=== PATIENT | male | born 1940 | race Native Hawaiian/Other Pacific Islander ===

== ENCOUNTER 2018-06-19 12:48 | Inpatient (IN) | payer MEDICARE, OTHER ==
[2018-06-19 12:49] VITALS: BMI 24.7
[2018-06-19 14:17] LABS: MEAN CORPUSCULAR HEMOGLOBIN 19.3 pg (27.0-31.0); MEAN CORPUSCULAR HGB CONC 31.6 g/dL (33.0-37.0); MEAN PLATELET VOLUME 9.5 fL (7.2-11.7); PLATELET COUNT 233 K/uL (130-400); RBC 7.03 Mil/uL (4.40-5.90); RED CELL DISTRIBUTION WIDTH 19.9 % (11.5-14.5)
[2018-06-19 14:22] LABS: HEMOGLOBIN 13.6 g/dL (12.0-18.0); MEAN CELL VOLUME 60.9 fL (80.0-94.0); WHITE BLOOD COUNT 13.7 K/uL (4.8-10.8)
--- NOTE | 2018-06-19 14:22 | C.PDOC ---
History Of Present Illness 77 year old male presents to ED with complaint of lightheadedness and generalzied weakness. Patient is a poor historian. Patient has a PMHx of hypertension, diabetes, and colorectal cancer. Patient also complains of chest pain that began yesterday. he cannot characterize his pain. states he fell weak and "fell" also rpeorts abdominal pain, again cannot characeterize his pain. very poor historian He is also complaining of experiencing nausea and vomiting. Patient denies fever. all symptoms since yesterday Time Seen by Provider: 06/19/18 13:14 Chief Complaint (Nursing): Dizziness/Lightheaded History Per: Patient History/Exam Limitations: no limitations Onset/Duration Of Symptoms: Days (1) Current Symptoms Are (Timing): Still Present Seizure Or Post-ictal Symptoms: None Severity: None Past Medical History Reviewed: Historical Data, Nursing Documentation, Vital Signs Vital Signs: Last Vital Signs Temp 97.7 F 06/19/18 13:12 Pulse 73 06/19/18 13:12 Resp 20 06/19/18 13:12 BP 180/89 H 06/19/18 13:12 Pulse Ox 94 L 06/19/18 13:12 - Medical History PMH: Diabetes, HTN Other PMH: Colorectal cancer Surgical History: No Surg Hx - [facility] Procedures ENDO EXCISION/DEST OF LESION OR TISSUE OF STOMACH (02/16/13) ENDOSC POLYPECTOMY OF LG INTEST (01/05/13) ESOPHAGOGASTRODUODENOSCOPY [EGD] W/CLOSED BIOPSY (01/05/13) INCIS W REM OF FORIEGN BODY OR DEV FROM SKIN & SUBCUT TISSUE (04/14/13) LG BOWEL STOMA CLOSURE (09/09/12) Family History: States: Unknown Family Hx - Social History Hx Tobacco Use: No Hx Alcohol Use: No Hx Substance Use: No - Immunization History Hx Tetanus Toxoid Vaccination: Yes Hx Influenza Vaccination: Yes Hx Pneumococcal Vaccination: Yes Review Of Systems Constitutional: Positive for: Weakness. Negative for: Fever, Chills Cardiovascular: Positive for: Chest Pain, Light Headedness. Negative for: Palpitations Respiratory: Negative for: Cough, Shortness of Breath Gastrointestinal: Positive for: Nausea, Vomiting. Negative for: Abdominal Pain Neurological: Negative for: Weakness, Numbness, Headache, Dizziness Physical Exam - Physical Exam Appears: Well, Non-toxic, No Acute Distress Skin: Normal Color, Warm, Dry Head: Atraumatic, Normacephalic Neck: Normal ROM, Supple Chest: Symmetrical, No Deformity Cardiovascular: Rhythm Regular, No Murmur Respiratory: No Accessory Muscle Use Gastrointestinal/Abdominal: Soft, No Tenderness Neurological/Psych: Oriented x3, Normal Speech, Normal Cognition ED Course And Treatment - Laboratory Results Result Diagrams: 06/22/18 08:28 06/22/18 08:28 ECG: Interpreted By Me, Viewed By Me ECG Rhythm: Sinus Rhythm, R BBB ECG Interpretation: Normal Interpretation Of ECG: No previous EKG for comparison. Rate From EC O2 Sat by Pulse Oximetry: 94 - Other Rad CXR X-Ray: Interpreted by Me, Viewed By Me Interpretation: Accession No. : [id number]. Patient Name / ID : KANDACE Mims / [id number]. Exam Date : 06/19/2018 13:46:09 ( Approved ). Study Comment : Sex / Age : M / 77Y. Creator : Viktor Valladares MD. Dictator : Viktor Valladares MD. Armature Connector : Stud Master/Mistress : Viktor Valladares MD. Approver2 : Report Date : 06/19/2018 15:30:52. My Comment : . Date of service: 06/19/2018. HISTORY: Chest pain. COMPARISON: Comparison made with prior chest radiograph dated 09/15/2012. FINDINGS: LUNGS: Poor inspiration with low lung volumes, crowded bronchovascular markings and minor bibasilar atelectasis. PLEURA: No significant pleural effusion identified, no pneumothorax apparent. CARDIOVASCULAR: Mild aortic atherosclerotic calcification present. Heart size borderline enlarged.. OSSEOUS STRUCTURES: No significant abnormalities. VISUALIZED UPPER ABDOMEN: Normal. OTHER FINDINGS: Previously noted right IJ central venous access catheter has been removed. IMPRESSION: Poor inspiration with low lung volumes, crowded bronchovascular markings and minor bibasilar atelectasis. NIHSS Stroke Scale 2 - Date/Time Evaluation Performed Date Performed: 06/19/18 Time Performed: 00:56 When Was NIHSS Performed: Baseline - How Severe is the Stroke Level of Consciousness: 0=Alert LOC to Questions: 0=Both comments correct LOC to commands: 0=Obeys both correctly Best Gaze: 0=Normal Visual: 0=No visual loss Facial: 0=Normal Motor Arm - Left: 0=No drift Motor Arm - Right: 0=No drift Motor Leg - Left: 0=No drift Motor Leg - Right: 0=No drift Limb Ataxia: 0=Absent Sensory: 0=Normal Best Language: 0=No aphasia Dysarthia: 0=Normal articulation Extinction & Inattention (Neglect): 0=Normal, no object Score: 0 rTPA Inclusion/Exclusion - Refusal of Treatment Patient Refused Treatment: No - Inclusion Criteria for Altepase Patient is 18 years or Older: Yes The Clinical Diagnosis of Ischemic Stroke That is Causing a Potentially Disabling Neurological Deficit: No Time of Onset is Well Established to be Less Than 270 Minute Before Treatment Would Begin: No Risk/Benefit Discussed With Patient/Family Member Present: Yes Medical Decision Making Medical Decision Making: Impression: 77 year old male with lightheadedness, weakness, and chest pain. ro acs, pe, abdominal, intracranil pathology Plan: EKG and CXR ordered for patient. Labs ordered with troponin and CBC. labs show mild leukcytosis. head ct infarct ?age, mild elevated trop heparin asa started. accepted pmd pain free in er s/p meds. ct abd no acute findings. discussed with pmd accepts. no hemorrhage on ct. heparin startted for nstemi. neuro intact in er. Disposition - Disposition Disposition: HOSPITALIZED Disposition Time: 18:00 Condition: FAIR - Clinical Impression Clinical Impression: Syncope, NSTEMI (non-ST elevated myocardial infarction), Stroke - Scribe Statement The provider has reviewed the documentation as recorded by the Scribe (Ayah Nicole) All medical record entries made by the Scribe were at my direction and personally dictated by me. I have reviewed the chart and agree that the record accurately reflects my personal performance of the history, physical exam, medical decision making, and the department course for this patient. I have also personally directed, reviewed, and agree with the discharge instructions and disposition. Decision To Admit - Pt Status Changed To: Hospital Disposition Of: Inpatient - Admit Certification Admit to Inpatient:: After my assessment, the patient will require hospitalization for at least two midnights. This is because of the severity of symptoms shown, intensity of services needed, and/or the medical risk in this patient being treated as an outpatient. - InPatient: Physician Admission Certification: I certify that this patient requires 2 or more midnights of care for the following reason:: needs cards and neuro eval - . Bed Request Type: Telemetry Admitting Physician: Brian Anthony Patient Diagnosis: Syncope, NSTEMI (non-ST elevated myocardial infarction), Stroke
[2018-06-19 14:27] LABS: PROTHROMBIN TIME 10.9 SECONDS (9.7-12.2)
[2018-06-19 15:00] LABS: LYMPHOCYTE 11 % (20-40); MONOCYTE 4 % (0-10); NEUTROPHIL 85 % (50-75); TOTAL CELLS COUNTED 100
[2018-06-19 15:01] LABS: ANISOCYTOSIS MODERATE; HYPOCHROMIC SLIGHT; MICROCYTOSIS MODERATE; PLATELET ESTIMATE NORMAL (NORMAL); POIKILOCYTOSIS SLIGHT; POLYCHROMIC SLIGHT; TARGET CELLS SLIGHT
[2018-06-19 15:02] LABS: OVALOCYTES SLIGHT; SCHISTOCYTES SLIGHT; SPHEROCYTES SLIGHT; TEARDROP CELLS SLIGHT
--- NOTE | 2018-06-19 15:34 | RAD ---
Date of service: 06/19/2018 HISTORY: Chest pain COMPARISON: Comparison made with prior chest radiograph dated 09/15/2012 FINDINGS: LUNGS: Poor inspiration with low lung volumes, crowded bronchovascular markings and minor bibasilar atelectasis. PLEURA: No significant pleural effusion identified, no pneumothorax apparent. CARDIOVASCULAR: Mild aortic atherosclerotic calcification present. Heart size borderline enlarged.. OSSEOUS STRUCTURES: No significant abnormalities. VISUALIZED UPPER ABDOMEN: Normal. OTHER FINDINGS: Previously noted right IJ central venous access catheter has been removed. IMPRESSION: Poor inspiration with low lung volumes, crowded bronchovascular markings and minor bibasilar atelectasis.
[2018-06-19 15:49] LABS: ALB/GLOB RATIO 1.4 (1.0-2.1); ALBUMIN 5.1 g/dL (3.5-5.0); ALT/SGPT 23 U/L (21-72); AST/SGOT 31 U/L (17-59); BLOOD UREA NITROGEN 14 mg/dL (9-20); CALCIUM 10.2 mg/dl (8.6-10.4); GFR NON-AFRICAN AMERICAN > 60; LIPASE 44 U/L (23-300)
[2018-06-19 16:00] LABS: URINE BILIRUBIN NEGATIVE (NEGATIVE); URINE BLOOD NEGATIVE (NEGATIVE); URINE CLARITY Clear (Clear); URINE COLOR Straw (YELLOW); URINE GLUCOSE (UA) 3+ mg/dL (Normal); URINE LEUKOCYTE ESTERASE NEG Leu/uL (Negative); URINE PROTEIN 2+ mg/dL (NEGATIVE); URINE UROBILINOGEN NORMAL mg/dL (0.2-1.0)
[2018-06-19] MEDS ORDERED: Iohexol 350mg/ml 100 ML ONE (16:42)
[2018-06-19] MEDS ORDERED: Labetalol 25mg/5ml Syringe IVP STA (18:47)
[2018-06-19] MEDS ORDERED: Heparin25000 units/250ml 1/2NS 25,000 UNITS/250 ML BAG IV ONE (18:47)
[2018-06-19] MEDS ORDERED: Labetalol 5mg/ml (4ml) ONE (19:02)
[2018-06-19] MEDS ORDERED: Aspirin 325 mg EC Tablets PO ONE (19:02)
--- NOTE | 2018-06-20 04:17 | HP ---
HISTORY OF PRESENT ILLNESS: This is a 77-year-old Israeli male who came to the emergency room with history of feeling lightheaded and dizzy. The patient complained of generalized weakness. The patient also complained of chest pain for the last 24 hours. The patient has nausea and vomiting. The patient is a poor historian. No diaphoresis. Dyspnea on exertion present. No edema of the legs. No fever. REVIEW OF SYSTEMS: CARDIOVASCULAR SYSTEM: Positive for chest pain, lightheadedness. RESPIRATORY SYSTEM: Positive for dyspnea on exertion. GASTROINTESTINAL SYSTEM: Positive for nausea and feeling vomiting. CENTRAL NERVOUS SYSTEM: Complaint of lightheadedness and generalized weakness. Dizziness. No fever. No edema on the legs. GENITOURINARY: No urinary complaint. PSYCHIATRIC: The patient is stable. All other systems are negative. FAMILY HISTORY: No known inherited disease. SOCIAL HISTORY: Nonsmoker, nonalcoholic. No IVDA. ALLERGIES: NO KNOWN ALLERGY. MEDICATIONS: The patient's medications reviewed by me. PAST MEDICAL HISTORY: History of colorectal cancer, hypertension, diabetes. PHYSICAL EXAMINATION: GENERAL: This is a 77-year-old Israeli male, alert, oriented, tachypneic, dyspneic. VITAL SIGNS: Temperature 97.7, pulse 73, respirations 20, blood pressure 180/89 mmHg, pulse ox is 94% at room air. HEENT: Normal. NECK: JVP flat. Carotid, no bruits. LUNGS: No rales. No wheezing. HEART: S1 and S2, normal. No gallop. No murmur. ABDOMEN: Soft, nontender. No organomegaly. CENTRAL NERVOUS SYSTEM: No focal neurological deficit. No edema of the legs. LABORATORY DATA: On admission, EKG, no acute ST-T changes. Leukocytosis present. Blood sugar 204. Troponin is positive. IMPRESSION: Known ST-elevation, myocardial infarction, coronary artery disease, congestive heart failure, hypertension, diabetes, colorectal cancer. PLAN: The patient will be admitted to the floor. We will do workup to rule out myocardial infarction. Other workup as needed. Brian Anthony MD
--- NOTE | 2018-06-20 06:58 | CP.PCM.CON ---
History of Present Illness - History of Present Illness History of Present Illness: 77 M consulted for chest pain and NonSTEMI Likely needs cardiac cath in am Patient already on IV Heparin and ASA ECHO ordered Plavix 75mg po x 1 given Will keep him NPO except medication for possible cath tomorrow 77 year old male presents to ED with complaint of lightheadedness and generalzied weakness. Patient is a poor historian. Patient has a PMHx of hypertension, diabetes, and colorectal cancer. Patient also complains of chest pain that began yesterday. he cannot characterize his pain. states he fell weak and "fell" also rpeorts abdominal pain, again cannot characeterize his pain. very poor historian He is also complaining of experiencing nausea and vomiting. Patient denies fever. all symptoms since yesterday Chief Complaint (Nursing): Dizziness/Lightheaded History Per: Patient History/Exam Limitations: no limitations Onset/Duration Of Symptoms: Days (1) Current Symptoms Are (Timing): Still Present Seizure Or Post-ictal Symptoms: None Severity: None Past Medical History Reviewed: Historical Data, Nursing Documentation, Vital Signs Vital Signs: Last Vital Signs Temp 97.7 F 06/19/18 13:12 Pulse 73 06/19/18 13:12 Resp 20 06/19/18 13:12 BP 180/89 H 06/19/18 13:12 Pulse Ox 94 L 06/19/18 13:12 - Medical History PMH: Diabetes, HTN Other PMH: Colorectal cancer Surgical History: No Surg Hx - [facility] Procedures ENDO EXCISION/DEST OF LESION OR TISSUE OF STOMACH (02/16/13) ENDOSC POLYPECTOMY OF LG INTEST (01/05/13) ESOPHAGOGASTRODUODENOSCOPY [EGD] W/CLOSED BIOPSY (01/05/13) INCIS W REM OF FORIEGN BODY OR DEV FROM SKIN & SUBCUT TISSUE (04/14/13) LG BOWEL STOMA CLOSURE (09/09/12) Family History: States: Unknown Family Hx - Social History Hx Tobacco Use: No Hx Alcohol Use: No Hx Substance Use: No - Immunization History Hx Tetanus Toxoid Vaccination: Yes Hx Influenza Vaccination: Yes Hx Pneumococcal Vaccination: Yes Review Of Systems Constitutional: Positive for: Weakness. Negative for: Fever, Chills Cardiovascular: Positive for: Chest Pain, Light Headedness. Negative for: Palpitations Respiratory: Negative for: Cough, Shortness of Breath Gastrointestinal: Positive for: Nausea, Vomiting. Negative for: Abdominal Pain Neurological: Negative for: Weakness, Numbness, Headache, Dizziness Physical Exam - Physical Exam Appears: Well, Non-toxic, No Acute Distress Skin: Normal Color, Warm, Dry Head: Atraumatic, Normacephalic Neck: Normal ROM, Supple Chest: Symmetrical, No Deformity Cardiovascular: Rhythm Regular, No Murmur Respiratory: No Accessory Muscle Use Gastrointestinal/Abdominal: Soft, No Tenderness Neurological/Psych: Oriented x3, Normal Speech, Normal Cognition Past Patient History - Past Medical History & Family History Past Medical History?: Yes - Past Social History Smoking Status: Never Smoked - CARDIAC Hx Hypertension: Yes - NEUROLOGICAL Hx Dizziness: Yes Hx Syncope: Yes - ENDOCRINE/METABOLIC Hx Endocrine Disorders: Yes Hx Diabetes Mellitus Type 2: Yes - HEMATOLOGICAL/ONCOLOGICAL Hx Blood Disorders: Yes Hx Cancer: Yes (Colorectal) Hx Chemotherapy: Yes (completed) - MUSCULOSKELETAL/RHEUMATOLOGICAL Hx Falls: Yes - GASTROINTESTINAL Hx Bowel Surgery: Yes (Colon CA removed) - PSYCHIATRIC Hx Substance Use: No - SURGICAL HISTORY Hx Surgeries: Yes Other/Comment: Colorectal surgery, hx of colostomy reversed. - ANESTHESIA Hx Anesthesia: Yes Hx Anesthesia Reactions: No Has any member of the family had a problem w/ anesthesia?: No Meds Allergies/Adverse Reactions: Allergies Allergy/AdvReac Type Severity Reaction Status Date / Time No Known Allergies Allergy Verified 06/19/18 13:16 - Medications Medications: Current Medications Aspirin (Aspirin Chewable) 81 mg PO DAILY [facility] Heparin Sodium/Sodium Chloride (Heparin 93851 Units/250ml 1/2 Normal Saline) 25,000 units in 250 mls @ 9.798 mls/hr IV .Q24H ONE; Protocol Stop: 06/20/18 18:46 Last Titration: 06/20/18 03:46 Dose: 9 units/kg/hr, 7.348 mls/hr Metoprolol Tartrate (Lopressor) 50 mg PO BID [facility] Last Admin: 06/19/18 22:12 Dose: 50 mg Sitagliptin Phosphate (Januvia) 100 mg PO DAILY [facility] Results - Vital Signs Recent Vital Signs: Last Vital Signs Temp 98.4 F 06/19/18 23:56 Pulse 68 06/20/18 00:59 Resp 20 06/19/18 23:56 BP 154/67 H 06/19/18 23:56 Pulse Ox 95 06/19/18 23:56 - Labs Result Diagrams: 06/21/18 06:54 06/21/18 06:54 Labs: Laboratory Results - last 24 hr 06/19/18 06/19/18 06/19/18 14:09 14:09 15:28 WBC 13.7 H D RBC 7.03 H Hgb 13.6 D Hct 42.8 MCV 60.9 L D MCH 19.3 L MCHC 31.6 L RDW 19.9 H Plt Count 233 MPV 9.5 Neutrophils % (Manual) 85 H Lymphocytes % (Manual) 11 L Monocytes % (Manual) 4 Platelet Estimate Normal Polychromasia Slight Hypochromasia (manual) Slight Poikilocytosis (manual Slight Anisocytosis (manual) Moderate Microcytosis (manual) Moderate Macrocytosis (manual) Slight Spherocytes Slight Target Cells Slight Tear Drop Cells Slight Ovalocytes Slight Schistocytes Slight PT 10.9 INR 1.0 APTT 26 D-Dimer, Quantitative Sodium 138 Potassium 4.9 Chloride 103 Carbon Dioxide 23 Anion Gap 18 BUN 14 Creatinine 0.7 L Est GFR ( Amer) > 60 Est GFR (Non-Af Amer) > 60 POC Glucose (mg/dL) Random Glucose 204 H D Calcium 10.2 Total Bilirubin 0.7 AST 31 ALT 23 Alkaline Phosphatase 116 Troponin I 0.1370 H* Total Protein 8.9 H Albumin 5.1 H Globulin 3.7 Albumin/Globulin Ratio 1.4 Lipase 44 Urine Color Urine Clarity Urine pH Ur Specific [place] Urine Protein Urine Glucose (UA) Urine Ketones Urine Blood Urine Nitrate Urine Bilirubin Urine Urobilinogen Ur Leukocyte Esterase Urine WBC (Auto) Urine RBC (Auto) 06/19/18 06/19/18 06/20/18 15:43 15:55 02:04 WBC RBC Hgb Hct MCV MCH MCHC RDW Plt Count MPV Neutrophils % (Manual) Lymphocytes % (Manual) Monocytes % (Manual) Platelet Estimate Polychromasia Hypochromasia (manual) Poikilocytosis (manual Anisocytosis (manual) Microcytosis (manual) Macrocytosis (manual) Spherocytes Target Cells Tear Drop Cells Ovalocytes Schistocytes PT INR APTT 128 H* D D-Dimer, Quantitative < 200 Sodium Potassium Chloride Carbon Dioxide Anion Gap BUN Creatinine Est GFR ( Amer) Est GFR (Non-Af Amer) POC Glucose (mg/dL) Random Glucose Calcium Total Bilirubin AST ALT Alkaline Phosphatase Troponin I Total Protein Albumin Globulin Albumin/Globulin Ratio Lipase Urine Color Straw Urine Clarity Clear Urine pH 6.0 Ur Specific [place] 1.028 Urine Protein 2+ H Urine Glucose (UA) 3+ H Urine Ketones 1+ H Urine Blood Negative Urine Nitrate Negative Urine Bilirubin Negative Urine Urobilinogen Normal Ur Leukocyte Esterase Neg Urine WBC (Auto) < 1 Urine RBC (Auto) 1 06/20/18 06:24 WBC RBC Hgb Hct MCV MCH MCHC RDW Plt Count MPV Neutrophils % (Manual) Lymphocytes % (Manual) Monocytes % (Manual) Platelet Estimate Polychromasia Hypochromasia (manual) Poikilocytosis (manual Anisocytosis (manual) Microcytosis (manual) Macrocytosis (manual) Spherocytes Target Cells Tear Drop Cells Ovalocytes Schistocytes PT INR APTT D-Dimer, Quantitative Sodium Potassium Chloride Carbon Dioxide Anion Gap BUN Creatinine Est GFR ( Amer) Est GFR (Non-Af Amer) POC Glucose (mg/dL) 185 H Random Glucose Calcium Total Bilirubin AST ALT Alkaline Phosphatase Troponin I Total Protein Albumin Globulin Albumin/Globulin Ratio Lipase Urine Color Urine Clarity Urine pH Ur Specific [place] Urine Protein Urine Glucose (UA) Urine Ketones Urine Blood Urine Nitrate Urine Bilirubin Urine Urobilinogen Ur Leukocyte Esterase Urine WBC (Auto) Urine RBC (Auto) Assessment & Plan - Assessment and Plan (Free Text) Assessment: 77 M consulted for chest pain and NonSTEMI Likely needs cardiac cath in am Patient already on IV Heparin and ASA ECHO ordered Plavix 75mg po x 1 given Will keep him NPO except medication for possible cath tomorrow
--- NOTE | 2018-06-20 08:35 | CT ---
Date of service: 06/19/2018 PROCEDURE: CT HEAD WITHOUT CONTRAST. HISTORY: generalized weakness COMPARISON: None available. TECHNIQUE: Axial computed tomography images were obtained through the head/brain without intravenous contrast. Radiation dose: Total exam DLP = 1006.91 mGy-cm. This CT exam was performed using one or more of the following dose reduction techniques: Automated exposure control, adjustment of the mA and/or kV according to patient size, and/or use of iterative reconstruction technique. FINDINGS: HEMORRHAGE: No intracranial hemorrhage. BRAIN: No mass effect or edema. Probable subacute infarct in the left cerebellum. 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 VENTRICLES: Unremarkable. No hydrocephalus. CALVARIUM: Unremarkable. PARANASAL SINUSES: Unremarkable as visualized. No significant inflammatory changes. MASTOID AIR CELLS: Unremarkable as visualized. No inflammatory changes. OTHER FINDINGS: None. IMPRESSION: Probable subacute infarct in the left cerebellum. 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
--- NOTE | 2018-06-20 08:49 | CT ---
Date of service: 06/19/2018 PROCEDURE: CT Abdomen and Pelvis with contrast HISTORY: abd pain nausea vomiting COMPARISON: None. TECHNIQUE: Contrast dose: Radiation dose: Total exam DLP = 892.92 mGy-cm. This CT exam was performed using one or more of the following dose reduction techniques: Automated exposure control, adjustment of the mA and/or kV according to patient size, and/or use of iterative reconstruction technique. FINDINGS: LOWER THORAX: Unremarkable. LIVER: Unremarkable. No gross lesion or ductal dilatation. GALLBLADDER AND BILE DUCTS: Cholelithiasis. PANCREAS: Unremarkable. No gross lesion or ductal dilatation. SPLEEN: Unremarkable. ADRENALS: Unremarkable. No mass. KIDNEYS AND URETERS: Redemonstration of multiple bilateral renal cysts with a multi the septated partly calcified rimmed cyst in the lower pole the left kidney measuring 4.7 centimeters, unchanged. VASCULATURE: Unremarkable. No aortic aneurysm. No aortic atherosclerotic calcification or mural plaque present. BOWEL: Unremarkable. No obstruction. No gross mural thickening. APPENDIX: Normal appendix. PERITONEUM: Unremarkable. No free fluid. No free air. LYMPH NODES: Unremarkable. No enlarged lymph nodes. BLADDER: Unremarkable. REPRODUCTIVE: Unremarkable. BONES: No acute fracture. OTHER FINDINGS: Evidence of prior bowel surgery. IMPRESSION: No acute pathology. Stable bilateral simple and complex renal cysts. Cholelithiasis.
[2018-06-20 09:59] LABS: CK-MB 0.89 ng/mL (0.0-3.38)
[2018-06-20 10:21] LABS: TROPONIN I 0.122 ng/mL (0.00-0.120)
--- NOTE | 2018-06-20 12:00 | CP.PCM.PN ---
Subjective - Date & Time of Evaluation Date of Evaluation: 06/20/18 Time of Evaluation: 11:57 - Subjective Subjective: FEELS SAME. MILD DIZZINESS PRESENT. NO CHEST PAIN. Objective - Vital Signs/Intake and Output Vital Signs (last 24 hours): Temp Pulse Resp BP Pulse Ox 97.7 F 66 20 154/67 H 94 L 06/20/18 08:00 06/20/18 10:07 06/20/18 08:00 06/20/18 10:07 06/20/18 08:00 Intake and Output: 06/20/18 06/20/18 06:59 18:59 Output Total 200 Balance -200 - Medications Medications: Current Medications Aspirin (Aspirin Chewable) 81 mg PO DAILY [facility] Last Admin: 06/20/18 10:05 Dose: 81 mg Heparin Sodium/Sodium Chloride (Heparin 96302 Units/250ml 1/2 Normal Saline) 25,000 units in 250 mls @ 9.798 mls/hr IV .Q24H ONE; Protocol Stop: 06/20/18 18:46 Last Titration: 06/20/18 03:46 Dose: 9 units/kg/hr, 7.348 mls/hr Metoprolol Tartrate (Lopressor) 50 mg PO BID [facility] Last Admin: 06/20/18 10:05 Dose: 50 mg Sitagliptin Phosphate (Januvia) 100 mg PO DAILY [facility] Last Admin: 06/20/18 10:05 Dose: 100 mg - Labs Labs: 06/19/18 14:09 06/19/18 15:28 PT 10.9 SECONDS (9.7-12.2) 06/19/18 14:09 INR 1.0 06/19/18 14:09 APTT 77 SECONDS (21-34) H D 06/20/18 08:23 - Constitutional Appears: No Acute Distress, Chronically Ill - Eye Exam Eye Exam: Normal appearance, PERRL - ENT Exam ENT Exam: Mucous Membranes Moist - Neck Exam Neck Exam: Normal Inspection - Respiratory Exam Respiratory Exam: Clear to Ausculation Bilateral, NORMAL BREATHING PATTERN - Cardiovascular Exam Cardiovascular Exam: Bradycardia, REGULAR RHYTHM, +S1, +S2 - GI/Abdominal Exam GI & Abdominal Exam: Soft, Normal Bowel Sounds - Extremities Exam Extremities Exam: Full ROM, Normal Capillary Refill, Normal Inspection. absent: Joint Swelling, Pedal Edema - Neurological Exam Neurological Exam: Alert, Awake, CN II-XII Intact, Normal Gait, Oriented x3 - Psychiatric Exam Psychiatric exam: Normal Affect, Normal Mood Assessment and Plan - Assessment and Plan (Free Text) Assessment: NON ST ELEV [place]. CAD. DM. HTN. CA RECTUM. SUBACUTE INFARCT BRAIN. Plan: CONSULT DR. LUND. CARDIAC EVAL ANGIOGRAM.
[2018-06-20 14:30] LABS: CK-MB 0.92 ng/mL (0.0-3.38); TROPONIN I 0.125 ng/mL (0.00-0.120)
[2018-06-20] MEDS ORDERED: Iodixanol 320 MG/ML 100 ML BOTTLE IV ONE (15:41)
[2018-06-20] MEDS ORDERED: Lidocaine 2% MPF (5 ml) Inj ONE (15:57)
[2018-06-20] MEDS ORDERED: Lidocaine Hydrochloride 5 ML INJ ONE (15:59)
[2018-06-20] MEDS ORDERED: Midazolam 2 MG/2 ML VIAL ONE (16:05)
[2018-06-20] MEDS ORDERED: Labetalol 5mg/ml (4ml) ONE ×2 (16:18→16:27)
[2018-06-20] MEDS ORDERED: Enalaprilat 2.5 MG/2 ML ONE (16:20)
--- NOTE | 2018-06-20 16:48 | CP.PCM.PN ---
Subjective - Date & Time of Evaluation Date of Evaluation: 06/20/18 Time of Evaluation: 16:47 - Subjective Subjective: patient s/p cath Non obstructive coronaries Normal EF Medical management Objective - Vital Signs/Intake and Output Vital Signs (last 24 hours): Temp Pulse Resp BP Pulse Ox 97.7 F 54 L 20 154/67 H 94 L 06/20/18 08:00 06/20/18 12:00 06/20/18 08:00 06/20/18 10:07 06/20/18 08:00 Intake and Output: 06/20/18 06/20/18 06:59 18:59 Output Total 200 Balance -200 - Medications Medications: Current Medications Amlodipine Besylate (Norvasc) 5 mg PO DAILY [facility] Aspirin (Aspirin Chewable) 81 mg PO DAILY [facility] Last Admin: 06/20/18 10:05 Dose: 81 mg Losartan Potassium (Cozaar) 100 mg PO DAILY [facility] Rosuvastatin Calcium (Crestor) 2.5 mg PO HS [facility] Sitagliptin Phosphate (Januvia) 100 mg PO DAILY [facility] Last Admin: 06/20/18 10:05 Dose: 100 mg - Labs Labs: 06/19/18 14:09 06/19/18 15:28 PT 10.9 SECONDS (9.7-12.2) 06/19/18 14:09 INR 1.0 06/19/18 14:09 APTT 77 SECONDS (21-34) H D 06/20/18 08:23
--- NOTE | 2018-06-20 18:29 | CARD ---
APPROVED REPORT Date of service: 06/20/2018 EXAM: Two-dimensional and M-mode echocardiogram with Doppler and color Doppler. Other Information Quality : GoodRhythm : INDICATION Dizziness and Vertigo Syncope Non STEMI RISK FACTORS Hypertension Diabetes 2D DIMENSIONS IVSd1.5 (0.7-1.1cm)LVDd3.1 (3.9-5.9cm) PWd1.3 (0.7-1.1cm)LA Xxyqwj39 (18-58mL) LVDs2.0 (2.5-4.0cm)FS (%) 36.1 % LVEF (%)67.2 (>50%)LVEF (Haque's)67.33 % M-Mode DIMENSIONS Left Atrium (MM)3.73 (2.5-4.0cm)IVSd0.79 (0.7-1.1cm) Aortic Root3.28 (2.2-3.7cm)LVDd4.81 (4.0-5.6cm) Aortic Cusp Exc.1.94 (1.5-2.0cm)PWd0.86 (0.7-1.1cm) FS (%) 51 %LVDs2.37 (2.0-3.8cm) Mitral Valve MV E Kgojbsar76.1cm/sMV A Jwbokfli714.0cm/sE/A ratio0.7 TDI Lateral E' Peak V3.64cm/sMedial E' Peak V3.25cm/sE/Lateral E'26.7 E/Medial E'29.9 Tricuspid Valve TR Peak Yqlpgqoz674rs/sTR Peak Gr.[id number] LEFT VENTRICLE The left ventricle is normal size. There is mild to moderate concentric left ventricular hypertrophy. The left ventricular function is normal. The left ventricular ejection fraction is within the normal range 67% No regional wall motion abnormalities noted. Transmitral Doppler flow pattern is Grade I-abnormal relaxation pattern. No left ventricle thrombus noted on this study. There is no ventricular septal defect visualized. There is no left ventricular aneurysm. There is no mass noted in the left ventricle. RIGHT VENTRICLE The right ventricle is normal size. There is normal right ventricular wall thickness. The right ventricular systolic function is normal. ATRIA The left atrium size is normal. The right atrium size is normal. The interatrial septum is intact with no evidence for an atrial septal defect. AORTIC VALVE The aortic valve iis thickened and opens normally. No aortic regurgitation is present. There is no aortic valvular stenosis. There is no aortic valvular vegetation. MITRAL VALVE The mitral valve leaflets are thickened but the valve opens well. There is no evidence of mitral valve prolapse. There is no mitral valve stenosis. There is trace mitral valve regurgitation noted. TRICUSPID VALVE The tricuspid valve is normal in structure and function. There is mild tricuspid valve regurgitation noted. Estiamted PA systolic pressure is 35 mm Hg. There is no tricuspid valve prolapse or vegetation. There is no tricuspid valve stenosis. PULMONIC VALVE The pulmonary valve is normal in structure and function. There is no pulmonic valvular regurgitation. There is no pulmonic valvular stenosis. GREAT VESSELS The aortic root is normal in size. The ascending aorta is normal in size. The pulmonary artery is normal. The IVC is normal in size and collapses >50% with inspiration. PERICARDIAL EFFUSION The pericardium appears normal. There is no pleural effusion. <Conclusion> The left ventricular function is normal. There is mild to moderate concentric left ventricular hypertrophy. Transmitral Doppler flow pattern is Grade I-abnormal relaxation pattern. Thickened aortic and mitral leaflets with normal valve opening. Normal Doppler.
[2018-06-20 20:53] LABS: CK-MB 0.79 ng/mL (0.0-3.38); TROPONIN I 0.105 ng/mL (0.00-0.120)
[2018-06-20] MEDS ORDERED: Enalaprilat 2.5 MG/2 ML IV STA (21:26)
[2018-06-20] MEDS ORDERED: Enalaprilat 2.5 MG/2 ML IV ONE (21:26)
[2018-06-20] MEDS: Rosuvastatin Calcium 2.5 mg Tab PO SCH (21:43)
--- NOTE | 2018-06-20 22:27 | CARD ---
APPROVED REPORT Date of service: 06/19/2018 EKG Measurement Heart [id number] <Conclusion> Normal sinus rhythm Right bundle branch block T wave abnormality, consider inferior ischemia Abnormal ECG
[2018-06-20] MEDS ORDERED: Enalaprilat 2.5 MG/2 ML IV PRN (23:22)
--- NOTE | 2018-06-21 05:40 | CON ---
DATE: 06/20/2018 LOCATION: 550, bed B. ATTENDING PHYSICIAN: Jr Anthony M.D. REASON FOR CONSULTATION: Abnormal CAT scan and fall. CHIEF COMPLAINT: The patient was brought into [facility] following unsteady gait and fall at home. From neurological point of view, I was called in to evaluate him for further management. HISTORY OF PRESENT ILLNESS: Mr. Sarah Anthony is a 77-year-old right handed, Stateless male with a known history of rectal cancer, been operated, treated with chemo as well as radiation therapy and prostate cancer in the past, being treated well; presenting with walking with the cane for the last 10 years. He woke up about two days ago with unsteady gait and fell on his left side. No documented loss of consciousness or witnessed seizure activities from the fall. No similar episodes in the past. He denies headache. He denies change in mental status from the fall. He denies any visual or bulbar dysfunction. However, family noticed speech is a different; however, he admits to problem in swallowing for more than 5 years. PAST MEDICAL HISTORY: Hypertension, nkq-kygceop-bykdczode diabetes mellitus, dyslipidemia, rectal cancer and prostate cancer in the past. PERSONAL HISTORY: Denies smoking or alcohol use. MEDICATIONS: Aspirin, Cozaar, Crestor, Januvia, Lovenox, Norvasc. PHYSICAL EXAMINATION: VITAL SIGNS: Blood pressure 154/67, mean artery pressure of 96, respiratory rate 18, temperature afebrile. NECK: Supple. No carotid bruits. HEART: Heart sounds regular. CHEST: Fair air entry. EXTREMITIES: No edema in legs. NEUROLOGIC EXAMINATION: Mental status examination, the patient is examined in the presence of all family members. He is awake, alert and oriented to person, place and time. Speech is fluent in his language. He moves all four extremities against gravity. Cranial nerve examination, responds to visual drift. Pupils reactive. Extraocular movement seems to be intact. No lateral gaze or down gaze nystagmus. No facial sensory deficit. No facial asymmetry. Hearing is normal. Tongue is midline and tongue is dry. Motor examination, he could able to lift both upper extremities and lower extremities against the gravity. Deep tendon reflexes are absent. Plantars are upgoing on both sides. Sensory examination grossly intact. Mildly distal sensory motor neuropathy. COORDINATION: Mild dysmetria on finger-nose testing noted on both sides. CONCLUSION: As per history gathered from him and family members and medical records from the computer as per neurological examination, the patient does have mid cerebellar dysfunction, superimposed appendicular dysfunction, consistent with cerebral artery ischemic process because of the nature of the story. This probably is a large vessel disease, either it could be cardiac or cryptogenic embolic source. The patient also showed evidence of bilaterally symmetric sensorimotor neuropathy. DIAGNOSTIC DATA: CT of the head reviewed, huge lucency at left cerebellar region with effacement of lower brainstem. EKG, normal sinus rhythm. LABORATORY DATA: WBC 13.7, hemoglobin 13.6, hematocrit 42.8, platelet 233. PT 10.9, INR 1, PTT 26. Sodium 138, potassium 4.9, chloride 103, bicarbonate 23, BUN 14, creatinine 0.7, glucose 157, troponin 0.1250, HDL 74, chloride cholesterol 212, LDL 124. RECOMMENDATIONS: 1. Continue antiplatelets with statin and angiotensin receptor blockers. 2. Keep him n.p.o. 3. Move him to the floor next to the nurses' station. 4. MRI of the brain to be done to assess the stroke. 5. Carotid Doppler to assess the vascular stenosis. 6. EEG to rule out any paroxysmal activities preceding his fall. The patient's condition has been extensively discussed with all family members. He has agreed with the plan of management. He was really nice. Salvatore Lyons MD
[2018-06-21 07:02] LABS: HEMOGLOBIN 12.9 g/dL (12.0-18.0); MEAN CELL VOLUME 61.2 fL (80.0-94.0); MEAN CORPUSCULAR HEMOGLOBIN 19.2 pg (27.0-31.0); MEAN CORPUSCULAR HGB CONC 31.3 g/dL (33.0-37.0); MEAN PLATELET VOLUME 9.1 fL (7.2-11.7); RBC 6.71 Mil/uL (4.40-5.90); RED CELL DISTRIBUTION WIDTH 19.6 % (11.5-14.5); WHITE BLOOD COUNT 11.9 K/uL (4.8-10.8)
[2018-06-21 07:22] LABS: ALB/GLOB RATIO 1.3 (1.0-2.1); ALBUMIN 4.3 g/dL (3.5-5.0); ALT/SGPT 21 U/L (21-72); AST/SGOT 29 U/L (17-59); BLOOD UREA NITROGEN 32 mg/dL (9-20); CALCIUM 9.6 mg/dl (8.6-10.4); GFR NON-AFRICAN AMERICAN > 60
--- NOTE | 2018-06-21 07:56 | CARDCATH ---
PROCEDURE DATE: 06/20/2018 PROCEDURES: 1. Left heart catheterization. 2. Coronary angiogram. CLINICAL INDICATIONS: 1. Chest pain. 2. Non ST-elevation myocardial infarction. 3. Coronary artery disease. 4. Hypertension. 5. Hyperlipidemia. 6. Diabetes. REFERRING PHYSICIAN: Brian Anthony MD. PERFORMING PHYSICIAN: Damion Heaton MD. PROCEDURE: After informed consent, the patient was prepped and draped in the usual sterile fashion. A 2% lidocaine was given in the right groin for local anesthesia. Using micropuncture technique, 6-Swedish sheath was introduced through right common femoral artery. A JL4 6-Swedish diagnostic catheter engaged into left main coronary artery. Contrast injected and left coronary angiogram was done and the catheter was exchanged to JR-4 diagnostic catheter. The catheter was inserted into left ventricle. LVEDP measured. Contrast injected and left ventricular angiogram was done. The catheter was pulled back across the aortic valve. Gradient across the aortic valve was measured. The same catheter engaged into right coronary artery. Contrast injected and right coronary angiogram was done. The patient tolerated the procedure well. Postprocedure, Mynx closure device deployed with excellent hemostasis. Radiological supervision and radiological interpretation of the coronary imaging was done. FINDINGS: 1. Left main coronary artery is patent. 2. LAD and diagonal branches are patent. 3. Left circumflex and obtuse marginal branches are patent. 4. Right coronary artery is dominant. Proximal right coronary artery has 50% to 55% concentric stenosis. Mid and distal right coronary artery is patent. 5. LV ejection fraction is approximately 65%. No wall motion abnormalities noted. EDP is 18. No gradient across the aortic valve. IMPRESSION: 1. Nonobstructive coronaries as described above. Right coronary artery has a approximately 50% to 55% concentric stenosis. 2. Normal left ventricular systolic function. PLAN: Recommend medical management. Damion Heaton MD
[2018-06-21 08:10] LABS: EOS # 0.2 K/uL (0.0-0.7); LYMPH # 1.6 K/uL (1.0-4.3); MONO # 0.8 K/uL (0.0-0.8); NEUT # 9.3 K/uL (1.8-7.0)
[2018-06-21 08:24] LABS: LYMPH # 1.5 K/uL (1.0-4.3); MONO # 0.5 K/uL (0.0-0.8); NEUT # 11.7 K/uL (1.8-7.0)
--- NOTE | 2018-06-21 08:24 | PN ---
DATE: 06/21/2018 LOCATION: 665, bed A. SUBJECTIVE: This 77-year-old male seen and examined initially for GI consultation on 06/20/2018 as requested by the admitting MD, Dr. Kaylah Anthony, reexamined again today without significant clinical changes or reported active bleeding, appeared to be somewhat more awake, alert, oriented, but complaining of generalized weakness and malaise. No reported actual chest pain, palpitation or significant shortness of breath. However, the patient has intermittent period of mild nausea and dyspepsia with recent change of bowel movement habit. Most recent lab results showed leukocytosis of 13.7 with normal hemoglobin and hematocrit but low indices with normal platelet count with latest PT of 77. Blood glucose level 157 with increased troponin level, but the latest reported to be normal. Today's lab results still pending. Most recently done abdominal and pelvic CAT scan report is seen indicative of cholelithiasis but no acute other pathology with stable bilateral simple and complex renal cyst. On record, the patient had a cardiac cath, official report still pending, yesterday. PHYSICAL EXAMINATION: GENERAL: A 77-year-old male. VITAL SIGNS: Afebrile with pulse of 72, respiratory rate 20 to 22, blood pressure of 182/74. HEENT: Showed pale dry oral mucous membrane. Nonicteric sclerae. LUNGS: Few scattered crepitation. Decreased air entry at bases. HEART: Positive S1 and S2. ABDOMEN: Soft with mild generalized tenderness. No mass or organomegaly. No rebound tenderness or guarding. NEUROLOGIC: No reported new neurological deficits, sensory or motor. No reported new focal deficits. IMPRESSION: 1. Re-exacerbation of peptic ulcer disease. 2. Evidence of bilateral symmetrical neuropathy. 3. Known history of hypertension with diabetes mellitus. 4. Re-exacerbation of peptic ulcer disease, the last endoscopy was done more than 6 years ago. 5. Leukocytosis, of unclear etiology. 6. Coagulopathy, drug-induced. SUGGESTIONS: 1. Continue current management. 2. Due to the patient's known history of colon CA before with status post partial colon resection, cancer markers to be repeated and the patient may need endoscopic evaluation of the lower GI tract only if stable clinically and after case to be discussed at length with the care consultant on the case, awaiting cardiac cath results. Sarah Fowler MD [facility] # [id number]
--- NOTE | 2018-06-21 09:45 | MRI ---
Date of service: 06/21/2018 PROCEDURE: MRI BRAIN WITHOUT CONTRAST HISTORY: STROKE COMPARISON: Comparison made with prior CT scan of the brain dated 06/19/2018. TECHNIQUE: Multiplanar, multisequence MR images of the brain were obtained without intravenous contrast enhancement. FINDINGS: HEMORRHAGE: No acute parenchymal, subarachnoid nor extra-axial hemorrhage. DWI: Redemonstrated is an apparent subacute infarct changes seen involving the anterior inferior margin of the left cerebellum. In addition, there is a tiny acute infarct seen in the left lateral superior basal ganglia/coronal radiata junction. BRAIN PARENCHYMA: In addition, there is a chronic infarct in the right frontal lobe. Mild to moderate diffuse/confluent chronic periventricular white matter ischemic changes seen extending peripherally into the deep and subcortical white matter both cerebral hemispheres. Multiple chronic appearing lacunar type infarcts also seen scattered about both basal nuclei. Moderate generalized volume loss. VENTRICLES: No obstructive hydrocephalus. CRANIUM: Unremarkable. ORBITS: Changes of bilateral cataract surgery again noted PARANASAL SINUSES/MASTOIDS: Clear VASCULAR SYSTEM: Visualized major vascular flow voids at skull base patent. OTHER FINDINGS: None. IMPRESSION: Redemonstrated is a subacute infarct left anterior inferior cerebellar hemisphere. Tiny acute/subacute infarct right lateral superior basal ganglia/coronal radiata junction. Chronic right frontal lobe infarct. Mild moderate chronic white matter and basal nuclei ischemic changes. Moderate generalized volume loss.
[2018-06-21] MEDS ORDERED: Enoxaparin 30 mg Syringe SC SCH (10:00)
[2018-06-21] MEDS ORDERED: raNITIdine HCl 150 mg/10 ml Soln Cup PO SCH (10:00)
[2018-06-21] MEDS ORDERED: Dextrose 5%/0.9% NS 1,000 ML IV SCH (10:30)
--- NOTE | 2018-06-21 10:55 | CP.PCM.CON ---
History of Present Illness - History of Present Illness History of Present Illness: Nephrology Consultation Note: Assessment: Stable Uncontrolled severe HTN with emergency NSTEMI, acute/sub-acute CVA Diabetic chronic Kidney Disease (E11.22) Hypertensive Chronic Kidney Disease (I12.9) Chronic Kidney Disease (N18.1) Stage 1 with ? mg proteinuria (R80.9) likely due to DM/HTN rectal CA, vitiligo stable b/l simple and complex renal cysts mild to moderate LVH Plan No acute need for renal replacement therapy at this time. Hypertension control with meds as ordered. Maintain hemodynamics stable. Avoid hypotension. Patient on losartan. started norvasc 5 mg/d today. added hydralazine prn. will target gradual decrease in BP considering CVA Monitor Input/Output, daily weights and renal function with basic metabolic panel Check urine analysis, spot protein/creatinine, albumin/creatinine ratio Check for 25-OH vitamin D, TSH and Secondary HTN work up with plasma renin/aldosterone, plasma metanephrine and renal artery Doppler to r/o renal artery stenosis Dose meds/antibiotics for GFR >60. Glycemic control Further work up/management as per primary team Thanks for allowing me to participate in care of your patient. Will follow patient with you. Please call if any Qs Dr Jonathan Casarez Office: [phone] Chief Complaint; dizziness Reason for consult: HTN management HPI: Pt is a 77 M with hx of diabetes Mellitus (10 years), hypertension (10 years) rectal CA, vitiligo presented with complaints of dizziness and generalized weakness. found to have severe uncontrolled HTN and acute/sub-acute CVA hence renal consulted for HTN management. pt says BP usually high. Denies OTC/herbal meds or NSAIDs No obvious episodes of low BP. ROS: Cardiovascular: No chest pain. Pulmonary: feels some shortness of breath Gastrointestinal: denies abdominal pain No nausea. No vomiting. Genitourinary: No pain while urinating. Denies blood in urine. reports need to strain while urinate All other negative except as mentioned in HPI Physical Examination: General Appearance: Comfortable, in no acute respiratory distress, co-operative . Vitals reviewed and noted as below Head; Atraumatic, normocephalic ENT: no ulcers no thrush. Tongue is midline/dry. Oropharynx: no rash or ulcers. EYES: Pupils are equal, round and reactive to light accommodation. Eye muscles and extraocular movement intact. Sclera is anicteric. Neck; supple no lymphadenopathy, no thyromegaly or bruit Lungs: Normal respiratory rate/effort. Breath sounds bilateral equal and clear Heart: Normal rate. s1s2 normal. No rub or gallop. Extremities: no edema. No varicose veins Neurological: Patient is alert, awake and oriented to person, place and time. No focal deficit. Strength bilateral appropriate and equal Skin: Warm and dry. Normal turgor. No rash. Palpitation: Normal elasticity for age. vitiligo changes+ Abdomen: Abdomen is soft. Bowel sounds +. There is no abdominal tenderness, no guarding/rigidity no organomegaly. old scars+ Psych: limited insight and normal affect/mood MSK: no joint tenderness or swelling. Digits and nails normal, no deformity : kidney or bladder not palpable Labs/imaging reviewed. Past medical history, past surgical history, family history, social history, allergy reviewed and noted as below Family hx: no hx of CKD. Rest non-contributory work up: UA 2+ protein mild to moderate LVH on echo renal imaging b/l simple and complex cyst, chronic adrenal wnl Past Patient History - Past Medical History & Family History Past Medical History?: Yes - Past Social History Smoking Status: Never Smoked - CARDIAC Hx Hypertension: Yes - NEUROLOGICAL Hx Dizziness: Yes Hx Syncope: Yes - ENDOCRINE/METABOLIC Hx Endocrine Disorders: Yes Hx Diabetes Mellitus Type 2: Yes - HEMATOLOGICAL/ONCOLOGICAL Hx Blood Disorders: Yes Hx Cancer: Yes (Colorectal) Hx Chemotherapy: Yes (completed) - MUSCULOSKELETAL/RHEUMATOLOGICAL Hx Falls: Yes - GASTROINTESTINAL Hx Bowel Surgery: Yes (Colon CA removed) - PSYCHIATRIC Hx Substance Use: No - SURGICAL HISTORY Hx Surgeries: Yes Other/Comment: Colorectal surgery, hx of colostomy reversed. - ANESTHESIA Hx Anesthesia: Yes Hx Anesthesia Reactions: No Has any member of the family had a problem w/ anesthesia?: No Meds Allergies/Adverse Reactions: Allergies Allergy/AdvReac Type Severity Reaction Status Date / Time No Known Allergies Allergy Verified 06/19/18 13:16 - Medications Medications: Current Medications Amlodipine Besylate (Norvasc) 5 mg PO DAILY [facility] Aspirin (Aspirin Chewable) 81 mg PO DAILY [facility] Last Admin: 06/20/18 10:05 Dose: 81 mg Enoxaparin Sodium (Lovenox) 30 mg SC DAILY [facility] Hydralazine HCl (Apresoline) 25 mg PO Q4 PRN PRN Reason: Other Dextrose/Sodium Chloride (Dextrose 5%/0.9% Ns 1000 Ml) 1,000 mls @ 80 mls/hr IV .[id number] [facility] Losartan Potassium (Cozaar) 100 mg PO DAILY [facility] Ranitidine HCl (Zantac Soln 5ml) 150 mg PO BID [facility] Stop: 06/27/18 18:01 Rosuvastatin Calcium (Crestor) 2.5 mg PO HS [facility] Last Admin: 06/20/18 21:43 Dose: Not Given Sitagliptin Phosphate (Januvia) 100 mg PO DAILY [facility] Last Admin: 06/20/18 10:05 Dose: 100 mg Results - Vital Signs Recent Vital Signs: Last Vital Signs Temp 97.9 F 06/21/18 07:05 Pulse 72 06/21/18 08:00 Resp 20 06/21/18 07:05 BP 178/82 H 06/21/18 07:05 Pulse Ox 97 06/21/18 07:05 - Labs Result Diagrams: 06/21/18 06:54 06/21/18 06:54 Labs: Laboratory Results - last 24 hr 06/19/18 06/20/18 06/20/18 14:09 11:22 11:27 WBC RBC Hgb Hct MCV MCH MCHC RDW Plt Count MPV Neut % (Auto) 85.0 H Lymph % (Auto) 11.0 L [place] % (Auto) 4.0 Eos % (Auto) 0.0 Baso % (Auto) 0.0 Neut # (Auto) 11.7 H Lymph # (Auto) 1.5 [place] # (Auto) 0.5 Eos # (Auto) 0.0 Baso # (Auto) 0.0 Sodium Potassium Chloride Carbon Dioxide Anion Gap BUN Creatinine Est GFR ( Amer) Est GFR (Non-Af Amer) POC Glucose (mg/dL) 157 H Random Glucose Calcium Total Bilirubin AST ALT Alkaline Phosphatase Total Creatine Kinase 40 L CK-MB (Mass) 0.92 Troponin I 0.1250 H* Total Protein Albumin Globulin Albumin/Globulin Ratio Triglycerides 130 Cholesterol 212 H LDL Cholesterol Direct 124 HDL Cholesterol 74 H 06/20/18 06/21/18 06/21/18 20:25 06:54 06:54 WBC 11.9 H RBC 6.71 H Hgb 12.9 Hct 41.1 MCV 61.2 L MCH 19.2 L MCHC 31.3 L RDW 19.6 H Plt Count 250 MPV 9.1 Neut % (Auto) 78.0 H Lymph % (Auto) 13.0 L [place] % (Auto) 7.0 Eos % (Auto) 2.0 Baso % (Auto) 0.0 Neut # (Auto) 9.3 H Lymph # (Auto) 1.6 P[place] # (Auto) 0.8 Eos # (Auto) 0.2 Baso # (Auto) 0.0 Sodium 142 Potassium 4.4 Chloride 108 H Carbon Dioxide 24 Anion Gap 15 BUN 32 H Creatinine 0.9 Est GFR ( Amer) > 60 Est GFR (Non-Af Amer) > 60 POC Glucose (mg/dL) Random Glucose 103 D Calcium 9.6 Total Bilirubin 0.6 AST 29 ALT 21 Alkaline Phosphatase 83 Total Creatine Kinase 47 L CK-MB (Mass) 0.79 Troponin I 0.1050 Total Protein 7.5 Albumin 4.3 Globulin 3.2 Albumin/Globulin Ratio 1.3 Triglycerides Cholesterol LDL Cholesterol Direct HDL Cholesterol
--- NOTE | 2018-06-21 12:08 | PN ---
DATE: 06/21/2018 TIME OF EVALUATION: 07:10 a.m. NEUROLOGICAL PROBLEM: Large vessel stroke affecting left cerebellum as per CAT scan as well as consistent with his history and my examination. PHYSICAL EXAMINATION: VITAL SIGNS: Blood pressure 187/70, mean arterial pressure of 109, respiratory rate 18, pulse rate 70, irregular, temperature 98.1. The patient was transferred to stroke floor closer to the nurses station because of close observation. The patient did have hypertension and have been a little bit controlled compared to yesterday's finding. The patient is awake, alert. Speech is fluent. Moves all four extremities. Mild dysmetria on finger nose testing. ASSESSMENT AND PLAN: The patient does have significant bulbar dysfunction. The patient should have speech and swallow evaluation as well. In the meantime, continue intravenous fluids with multivitamins. The patient can get medication with office staff through mouth. The patient is scheduled to have MRI of the brain. Cardiac catheterization, which was done yesterday and official report is still pending. Deep venous thrombosis prophylaxis. Rest of the treatment as suggested before. Salvatore Lyons MD
--- NOTE | 2018-06-21 12:35 | CP.PCM.PN ---
Subjective - Date & Time of Evaluation Date of Evaluation: 06/21/18 Time of Evaluation: 12:32 - Subjective Subjective: DYSPHASIA. NO CP. ANGIOGRAM NEG. Objective - Vital Signs/Intake and Output Vital Signs (last 24 hours): Temp Pulse Resp BP Pulse Ox 97.9 F 72 20 178/82 H 97 06/21/18 07:05 06/21/18 08:00 06/21/18 07:05 06/21/18 07:05 06/21/18 07:05 Intake and Output: 06/21/18 06/21/18 06:59 18:59 Output Total 260 Balance -260 - Medications Medications: Current Medications Amlodipine Besylate (Norvasc) 5 mg PO DAILY [facility] Aspirin (Aspirin Chewable) 81 mg PO DAILY [facility] Last Admin: 06/20/18 10:05 Dose: 81 mg Enoxaparin Sodium (Lovenox) 30 mg SC DAILY [facility] Hydralazine HCl (Apresoline) 25 mg PO Q4 PRN PRN Reason: Other Dextrose/Sodium Chloride (Dextrose 5%/0.9% Ns 1000 Ml) 1,000 mls @ 80 mls/hr IV .[id number] [facility] Losartan Potassium (Cozaar) 100 mg PO DAILY [facility] Ranitidine HCl (Zantac Soln 5ml) 150 mg PO BID [facility] Stop: 06/27/18 18:01 Rosuvastatin Calcium (Crestor) 2.5 mg PO HS [facility] Last Admin: 06/20/18 21:43 Dose: Not Given Sitagliptin Phosphate (Januvia) 100 mg PO DAILY [facility] Last Admin: 06/20/18 10:05 Dose: 100 mg - Labs Labs: 06/21/18 06:54 06/21/18 06:54 PT 10.9 SECONDS (9.7-12.2) 06/19/18 14:09 INR 1.0 06/19/18 14:09 APTT 77 SECONDS (21-34) H D 06/20/18 08:23 - Constitutional Appears: No Acute Distress, Chronically Ill - Eye Exam Eye Exam: PERRL - ENT Exam ENT Exam: Mucous Membranes Moist - Respiratory Exam Respiratory Exam: Clear to Ausculation Bilateral, NORMAL BREATHING PATTERN - Cardiovascular Exam Cardiovascular Exam: REGULAR RHYTHM, +S1, +S2 - GI/Abdominal Exam GI & Abdominal Exam: Soft, Normal Bowel Sounds - Extremities Exam Extremities Exam: Full ROM, Normal Capillary Refill, Normal Inspection. absent: Joint Swelling, Pedal Edema - Neurological Exam Neurological Exam: Alert, Awake, CN II-XII Intact, Normal Gait, Oriented x3 - Psychiatric Exam Psychiatric exam: Normal Affect, Normal Mood Assessment and Plan - Assessment and Plan (Free Text) Assessment: NST ND. CAD. DM. CA RECTUM. DYSPHASIA. Plan: FOR NEURO W/U. HUMBERTO FINK. PT.
[2018-06-21] MEDS ORDERED: Enalaprilat 2.5 MG/2 ML IV ONE (18:58)
[2018-06-21] MEDS: Rosuvastatin Calcium 2.5 mg Tab PO SCH (21:28)
--- NOTE | 2018-06-21 23:44 | CP.PCM.PN ---
Subjective - Date & Time of Evaluation Date of Evaluation: 06/21/18 Time of Evaluation: 10:20 - Subjective Subjective: Patient seen and evaluated Denies chest pain and dyspnea Review Of Systems Constitutional: Positive for: Weakness. Negative for: Fever, Chills Cardiovascular: Positive for: Chest Pain, Light Headedness. Negative for: Palpitations Respiratory: Negative for: Cough, Shortness of Breath Gastrointestinal: Positive for: Nausea, Vomiting. Negative for: Abdominal Pain Neurological: Negative for: Weakness, Numbness, Headache, Dizziness Physical Exam - Physical Exam Appears: Well, Non-toxic, No Acute Distress Skin: Normal Color, Warm, Dry Head: Atraumatic, Normacephalic Neck: Normal ROM, Supple Chest: Symmetrical, No Deformity Cardiovascular: Rhythm Regular, No Murmur Respiratory: No Accessory Muscle Use Gastrointestinal/Abdominal: Soft, No Tenderness Neurological/Psych: Oriented x3, Normal Speech, Normal Cognition Objective - Vital Signs/Intake and Output Vital Signs (last 24 hours): Temp Pulse Resp BP Pulse Ox 97.3 F L 74 20 219/90 H 96 06/21/18 15:43 06/21/18 16:30 06/21/18 15:43 06/21/18 19:26 06/21/18 15:43 - Medications Medications: Current Medications Amlodipine Besylate (Norvasc) 5 mg PO DAILY [facility] Last Admin: 06/21/18 21:00 Dose: 5 mg Aspirin (Aspirin Chewable) 81 mg PO DAILY [facility] Last Admin: 06/20/18 10:05 Dose: 81 mg Enoxaparin Sodium (Lovenox) 30 mg SC DAILY [facility] Hydralazine HCl (Apresoline) 25 mg PO Q4 PRN PRN Reason: Other Last Admin: 06/21/18 20:59 Dose: 25 mg Dextrose/Sodium Chloride (Dextrose 5%/0.9% Ns 1000 Ml) 1,000 mls @ 80 mls/hr IV .[id number] [facility] Losartan Potassium (Cozaar) 100 mg PO DAILY [facility] Last Admin: 06/21/18 21:01 Dose: 100 mg Ranitidine HCl (Zantac Soln 5ml) 150 mg PO BID [facility] Stop: 06/27/18 18:01 Last Admin: 06/21/18 20:59 Dose: 150 mg Rosuvastatin Calcium (Crestor) 2.5 mg PO HS [facility] Last Admin: 06/21/18 21:28 Dose: 2.5 mg Sitagliptin Phosphate (Januvia) 100 mg PO DAILY [facility] Last Admin: 06/20/18 10:05 Dose: 100 mg - Labs Labs: 06/21/18 06:54 06/21/18 06:54 PT 10.9 SECONDS (9.7-12.2) 06/19/18 14:09 INR 1.0 06/19/18 14:09 APTT 77 SECONDS (21-34) H D 06/20/18 08:23 Assessment and Plan - Assessment and Plan (Free Text) Assessment: patient s/p cath Non obstructive coronaries Normal EF Medical management
[2018-06-22 07:53] LABS: ARTERIAL BLOOD GAS HCO3 21.2 mmol/L (21-28); ARTERIAL BLOOD GAS HEMOGLOBIN 12.9 g/dL (11.7-17.4); ARTERIAL BLOOD GAS O2 SAT 96.1 % (95-98); ARTERIAL BLOOD GAS PCO2 33 mm/Hg (35-45); ARTERIAL BLOOD GAS PH 7.38 (7.35-7.45); ARTERIAL BLOOD GAS PO2 90 mm/Hg (80-100); ARTERIAL BLOOD GAS TCO2 20.5 mmol/L (22-28)
[2018-06-22] MEDS ORDERED: Nitroglycerin 2% Ointment Foilpak UD TOP STA ×2 (08:17→08:19)
[2018-06-22 08:36] LABS: HEMOGLOBIN 13.6 g/dL (12.0-18.0); MEAN CELL VOLUME 61.4 fL (80.0-94.0); MEAN CORPUSCULAR HEMOGLOBIN 19.2 pg (27.0-31.0); MEAN CORPUSCULAR HGB CONC 31.2 g/dL (33.0-37.0); MEAN PLATELET VOLUME 9.3 fL (7.2-11.7); RBC 7.11 Mil/uL (4.40-5.90); RED CELL DISTRIBUTION WIDTH 19.6 % (11.5-14.5)
[2018-06-22 08:51] LABS: WHITE BLOOD COUNT 21.3 K/uL (4.8-10.8)
[2018-06-22 08:59] LABS: ALB/GLOB RATIO 1.3 (1.0-2.1); ALBUMIN 4.7 g/dL (3.5-5.0); ALT/SGPT 12 U/L (21-72); AST/SGOT 31 U/L (17-59); BLOOD UREA NITROGEN 24 mg/dL (9-20); CALCIUM 9.7 mg/dl (8.6-10.4); GFR NON-AFRICAN AMERICAN > 60
[2018-06-22 09:02] LABS: CK-MB 1.23 ng/mL (0.0-3.38)
[2018-06-22] MEDS ORDERED: Nitroglycerin 2% Ointment Foilpak UD TOP ONE (09:45)
[2018-06-22] MEDS ORDERED: Metoprolol 1 mg/ml Inj IVP ONE (09:45)
--- NOTE | 2018-06-22 10:06 | CT ---
Date of service: 06/22/2018 PROCEDURE: CT HEAD WITHOUT CONTRAST. HISTORY: CVA COMPARISON: 06/20/2019 TECHNIQUE: Axial computed tomography images were obtained through the head/brain without intravenous contrast. Radiation dose: Total exam DLP = 961.01 mGy-cm. This CT exam was performed using one or more of the following dose reduction techniques: Automated exposure control, adjustment of the mA and/or kV according to patient size, and/or use of iterative reconstruction technique. FINDINGS: HEMORRHAGE: No intracranial hemorrhage. BRAIN: Probable subacute left cerebellar hemispheric infarct again identified. The infarct has increased slightly in attenuation compared to the prior examination. This most likely reflects petechial hemorrhage within the infarct. There is no gross acute hemorrhage appreciated. The infarct extends into the left cerebellar tonsil. There is mass effect upon the left lateral aspect of the 4th ventricle and the spinal canal inferior to the 4th ventricle. This results in mild hydrocephalus. There is right frontal encephalomalacia consistent with old right frontal infarct. There is no other acute infarct appreciated elsewhere. There is mild patchy periventricular and deep white matter lucency consistent with microvascular white matter ischemic change. VENTRICLES: Mild hydrocephalus with dilatation of the temporal horns of the lateral ventricles, unchanged in extent. CALVARIUM: Unremarkable. PARANASAL SINUSES: Unremarkable as visualized. No significant inflammatory changes. MASTOID AIR CELLS: Unremarkable as visualized. No inflammatory changes. OTHER FINDINGS: None. IMPRESSION: Subacute left cerebellar hemispheric infarct with mass effect upon the 4th ventricle and spinal canal. There has been increase in attenuation of the cerebellar infarct consistent with petechial hemorrhage within the infarct. No gross acute hemorrhage identified. 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
--- NOTE | 2018-06-22 10:19 | RAD ---
Chest x-ray single frontal view HISTORY: Dyspnea. COMPARISON: 06/19/2018 Findings: Mild venous congestion. Diffuse increased interstitial lung markings. Right paratracheal prominence may represent prominent vasculature. Patchy increased markings in the right infrahilar region. Small nodular density at the lateral aspect of the right midlung zone. Atherosclerotic calcification at the aortic knob. Tortuous ectatic aorta. Mild cardiomegaly. Degenerative changes in the spine and shoulders. Impression: Mild venous congestion. Diffuse increased interstitial lung markings. Right paratracheal prominence may represent prominent vasculature. Patchy increased markings in the right infrahilar region. Small nodular density at the lateral aspect of the right midlung zone. Atherosclerotic calcification at the aortic knob. Tortuous ectatic aorta. Mild cardiomegaly. Degenerative changes in the spine and shoulders.
--- NOTE | 2018-06-22 10:20 | PN ---
DATE: 06/22/2018 TIME OF EVALUATION: 06:45 a.m. 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 PHYSICAL EXAMINATION: VITAL SIGNS: Blood pressure 201/99, mean arterial pressure of 133, respiratory rate 18, temperature afebrile. GENERAL: The patient seems to be tachypneic on nasal cannula oxygen. He claims that he feels very weak, nausea and vomiting. On examination, worsening left appendicular dysfunction. Left leg is externally rotated. WORKUP: MRI of the brain showed left cerebellar stroke and right subcortical stroke. His clinical examination is suggestive of worsening of his brainstem dysfunction. RECOMMENDATION: 1. Blood pressure control to keep mean arterial pressure around 100. 2. ABG to assess his oxygen status. 3. EKG to assess any cardiographic abnormalities. 4. CT of the head without contrast to assess the progression of his stroke. Due to the clinical picture, the patient should be evaluated by [facility] [facility], probably the patient may be moved to the critical care unit for further evaluation and to stabilize his cardiopulmonary and neuro status. The patient's condition is being discussed with the registered nurse. The patient will be followed while he is in the hospital. Salvatore Lyons MD
[2018-06-22 10:50] LABS: AMYLASE 83 U/L (30-110); LIPASE 21 U/L (23-300)
--- NOTE | 2018-06-22 11:02 | CP.PCM.PN ---
Subjective - Date & Time of Evaluation Date of Evaluation: 06/22/18 Time of Evaluation: 10:59 - Subjective Subjective: c/o dizziness and headache. bp 176/80. ct head done this am shows cerebeller infarct and oedema. Objective - Vital Signs/Intake and Output Vital Signs (last 24 hours): Temp Pulse Resp BP Pulse Ox 97.7 F 75 18 178/76 H 96 06/22/18 07:00 06/22/18 10:10 06/22/18 10:10 06/22/18 10:10 06/22/18 07:00 - Medications Medications: Current Medications Acetaminophen (Tylenol 325mg Tab) 650 mg PO Q6 PRN PRN Reason: Headache Amlodipine Besylate (Norvasc) 10 mg PO DAILY [facility] Aspirin (Aspirin Chewable) 81 mg PO DAILY [facility] Last Admin: 06/22/18 09:19 Dose: 81 mg Enoxaparin Sodium (Lovenox) 30 mg SC DAILY [facility] Last Admin: 06/22/18 09:20 Dose: 30 mg Hydralazine HCl (Apresoline) 25 mg PO Q4 PRN PRN Reason: Other Last Admin: 06/22/18 08:07 Dose: 25 mg Dextrose/Sodium Chloride (Dextrose 5%/0.9% Ns 1000 Ml) 1,000 mls @ 80 mls/hr IV .[id number] [facility] Last Admin: 06/22/18 00:11 Dose: 80 mls/hr Metronidazole (Flagyl) 500 mg in 100 mls @ 100 mls/hr IVPB Q8H [facility]; Protocol Labetalol HCl (Trandate) 200 mg PO BID [facility] Losartan Potassium (Cozaar) 100 mg PO DAILY [facility] Last Admin: 06/22/18 09:19 Dose: 100 mg Ondansetron HCl (Zofran Inj) 4 mg IVP Q6H PRN PRN Reason: Nausea/Vomiting Pantoprazole Sodium (Protonix Inj) 40 mg IVP Q12 [facility] Ranitidine HCl (Zantac Soln 5ml) 150 mg PO BID [facility] Stop: 06/27/18 18:01 Last Admin: 06/21/18 20:59 Dose: 150 mg Rosuvastatin Calcium (Crestor) 2.5 mg PO HS [facility] Last Admin: 06/21/18 21:28 Dose: 2.5 mg Sitagliptin Phosphate (Januvia) 100 mg PO DAILY [facility] Last Admin: 06/22/18 09:53 Dose: Not Given - Labs Labs: 06/22/18 08:28 06/22/18 08:28 PT 10.9 SECONDS (9.7-12.2) 06/19/18 14:09 INR 1.0 06/19/18 14:09 APTT 77 SECONDS (21-34) H D 06/20/18 08:23 - Constitutional Appears: No Acute Distress, Chronically Ill - Eye Exam Eye Exam: Normal appearance, PERRL - ENT Exam ENT Exam: Mucous Membranes Moist - Respiratory Exam Respiratory Exam: Clear to Ausculation Bilateral, NORMAL BREATHING PATTERN - Cardiovascular Exam Cardiovascular Exam: REGULAR RHYTHM, +S1, +S2 - GI/Abdominal Exam GI & Abdominal Exam: Soft, Normal Bowel Sounds - Extremities Exam Extremities Exam: Full ROM, Normal Capillary Refill, Normal Inspection. absent: Joint Swelling, Pedal Edema - Neurological Exam Neurological Exam: Awake, Oriented x3 - Psychiatric Exam Psychiatric exam: Normal Affect, Normal Mood Assessment and Plan - Assessment and Plan (Free Text) Assessment: cerebeller infarct. htn. dm. Plan: for neuro treatment. icu eval.
--- NOTE | 2018-06-22 11:10 | VASCLAB ---
Date of service: 06/21/2018 PROCEDURE: Carotid Duplex Exam. HISTORY: STROKE COMPARISON: None available. TECHNIQUE: Grayscale and duplex Doppler evaluation of the cervical carotid and vertebral arteries were performed. The common carotid, carotid bifurcations and cervical Internal Carotid Artery (ICA) and proximal External Carotid Artery (ECA) were evaluated. The vertebral arteries were evaluated for gross patency and flow direction. Report prepared by CHERELLE Aleman FINDINGS: RIGHT CAROTID ARTERIES: 1. Common Carotid Artery: Mimimal homogeneous plaque formation of the right common carotid artery. Maximum Peak Systolic velocity: 132 cm/sec: End-diastolic velocity 0 cm/sec. 2. Carotid Bifurcation: Maximum Peak Systolic velocity: 56 cm/sec: End-diastolic velocity 8 cm/sec. 3. Internal Carotid Artery: 3.1. Proximal Segment: Peak systolic velocity 45 cm/sec: End-diastolic velocity 9 cm/sec - % stenosis 0-15% 3.2. Middle Segment: Peak systolic velocity 57 cm/sec: End-diastolic velocity 13 cm/sec - % stenosis 0-15% 3.3. Distal Segment: Peak systolic velocity 70 cm/sec: End-diastolic velocity 12 cm/sec - % stenosis 0-15% 4. External Carotid Artery: No significant focal plaque formation. Peak systolic velocity 69 cm/sec 5. ICA/CCA Ratio: 1.1 LEFT CAROTID ARTERIES: 1. Common Carotid Artery: No significant focal plaque formation of the left common carotid artery. Maximum Peak Systolic velocity: 92 cm/sec: End-diastolic velocity 11 cm/sec. 2. Carotid Bifurcation: Maximum Peak Systolic velocity: 42 cm/sec: End-diastolic velocity 0 cm/sec. 3. Internal Carotid Artery: 3.1. Proximal Segment: Peak systolic velocity 50 cm/sec: End-diastolic velocity 10 cm/sec - % stenosis 0-15% 3.2. Middle Segment: Peak systolic velocity 60 cm/sec: End-diastolic velocity 10 cm/sec - % stenosis 0-15% 3.3. Distal Segment: Peak systolic velocity 55 cm/sec: End-diastolic velocity 10 cm/sec - % stenosis 0-15% 4. External Carotid Artery: No significant focal plaque formation. Peak systolic velocity 71 cm/sec 5. ICA/CCA Ratio: 0.9 VERTEBRAL ARTERIES: 1. Right Vertebral Artery: The right vertebral artery flow direction is antegrade. 2. Left Vertebral Artery: The left vertebral artery flow direction is antegrade. OTHER FINDINGS: 1. Right Brachial Blood pressure: 160/90 mmHg. 2. Left Brachial Blood pressure: 140/80 mmHg. IMPRESSION: RIGHT: Duplex scan does not suggest hemodynamically significant stenosis of the right extracranial carotid arteries. LEFT: Duplex scan does not suggest hemodynamically significant stenosis of the left extracranial carotid arteries.
--- NOTE | 2018-06-22 11:33 | VASCLAB ---
Date of service: 06/21/2018 PROCEDURE: Ultrasonography renal arterial evaluation HISTORY: severe HTN please eval for JUVENCIO COMPARISON: None available. TECHNIQUE: Real-time ultrasonography evaluation of the renal arteries were performed. Comparison is made to the aorta. Report prepared by MO Kolb, RVT FINDINGS: AORTA: Patent. Peak systolic velocity 153 centimeters/second RIGHT RENAL ARTERY: Renal artery to aorta ratio: 1.3 * Proximal segment: Patent. Peak systolic velocity 194 centimeters/second * Mid segment: Patent. Peak systolic velocity 187 centimeters/second * Distal segment: Patent. Peak systolic velocity 181 centimeters/second Other findings: Right Kidney measures approximately 11.49 centimeters. LEFT RENAL ARTERY: Renal artery to aorta ratio: 1.3 * Proximal segment: Patent. Peak systolic velocity 178 centimeters/second * Mid segment: Patent. Peak systolic velocity 197 centimeters/second * Distal segment: Patent. Peak systolic velocity 148 centimeters/second Other findings: Left Kidney measures approximately 11.48 centimeters. IMPRESSION: No definite hemodynamically significant stenosis involving the renal arteries as visualized. Multiple cystic structures noted in both kidneys. Clinical correlation recommended.
[2018-06-22] MEDS: metroNIDAZOLE IV 500 mg/100 ml 500 MG/100 ML BAG IVPB SCH ×2 (12:04→18:14)
--- NOTE | 2018-06-22 12:52 | CP.PCM.CON ---
<Tamra Araujojeana Ye - Last Filed: 06/22/18 19:42> History of Present Illness - History of Present Illness History of Present Illness: Critical care consult note for Dr. Bowman. Consult for hypertensive emergency. 77 year old male with PMHx of HTN, DM, and colorectal cancer, who presented to the ED s/p fall after feeling dizzy. Patient reported to have chest pain as well X1 day. Patient denies LOC, head trauma, reported falling on left side of chest. Patient was found to have a subacute infarct of left cerebellum and subacute to chronic infarct of right frontal lobe. Patient was also found to have NSTEMI and taken for cardiac cath on 06/20; cardiac cath on 06/20 showed nonobstructive coronary arteries and normal EF. On 06/22, patient became hypertensive and complained of continued dizziness and chest pain. Management of patient's hypertension was not successful while on telemetry and patient was transferred to ICU. PMHx: HTN, DM, colorectal cancer Allergies: NKDA Social Hx: Denies alcohol, tobacco, or illicit drug use. PSHx: Anterior resection with colostomy; Colostomy reversal; EGD, Port-a-cath insertion & removal Review of Systems - Constitutional Constitutional: absent: Chills, Fever - EENT Eyes: absent: Blurred Vision - Cardiovascular Cardiovascular: absent: Chest Pain, Chest Pain at Rest, Dyspnea Additional comments: pinpoint pain around intercostal 5th space on mid clavicular side - Respiratory Respiratory: absent: Cough, Dyspnea, Wheezing - Gastrointestinal Gastrointestinal: absent: Abdominal Pain - Neurological Neurological: Dizziness. absent: Numbness - Psychiatric Psychiatric: absent: Confusion, Depression - Endocrine Endocrine: absent: Deepening of Voice, Polyuria Past Patient History - Past Medical History & Family History Past Medical History?: Yes - Past Social History Smoking Status: Never Smoked - CARDIAC Hx Hypertension: Yes - NEUROLOGICAL Hx Dizziness: Yes Hx Syncope: Yes - ENDOCRINE/METABOLIC Hx Endocrine Disorders: Yes Hx Diabetes Mellitus Type 2: Yes - HEMATOLOGICAL/ONCOLOGICAL Hx Blood Disorders: Yes Hx Cancer: Yes (Colorectal) Hx Chemotherapy: Yes (completed) - MUSCULOSKELETAL/RHEUMATOLOGICAL Hx Falls: Yes - GASTROINTESTINAL Hx Bowel Surgery: Yes (Colon CA removed) - PSYCHIATRIC Hx Substance Use: No - SURGICAL HISTORY Hx Surgeries: Yes Other/Comment: Colorectal surgery, hx of colostomy reversed. - ANESTHESIA Hx Anesthesia: Yes Hx Anesthesia Reactions: No Has any member of the family had a problem w/ anesthesia?: No Meds Allergies/Adverse Reactions: Allergies Allergy/AdvReac Type Severity Reaction Status Date / Time No Known Allergies Allergy Verified 06/19/18 13:16 - Medications Medications: Current Medications Acetaminophen (Tylenol 325mg Tab) 650 mg PO Q6 PRN PRN Reason: Headache Amlodipine Besylate (Norvasc) 10 mg PO DAILY [facility] Last Admin: 06/22/18 12:04 Dose: 10 mg Aspirin (Aspirin Chewable) 81 mg PO DAILY [facility] Last Admin: 06/22/18 09:19 Dose: 81 mg Enoxaparin Sodium (Lovenox) 30 mg SC DAILY [facility] Last Admin: 06/22/18 09:20 Dose: 30 mg Famotidine (Pepcid) 20 mg PO BID [facility] Last Admin: 06/22/18 12:04 Dose: 20 mg Hydralazine HCl (Apresoline) 25 mg PO Q4 PRN PRN Reason: Other Last Admin: 06/22/18 08:07 Dose: 25 mg Dextrose/Sodium Chloride (Dextrose 5%/0.9% Ns 1000 Ml) 1,000 mls @ 80 mls/hr IV .[id number] [facility] Last Admin: 06/22/18 00:11 Dose: 80 mls/hr Metronidazole (Flagyl) 500 mg in 100 mls @ 100 mls/hr IVPB Q8H [facility]; Protocol Last Admin: 06/22/18 12:04 Dose: 100 mls/hr Labetalol HCl (Trandate) 200 mg PO BID [facility] Last Admin: 06/22/18 12:04 Dose: 200 mg Losartan Potassium (Cozaar) 100 mg PO DAILY [facility] Last Admin: 06/22/18 09:19 Dose: 100 mg Ondansetron HCl (Zofran Inj) 4 mg IVP Q6H PRN PRN Reason: Nausea/Vomiting Rosuvastatin Calcium (Crestor) 2.5 mg PO HS [facility] Last Admin: 06/21/18 21:28 Dose: 2.5 mg Sitagliptin Phosphate (Januvia) 100 mg PO DAILY [facility] Last Admin: 06/22/18 12:03 Dose: 100 mg Physical Exam - Constitutional Appears: Well, Non-toxic, No Acute Distress - Head Exam Head Exam: NORMAL INSPECTION - Eye Exam Eye Exam: EOMI, Normal appearance Pupil Exam: NORMAL ACCOMODATION - ENT Exam ENT Exam: Mucous Membranes Moist - Respiratory Exam Respiratory Exam: Clear to Auscultation Bilateral, NORMAL BREATHING PATTERN. absent: Rales, Rhonchi, Wheezes - Cardiovascular Exam Cardiovascular Exam: +S1, +S2. absent: Systolic Murmur - GI/Abdominal Exam GI & Abdominal Exam: Normal Bowel Sounds, Soft. absent: Distended, Firm, Guarding - Extremities Exam Extremities exam: Positive for: full ROM, normal inspection. Negative for: calf tenderness, pedal edema - Back Exam Back exam: absent: CVA tenderness (L), CVA tenderness (R) - Neurological Exam Neurological exam: Alert, Oriented x3 - Psychiatric Exam Psychiatric exam: Normal Affect, Normal Mood - Skin Skin Exam: Warm Additional comments: hypopigmentation through face, consistent with vitiligo Results - Vital Signs Recent Vital Signs: Last Vital Signs Temp 97.7 F 06/22/18 07:00 Pulse 75 06/22/18 10:10 Resp 18 06/22/18 10:10 BP 178/76 H 06/22/18 10:10 Pulse Ox 96 06/22/18 07:00 - Labs Result Diagrams: 06/22/18 08:28 06/22/18 08:28 Labs: Laboratory Results - last 24 hr 06/21/18 06/21/18 06/22/18 06:41 11:06 07:14 WBC RBC Hgb Hct MCV MCH MCHC RDW Plt Count MPV Puncture Site pCO2 pO2 HCO3 ABG pH ABG Total CO2 ABG O2 Saturation ABG Base Excess ABG Hemoglobin ABG Carboxyhemoglobin POC ABG HHb (Measured) ABG Methemoglobin Akira Test A-a O2 Difference Respiratory Index Hgb O2 Saturation Liter Flow FiO2 Sodium Potassium Chloride Carbon Dioxide Anion Gap BUN Creatinine Est GFR ( Amer) Est GFR (Non-Af Amer) POC Glucose (mg/dL) 107 134 H Random Glucose Calcium Total Bilirubin AST ALT Alkaline Phosphatase Total Creatine Kinase CK-MB (Mass) Troponin I Total Protein Albumin Globulin Albumin/Globulin Ratio Amylase Lipase 25-OH Vitamin D Total 29.7 L TSH 3rd Generation 06/22/18 06/22/18 06/22/18 07:14 07:49 08:28 WBC 21.3 H D RBC 7.11 H Hgb 13.6 Hct 43.7 MCV 61.4 L MCH 19.2 L MCHC 31.2 L RDW 19.6 H Plt Count 288 MPV 9.3 Puncture Site Rba pCO2 33 L pO2 90 HCO3 21.2 ABG pH 7.38 ABG Total CO2 20.5 L ABG O2 Saturation 96.1 ABG Base Excess -4.8 L ABG Hemoglobin 12.9 ABG Carboxyhemoglobin 0.2 L POC ABG HHb (Measured) 3.9 ABG Methemoglobin 0.0 Akira Test Na A-a O2 Difference 68.0 Respiratory Index 0.8 Hgb O2 Saturation 95.9 Liter Flow 2.0 FiO2 28.0 Sodium Potassium Chloride Carbon Dioxide Anion Gap BUN Creatinine Est GFR ( Amer) Est GFR (Non-Af Amer) POC Glucose (mg/dL) Random Glucose Calcium Total Bilirubin AST ALT Alkaline Phosphatase Total Creatine Kinase CK-MB (Mass) Troponin I Total Protein Albumin Globulin Albumin/Globulin Ratio Amylase Lipase 25-OH Vitamin D Total TSH 3rd Generation 0.62 06/22/18 08:28 WBC RBC Hgb Hct MCV MCH MCHC RDW Plt Count MPV Puncture Site pCO2 pO2 HCO3 ABG pH ABG Total CO2 ABG O2 Saturation ABG Base Excess ABG Hemoglobin ABG Carboxyhemoglobin POC ABG HHb (Measured) ABG Methemoglobin Akira Test A-a O2 Difference Respiratory Index Hgb O2 Saturation Liter Flow FiO2 Sodium 142 Potassium 4.2 Chloride 108 H Carbon Dioxide 20 L Anion Gap 18 BUN 24 H Creatinine 0.8 Est GFR ( Amer) > 60 Est GFR (Non-Af Amer) > 60 POC Glucose (mg/dL) Random Glucose 175 H D Calcium 9.7 Total Bilirubin 0.9 AST 31 ALT 12 L D Alkaline Phosphatase 100 Total Creatine Kinase 39 L CK-MB (Mass) 1.23 Troponin I 0.0490 Total Protein 8.3 Albumin 4.7 Globulin 3.7 Albumin/Globulin Ratio 1.3 Amylase 83 Lipase 21 L 25-OH Vitamin D Total TSH 3rd Generation Assessment & Plan - Assessment and Plan (Free Text) Assessment: 77 year old male with PMHx of HTN, DM, and colorectal cancer, who was admitted to telemetry on 06/19 for subacute CVA and NSTEMI (s/p cath RCA 50-55%, no stent required) . Patient was transferred to ICU following HTN emergency, now petechial hemorrhage of left cerebellum 1. Hypertensive Emergency 2. Subacute infarct of left cerebellum 3. Petechial hemorrhage of left cerebellum 4. NSTEMI Plan: Neuro - AAOx3 - CT 06/19: subacute infarct in left cerebellum; subacute to chronic infarct in right frontal lobe - Repeat CT 06/22: subacute left cerebellar hemispheric infarct with mass effect upon 4th ventricle and spinal canal; increase attentuation of cerebellar infarct consistent with petechial hemorrhage within infarct; no gross acute hemorrhage identified; mild hydrocephalus - Prevent HTN above 140 systolic - hold anticoagulation - F/u neuro recs - serum osmolality 322 - manitol 100 mg X 1, repeat osmolality in AM - F/u neurosurgery recs - no surgical intervention at this time - neurochecks Q1H, seizure, aspiration precautions Cardiac - Hypertension emergency, resolved - start Norvasc 10mg tomorrow - continue Cozaar 100mg daily, Hydralazine 25mg Q4 PRN - start Labetalol 100mg BID - NSTEMI s/p cardiac cath on 06/20 - EF normal, nonobstructive coronary arteries - Troponin (06/22) neg; positive on admission (0.137, 0.122, 0.125) - continue Crestor 2.5mg PO - hold ASA 81mg, Lovenox 30mg - f/u cardiac recs-- Dr. Sudarshan Eastman - ABG 7.38/33/90/21.2 - 98% on NC - CXR 06/22: mild venous congestion, diffuse increased interstitial marking; patchy increased marking in right infrahilar region - Ribs xray: no acute fracture GI - Dysphagia diet - Hx of colorectal cancer - CEA 1.5 - CA 19-9 6.8 - Zofran PRN for nausea - f/u GI recs-- Dr. Pollack Endo - Hx of Diabetes - Accuchecks - ISS ACHS - continue Januvia 100mg PO Renal - BUN/Cr 24/0.8 - continue to monitor - f/u nephro recs-- Dr. Casarez ID - Leukocytosis - WBC 21.3 today, up from 11.9 - Afebrile - Flagyl per GI - continue to monitor PPx - Pain ppx-- Tylenol PRN - DVT ppx-- SCDs, Lovenox on hold - GI ppx-- pepcid <Elia Bowman M - Last Filed: 06/23/18 08:16> Meds - Medications Medications: Current Medications Acetaminophen (Tylenol 325mg Tab) 650 mg PO Q6 PRN PRN Reason: Headache Amlodipine Besylate (Norvasc) 10 mg PO DAILY [facility] Aspirin (Aspirin Chewable) 81 mg PO DAILY [facility] Last Admin: 06/22/18 09:19 Dose: 81 mg Enoxaparin Sodium (Lovenox) 30 mg SC DAILY [facility] Last Admin: 06/22/18 09:20 Dose: 30 mg Famotidine (Pepcid) 20 mg PO BID [facility] Last Admin: 06/22/18 17:56 Dose: 20 mg Hydralazine HCl (Apresoline) 25 mg PO Q4 PRN PRN Reason: SEE DOSE INSTRUCTIONS Last Admin: 06/23/18 05:32 Dose: 25 mg Metronidazole (Flagyl) 500 mg in 100 mls @ 100 mls/hr IVPB Q8H [facility]; Protocol Last Admin: 06/23/18 02:34 Dose: 100 mls/hr Sodium Chloride (Sodium Chloride 0.9%) 1,000 mls @ 80 mls/hr IV .[id number] [facility] Last Admin: 06/23/18 05:13 Dose: 80 mls/hr Insulin Aspart (Novolog) 0 unit SC ACHS [facility]; Protocol Last Admin: 06/23/18 08:08 Dose: 2 units Labetalol HCl (Trandate) 100 mg PO BID [facility] Last Admin: 06/22/18 18:14 Dose: 100 mg Losartan Potassium (Cozaar) 100 mg PO DAILY [facility] Ondansetron HCl (Zofran Inj) 4 mg IVP Q6H PRN PRN Reason: Nausea/Vomiting Rosuvastatin Calcium (Crestor) 2.5 mg PO HS [facility] Last Admin: 06/22/18 22:32 Dose: 2.5 mg Sitagliptin Phosphate (Januvia) 100 mg PO DAILY [facility] Last Admin: 06/22/18 12:03 Dose: 100 mg Results - Vital Signs Recent Vital Signs: Last Vital Signs Temp 97.7 F 06/23/18 04:00 Pulse 74 06/23/18 08:00 Resp 12 06/23/18 08:00 BP 174/69 H 06/23/18 07:55 Pulse Ox 98 06/23/18 08:00 - Labs Result Diagrams: 06/23/18 06:00 06/23/18 06:00 Labs: Laboratory Results - last 24 hr 06/22/18 06/22/18 06/22/18 08:28 08:28 16:11 WBC 21.3 H D RBC 7.11 H Hgb 13.6 Hct 43.7 MCV 61.4 L MCH 19.2 L MCHC 31.2 L RDW 19.6 H Plt Count 288 MPV 9.3 Sodium 142 Potassium 4.2 Chloride 108 H Carbon Dioxide 20 L Anion Gap 18 BUN 24 H Creatinine 0.8 Est GFR ( Amer) > 60 Est GFR (Non-Af Amer) > 60 POC Glucose (mg/dL) 255 H Random Glucose 175 H D Serum Osmolality Calcium 9.7 Phosphorus Magnesium Total Bilirubin 0.9 AST 31 ALT 12 L D Alkaline Phosphatase 100 Total Creatine Kinase 39 L CK-MB (Mass) 1.23 Troponin I 0.0490 Total Protein 8.3 Albumin 4.7 Globulin 3.7 Albumin/Globulin Ratio 1.3 Amylase 83 Lipase 21 L 06/22/18 06/22/18 06/23/18 16:15 21:07 06:00 WBC 13.4 H RBC 6.04 H Hgb 11.5 L D Hct 37.3 MCV 61.8 L MCH 19.1 L MCHC 30.9 L RDW 19.5 H Plt Count 235 MPV 9.6 Sodium Potassium Chloride Carbon Dioxide Anion Gap BUN Creatinine Est GFR ( Amer) Est GFR (Non-Af Amer) POC Glucose (mg/dL) 217 H Random Glucose Serum Osmolality 322 H Calcium Phosphorus Magnesium Total Bilirubin AST ALT Alkaline Phosphatase Total Creatine Kinase CK-MB (Mass) Troponin I Total Protein Albumin Globulin Albumin/Globulin Ratio Amylase Lipase 06/23/18 06/23/18 06:00 06:00 WBC RBC Hgb Hct MCV MCH MCHC RDW Plt Count MPV Sodium 140 Potassium 3.8 Chloride 109 H Carbon Dioxide 23 Anion Gap 12 BUN 28 H Creatinine 0.9 Est GFR ( Amer) > 60 Est GFR (Non-Af Amer) > 60 POC Glucose (mg/dL) Random Glucose 174 H Serum Osmolality 323 H Calcium 9.2 Phosphorus 3.0 Magnesium 2.2 Total Bilirubin 0.6 AST 26 ALT 14 L Alkaline Phosphatase 93 Total Creatine Kinase CK-MB (Mass) Troponin I Total Protein 6.6 Albumin 3.9 Globulin 2.8 Albumin/Globulin Ratio 1.4 Amylase Lipase Attending/Attestation - Attestation I have personally seen and examined this patient.: Yes I have fully participated in the care of the patient.: Yes I have reviewed all pertinent clinical information: Yes Notes (Text): Today: Wednesday, June 22, 2018 The Patient was seen and examined at the bedside, Medical records reviewed, and management issues were discussed and formulated with the house staff. I have reviewed all the relevant clinical, laboratory, hemodynamic, radiographic data and medications Events reviewed Pain issues, skin care, head of the bed elevation, glycemic control were addressed. Agree with above resident's assessment and treatment plans of care as transcribed in Dr. Araujo's note.
[2018-06-22] MEDS ORDERED: Sodium Chloride 0.9% 500 ML IV ONE (13:42)
--- NOTE | 2018-06-22 14:18 | CP.PCM.PN ---
Subjective - Date & Time of Evaluation Date of Evaluation: 06/22/18 Time of Evaluation: 14:15 - Subjective Subjective: Nephrology Consultation Note: Assessment: critical Uncontrolled severe HTN with emergency NSTEMI, acute/sub-acute CVA Diabetic chronic Kidney Disease (E11.22) Hypertensive Chronic Kidney Disease (I12.9) Chronic Kidney Disease (N18.1) Stage 1 with ? mg proteinuria (R80.9) likely due to DM/HTN rectal CA, vitiligo stable b/l simple and complex renal cysts mild to moderate LVH Plan No acute need for renal replacement therapy at this time. Hypertension control with meds as ordered. Maintain hemodynamics stable. Avoid hypotension. Patient on losartan. Increased norvasc 10 mg/d. labetalol 100 mg bid. will target gradual decrease in BP considering CVA Monitor Input/Output, daily weights and renal function with basic metabolic panel Neuro and critical care following. pt for transfer to ICU today cxr ordered Check urine analysis, spot protein/creatinine, albumin/creatinine ratio Check for 25-OH vitamin D, TSH and Secondary HTN work up with plasma renin/aldosterone, plasma metanephrine and renal artery Doppler to r/o renal artery stenosis Dose meds/antibiotics for GFR >60. Glycemic control Further work up/management as per primary team Thanks for allowing me to participate in care of your patient. Will follow pat ient with you. Please call if any Qs. had d/w team Dr Jonathan Casarez Office: [phone] Chief Complaint; dizziness Reason for consult: HTN management HPI: Pt is a 77 M with hx of diabetes Mellitus (10 years), hypertension (10 years) rectal CA, vitiligo presented with complaints of dizziness and generalized weakness. found to have severe uncontrolled HTN and acute/sub-acute CVA hence renal consulted for HTN management. pt says BP usually high. Denies OTC/herbal meds or NSAIDs No obvious episodes of low BP. ROS: Cardiovascular: No chest pain. Pulmonary: feels shortness of breath Gastrointestinal: has epigastric abdominal pain No nausea. No vomiting. Genitourinary: No pain while urinating. Denies blood in urine. reports need to strain while urinate All other negative except as mentioned in HPI Physical Examination: General Appearance: Comfortable, in no acute respiratory distress, co-operative . Vitals reviewed and noted as below Head; Atraumatic, normocephalic ENT: no ulcers no thrush. Tongue is midline/dry. Oropharynx: no rash or ulcers. EYES: Pupils are equal, round and reactive to light accommodation. Eye muscles and extraocular movement intact. Sclera is anicteric. Neck; supple no lymphadenopathy, no thyromegaly or bruit Lungs: Normal respiratory rate/effort. Breath sounds bilateral somewhat reduced at bases Heart: Normal rate. s1s2 normal. No rub or gallop. Extremities: no edema. No varicose veins Neurological: Patient is alert, awake and oriented to person, place and time. Strength bilateral appropriate and equal Skin: Warm and dry. Normal turgor. No rash. Palpitation: Normal elasticity for age. vitiligo changes+ Abdomen: Abdomen is soft. Bowel sounds +. There is no abdominal tenderness, no guarding/rigidity no organomegaly. old scars+ Psych: limited insight and normal affect/mood MSK: no joint tenderness or swelling. Digits and nails normal, no deformity : kidney or bladder not palpable Labs/imaging reviewed. Past medical history, past surgical history, family history, social history, allergy reviewed and noted as below Family hx: no hx of CKD. Rest non-contributory work up: UA 2+ protein mild to moderate LVH on echo renal imaging b/l simple and complex cyst, chronic adrenal wnl Objective - Vital Signs/Intake and Output Vital Signs (last 24 hours): Temp Pulse Resp BP Pulse Ox 97.7 F 69 14 106/33 L 97 06/22/18 07:00 06/22/18 13:31 06/22/18 13:31 06/22/18 13:31 06/22/18 13:31 - Medications Medications: Current Medications Acetaminophen (Tylenol 325mg Tab) 650 mg PO Q6 PRN PRN Reason: Headache Amlodipine Besylate (Norvasc) 10 mg PO DAILY [facility] Aspirin (Aspirin Chewable) 81 mg PO DAILY [facility] Last Admin: 06/22/18 09:19 Dose: 81 mg Enoxaparin Sodium (Lovenox) 30 mg SC DAILY [facility] Last Admin: 06/22/18 09:20 Dose: 30 mg Famotidine (Pepcid) 20 mg PO BID [facility] Last Admin: 06/22/18 12:04 Dose: 20 mg Hydralazine HCl (Apresoline) 25 mg PO Q4 PRN PRN Reason: Other Last Admin: 06/22/18 08:07 Dose: 25 mg Dextrose/Sodium Chloride (Dextrose 5%/0.9% Ns 1000 Ml) 1,000 mls @ 80 mls/hr IV .[id number] [facility] Last Admin: 06/22/18 00:11 Dose: 80 mls/hr Metronidazole (Flagyl) 500 mg in 100 mls @ 100 mls/hr IVPB Q8H [facility]; Protocol Last Admin: 06/22/18 12:04 Dose: 100 mls/hr Sodium Chloride (Sodium Chloride 0.9%) 500 mls @ 500 mls/hr IV .Q1H ONE Stop: 06/22/18 14:41 Last Admin: 06/22/18 14:07 Dose: 500 mls/hr Labetalol HCl (Trandate) 100 mg PO BID [facility] Losartan Potassium (Cozaar) 100 mg PO DAILY [facility] Last Admin: 06/22/18 09:19 Dose: 100 mg Ondansetron HCl (Zofran Inj) 4 mg IVP Q6H PRN PRN Reason: Nausea/Vomiting Rosuvastatin Calcium (Crestor) 2.5 mg PO HS [facility] Last Admin: 06/21/18 21:28 Dose: 2.5 mg Sitagliptin Phosphate (Januvia) 100 mg PO DAILY [facility] Last Admin: 06/22/18 12:03 Dose: 100 mg - Labs Labs: 06/22/18 08:28 06/22/18 08:28 PT 10.9 SECONDS (9.7-12.2) 06/19/18 14:09 INR 1.0 06/19/18 14:09 APTT 77 SECONDS (21-34) H D 06/20/18 08:23
--- NOTE | 2018-06-22 14:58 | PN ---
DATE: 06/22/2018 LOCATION: 665, bed A. SUBJECTIVE: A 77-year-old male seen and examined in rounds with reported elevated blood pressure followed by episode of nausea and vomiting of gastric contents, but no reported active bleeding seen by the digital imager during such episodes early this morning. The entire chart is reviewed including the most recent lab and radiology study results and today's white blood cells reported to be 21.3 with normal hemoglobin and hematocrit, but low indices, abnormal ABGs, CO2 content of 20, BUN 24 with normal creatinine. Blood glucose level 175 with normal liver function test, but low ALT to 12. Most recently done head CAT scan, official report is still pending today, but his MRI of the brain report is seen. PHYSICAL EXAMINATION: GENERAL: A 77-year-old male. VITAL SIGNS: Afebrile despite his leukocytosis with pulse of 82, respiratory rate 20-22,and blood pressure 180/86. HEENT: Showed pale dry oral mucous membrane. Nonicteric sclerae. LUNGS: Few scattered crepitation. Decreased air entry at bases. HEART: Positive S1 and S2. ABDOMEN: Soft with mild generalized tenderness. No mass or organomegaly. No rebound tenderness or guarding. EXTREMITIES: Without significant clubbing, cyanosis or edema. NEUROLOGICAL: No reported new neurological deficit, sensory or motor. On the record, the results of the cardiac cath is seen. IMPRESSION: 1. Re-exacerbation of peptic ulcer disease with episodes of nausea and vomiting. 2. Poorly controlled diabetes mellitus, diabetic gastroparesis. 3. Poorly controlled hypertension. 4. Leukocytosis of unclear etiology. 5. Coagulopathy, drug-induced. 6. 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 SUGGESTIONS: 1. Agree with your plan. 2. Serum lipase and amylase level. 3. Reglan IV. 4. Proton pump inhibitors IV. 5. Blood culture x2. 6. Endoscopic evaluation of the GI tract if there is no significant response. 7. Further recommendation to follow. Sarah Fowler MD
--- NOTE | 2018-06-22 15:25 | RAD ---
Date of service: 06/22/2018 PROCEDURE: Radiographs of the Chest and Left Ribs. HISTORY: s/p fall, rib pain COMPARISON: None available. TECHNIQUE: Frontal radiograph of the chest and multiple oblique radiographs of the left ribs were obtained. FINDINGS: LEFT RIBS: No fracture or focal lesion visualized. LUNGS: The lungs are well inflated and clear. PLEURA: No pneumothorax or pleural fluid. CARDIOVASCULAR: Normal cardiac size. No pulmonary vascular congestion. There are aortic atherosclerotic calcification present OTHER FINDINGS: None. IMPRESSION: No acute rib fracture. Clear lungs.
[2018-06-22] MEDS: Sodium Chloride 0.9% 1,000 ML IV SCH (15:55)
[2018-06-22] MEDS ORDERED: (Novolog) Insulin Aspart, Recombinant 100 u/ml 10 ml vial SC ONE (17:36)
--- NOTE | 2018-06-22 18:35 | CP.PCM.PN ---
Subjective - Date & Time of Evaluation Date of Evaluation: 06/22/18 Time of Evaluation: 18:31 - Subjective Subjective: called because ct from today read as patecheal hemorrhage within subacute cerebellar infart PT is at lease 3 days s/p l cerebellar infarct no change in size or mass effect over 3 days there is some pethical hemorrhage but nothing that is a discrete hematoma need to control BP but nothing neruosurgical at this point. Objective - Vital Signs/Intake and Output Vital Signs (last 24 hours): Temp Pulse Resp BP Pulse Ox 97.9 F 68 14 133/52 L 98 06/22/18 16:00 06/22/18 17:00 06/22/18 17:00 06/22/18 16:18 06/22/18 17:00 Intake and Output: 06/22/18 06/22/18 06:59 18:59 Intake Total 580 Output Total 300 Balance 280 - Medications Medications: Current Medications Acetaminophen (Tylenol 325mg Tab) 650 mg PO Q6 PRN PRN Reason: Headache Amlodipine Besylate (Norvasc) [address] [facility] Aspirin (Aspirin Chewable) [address] [facility] Last Admin: 06/22/18 09:19 Dose: 81 mg Enoxaparin Sodium (Lovenox) [address] [facility] Last Admin: 06/22/18 09:20 Dose: 30 mg Famotidine (Pepcid) [address] [facility] Last Admin: 06/22/18 17:56 Dose: 20 mg Hydralazine HCl (Apresoline) 25 mg PO Q4 PRN PRN Reason: SEE DOSE INSTRUCTIONS Metronidazole (Flagyl) 500 mg in 100 mls @ 100 mls/hr IVPB Q8H [facility]; Protocol Last Admin: 06/22/18 18:14 Dose: 100 mls/hr Sodium Chloride (Sodium Chloride 0.9%) 1,000 mls @ 80 mls/hr IV .[id number] [facility] Last Admin: 06/22/18 15:55 Dose: 80 mls/hr Mannitol (Mannitol) 500 mls @ 500 mls/hr IV .Q1H ONE Stop: 06/22/18 19:11 Insulin Aspart (Novolog) [address] [facility]; Protocol Labetalol HCl (Trandate) [address] [facility] Last Admin: 06/22/18 18:14 Dose: 100 mg Losartan Potassium (Cozaar) [address] [facility] Ondansetron HCl (Zofran Inj) 4 mg IVP Q6H PRN PRN Reason: Nausea/Vomiting Rosuvastatin Calcium (Crestor) 2.[address] [facility] Last Admin: 06/21/18 21:28 Dose: 2.5 mg Sitagliptin Phosphate (Januvia) [address] [facility] Last Admin: 06/22/18 12:03 Dose: 100 mg - Labs Labs: 06/22/18 08:28 06/22/18 08:28 PT 10.9 SECONDS (9.7-12.2) 06/19/18 14:09 INR 1.0 06/19/18 14:09 APTT 77 SECONDS (21-34) H D 06/20/18 08:23
--- NOTE | 2018-06-22 21:51 | CP.PCM.PN ---
Subjective - Date & Time of Evaluation Date of Evaluation: 06/22/18 Time of Evaluation: 18:30 - Subjective Subjective: Patient seen and evaluated in ICU Patient transferred to ICU for hypertensive emergency and peticheal hemorrhage around prior stroke Patient with good BP control Denies headache Review of Systems - Constitutional Constitutional: absent: Chills, Fever - EENT Eyes: absent: Blurred Vision - Cardiovascular Cardiovascular: absent: Chest Pain, Chest Pain at Rest, Dyspnea Additional comments: pinpoint pain around intercostal 5th space on mid clavicular side - Respiratory Respiratory: absent: Cough, Dyspnea, Wheezing - Gastrointestinal Gastrointestinal: absent: Abdominal Pain - Neurological Neurological: Dizziness. absent: Numbness - Psychiatric Psychiatric: absent: Confusion, Depression - Endocrine Endocrine: absent: Deepening of Voice, Polyuria Physical Exam - Constitutional Appears: Well, Non-toxic, No Acute Distress - Head Exam Head Exam: NORMAL INSPECTION - Eye Exam Eye Exam: EOMI, Normal appearance Pupil Exam: NORMAL ACCOMODATION - ENT Exam ENT Exam: Mucous Membranes Moist - Respiratory Exam Respiratory Exam: Clear to Auscultation Bilateral, NORMAL BREATHING PATTERN. absent: Rales, Rhonchi, Wheezes - Cardiovascular Exam Cardiovascular Exam: +S1, +S2. absent: Systolic Murmur - GI/Abdominal Exam GI & Abdominal Exam: Normal Bowel Sounds, Soft. absent: Distended, Firm, Guarding - Extremities Exam Extremities exam: Positive for: full ROM, normal inspection. Negative for: calf tenderness, pedal edema - Back Exam Back exam: absent: CVA tenderness (L), CVA tenderness (R) - Neurological Exam Neurological exam: Alert, Oriented x3 - Psychiatric Exam Psychiatric exam: Normal Affect, Normal Mood - Skin Skin Exam: Warm Additional comments: hypopigmentation through face, consistent with vitiligo Results - Vital Signs Recent Vital Signs: Last Vital Signs Temp 97.7 F 06/22/18 07:00 Pulse 75 06/22/18 10:10 Resp 18 06/22/18 10:10 BP 178/76 H 06/22/18 10:10 Pulse Ox 96 06/22/18 07:00 - Labs Result Diagrams: 06/22/18 08:28 06/22/18 08:28 Labs: Laboratory Results - last 24 hr 06/21/18 06/21/18 06/22/18 06:41 11:06 07:14 WBC RBC Hgb Hct MCV MCH MCHC RDW Plt Count MPV Puncture Site pCO2 pO2 HCO3 ABG pH ABG Total CO2 ABG O2 Saturation ABG Base Excess ABG Hemoglobin ABG Carboxyhemoglobin POC ABG HHb (Measured) ABG Methemoglobin Akira Test A-a O2 Difference Respiratory Index Hgb O2 Saturation Liter Flow FiO2 Sodium Potassium Chloride Carbon Dioxide Anion Gap BUN Creatinine Est GFR ( Amer) Est GFR (Non-Af Amer) POC Glucose (mg/dL) 107 134 H Random Glucose Calcium Total Bilirubin AST ALT Alkaline Phosphatase Total Creatine Kinase CK-MB (Mass) Troponin I Total Protein Albumin Globulin Albumin/Globulin Ratio Amylase Lipase 25-OH Vitamin D Total 29.7 L TSH 3rd Generation 06/22/18 06/22/18 06/22/18 07:14 07:49 08:28 WBC 21.3 H D RBC 7.11 H Hgb 13.6 Hct 43.7 MCV 61.4 L MCH 19.2 L MCHC 31.2 L RDW 19.6 H Plt Count 288 MPV 9.3 Puncture Site Rba pCO2 33 L pO2 90 HCO3 21.2 ABG pH 7.38 ABG Total CO2 20.5 L ABG O2 Saturation 96.1 ABG Base Excess -4.8 L ABG Hemoglobin 12.9 ABG Carboxyhemoglobin 0.2 L POC ABG HHb (Measured) 3.9 ABG Methemoglobin 0.0 Akira Test Na A-a O2 Difference 68.0 Respiratory Index 0.8 Hgb O2 Saturation 95.9 Liter Flow 2.0 FiO2 28.0 Sodium Potassium Chloride Carbon Dioxide Anion Gap BUN Creatinine Est GFR ( Amer) Est GFR (Non-Af Amer) POC Glucose (mg/dL) Random Glucose Calcium Total Bilirubin AST ALT Alkaline Phosphatase Total Creatine Kinase CK-MB (Mass) Troponin I Total Protein Albumin Globulin Albumin/Globulin Ratio Amylase Lipase 25-OH Vitamin D Total TSH 3rd Generation 0.62 06/22/18 08:28 WBC RBC Hgb Hct MCV MCH MCHC RDW Plt Count MPV Puncture Site pCO2 pO2 HCO3 ABG pH ABG Total CO2 ABG O2 Saturation ABG Base Excess ABG Hemoglobin ABG Carboxyhemoglobin POC ABG HHb (Measured) ABG Methemoglobin Akira Test A-a O2 Difference Respiratory Index Hgb O2 Saturation Liter Flow FiO2 Sodium 142 Potassium 4.2 Chloride 108 H Carbon Dioxide 20 L Anion Gap 18 BUN 24 H Creatinine 0.8 Est GFR ( Amer) > 60 Est GFR (Non-Af Amer) > 60 POC Glucose (mg/dL) Random Glucose 175 H D Calcium 9.7 Total Bilirubin 0.9 AST 31 ALT 12 L D Alkaline Phosphatase 100 Total Creatine Kinase 39 L CK-MB (Mass) 1.23 Troponin I 0.0490 Total Protein 8.3 Albumin 4.7 Globulin 3.7 Albumin/Globulin Ratio 1.3 Amylase 83 Lipase 21 L 25-OH Vitamin D Total TSH 3rd Generation Assessment & Plan - Assessment and Plan (Free Text) Assessment: 77 year old male with PMHx of HTN, DM, and colorectal cancer, who was admitted to telemetry on 06/19 for subacute CVA and NSTEMI (s/p cath RCA 50-55%, no stent required) . Patient was transferred to ICU following HTN emergency, now petechial hemorrhage of left cerebellum 1. Hypertensive Emergency 2. Subacute infarct of left cerebellum 3. Petechial hemorrhage of left cerebellum 4. NSTEMI Plan: Neuro - AAOx3 - CT 06/19: subacute infarct in left cerebellum; subacute to chronic infarct in right frontal lobe - Repeat CT 06/22: subacute left cerebellar hemispheric infarct with mass effect upon 4th ventricle and spinal canal; increase attentuation of cerebellar infarct consistent with petechial hemorrhage within infarct; no gross acute hemorrhage identified; mild hydrocephalus - Prevent HTN above 140 systolic - hold anticoagulation - F/u neuro recs - serum osmolality 322 - manitol 100 mg X 1, repeat osmolality in AM - F/u neurosurgery recs - no surgical intervention at this time - neurochecks Q1H, seizure, aspiration precautions Cardiac - Hypertension emergency, resolved - start Norvasc 10mg tomorrow - continue Cozaar 100mg daily, Hydralazine 25mg Q4 PRN - start Labetalol 100mg BID - NSTEMI s/p cardiac cath on 06/20 - EF normal, nonobstructive coronary arteries - Troponin (06/22) neg; positive on admission (0.137, 0.122, 0.125) - continue Crestor 2.5mg PO - hold ASA 81mg, Lovenox 30mg - f/u cardiac recs-- Dr. Sudarshan Eastman - ABG 7.38/33/90/21.2 - 98% on NC - CXR 06/22: mild venous congestion, diffuse increased interstitial marking; patchy increased marking in right infrahilar region - Ribs xray: no acute fracture GI - Dysphagia diet - Hx of colorectal cancer - CEA 1.5 - CA 19-9 6.8 - Zofran PRN for nausea - f/u GI recs-- Dr. Pollack Endo - Hx of Diabetes - Accuchecks - ISS ACHS - continue Januvia 100mg PO Renal - BUN/Cr 24/0.8 - continue to monitor - f/u nephro recs-- Dr. Casarez ID - Leukocytosis - WBC 21.3 today, up from 11.9 - Afebrile - Flagyl per GI - continue to monitor PPx - Pain ppx-- Tylenol PRN - DVT ppx-- SCDs, Lovenox on hold - GI ppx-- pepcid Critical Care time spent 40 minutes Objective - Vital Signs/Intake and Output Vital Signs (last 24 hours): Temp Pulse Resp BP Pulse Ox 97.9 F 72 22 139/59 L 97 06/22/18 20:00 06/22/18 20:00 06/22/18 20:00 06/22/18 19:55 06/22/18 20:00 Intake and Output: 06/22/18 06/23/18 18:59 06:59 Intake Total 1160 80 Output Total 900 Balance 260 80 - Medications Medications: Current Medications Acetaminophen (Tylenol 325mg Tab) 650 mg PO Q6 PRN PRN Reason: Headache Amlodipine Besylate (Norvasc) 10 mg PO DAILY [facility] Aspirin (Aspirin Chewable) 81 mg PO DAILY [facility] Last Admin: 06/22/18 09:19 Dose: 81 mg Enoxaparin Sodium (Lovenox) 30 mg SC DAILY [facility] Last Admin: 06/22/18 09:20 Dose: 30 mg Famotidine (Pepcid) 20 mg PO BID [facility] Last Admin: 06/22/18 17:56 Dose: 20 mg Hydralazine HCl (Apresoline) 25 mg PO Q4 PRN PRN Reason: SEE DOSE INSTRUCTIONS Metronidazole (Flagyl) 500 mg in 100 mls @ 100 mls/hr IVPB Q8H [facility]; Protocol Last Admin: 06/22/18 18:14 Dose: 100 mls/hr Sodium Chloride (Sodium Chloride 0.9%) 1,000 mls @ 80 mls/hr IV .[id number] [facility] Last Admin: 06/22/18 15:55 Dose: 80 mls/hr Insulin Aspart (Novolog) 0 unit SC ACHS [facility]; Protocol Labetalol HCl (Trandate) 100 mg PO BID [facility] Last Admin: 06/22/18 18:14 Dose: 100 mg Losartan Potassium (Cozaar) 100 mg PO DAILY [facility] Ondansetron HCl (Zofran Inj) 4 mg IVP Q6H PRN PRN Reason: Nausea/Vomiting Rosuvastatin Calcium (Crestor) 2.5 mg PO HS [facility] Last Admin: 06/21/18 21:28 Dose: 2.5 mg Sitagliptin Phosphate (Januvia) 100 mg PO DAILY [facility] Last Admin: 06/22/18 12:03 Dose: 100 mg - Labs Labs: 06/22/18 08:28 06/22/18 08:28 PT 10.9 SECONDS (9.7-12.2) 06/19/18 14:09 INR 1.0 06/19/18 14:09 APTT 77 SECONDS (21-34) H D 06/20/18 08:23
[2018-06-22] MEDS ORDERED: (Novolog) Insulin Aspart, Recombinant 100 u/ml 10 ml vial SC SCH (22:00)
[2018-06-22] MEDS: Rosuvastatin Calcium 2.5 mg Tab PO SCH (22:32)
[2018-06-22] MEDS: (Novolog) Insulin Aspart, Recombinant 100 u/ml 10 ml vial SC SCH (22:33)
[2018-06-23] MEDS: metroNIDAZOLE IV 500 mg/100 ml 500 MG/100 ML BAG IVPB SCH ×3 (02:34→18:06)
[2018-06-23] MEDS: Sodium Chloride 0.9% 1,000 ML IV SCH (05:13)
[2018-06-23 06:10] LABS: MEAN CELL VOLUME 61.8 fL (80.0-94.0); MEAN CORPUSCULAR HEMOGLOBIN 19.1 pg (27.0-31.0); MEAN CORPUSCULAR HGB CONC 30.9 g/dL (33.0-37.0); RED CELL DISTRIBUTION WIDTH 19.5 % (11.5-14.5)
[2018-06-23 06:27] LABS: MEAN PLATELET VOLUME 9.6 fL (7.2-11.7); PLATELET COUNT 235 K/uL (130-400); RBC 6.04 Mil/uL (4.40-5.90); WHITE BLOOD COUNT 13.4 K/uL (4.8-10.8)
--- NOTE | 2018-06-23 07:04 | CP.CCUPN ---
<Jonh Araujo M - Last Filed: 06/23/18 13:34> CCU Subjective - Physician Review Subjective (Free Text): Critical care progress note for Dr. Bowman Patient seen and examined at bedside. Patient states his chest pain, rib pain, SOB, dizziness has resolved since yesterday. Patient admits his last bowel movement was approximately 4 days prior. In AM patient BP elevated in 180s 06/23/18 13:40 CCU Objective - Vital Signs / Intake & Output Vital Signs (Last 4 hours): Vital Signs Temp Pulse Resp BP Pulse Ox 06/23/18 05:55 63 14 166/67 H 98 06/23/18 05:19 64 17 181/64 H 100 06/23/18 05:03 69 17 100 06/23/18 05:00 68 13 99 06/23/18 04:55 164/62 H 06/23/18 04:12 163/70 H 06/23/18 04:00 97.7 F 67 16 98 Intake and Output (Last 8hrs): Intake & Output 06/22/18 06/23/18 06/23/18 22:59 06:59 14:59 Intake Total 1680 860 Output Total 1000 1100 Balance 680 -240 Weight 135 lb 1.6 oz Intake: Intake, IV Amount 1000 640 Right Wrist 500 640 left wrist 500 Oral 680 220 Output: Urine 1000 1100 Urine, Voided 1000 1100 Other: # Voids Urine, Voided 0 1 # Bowel Movements 0 0 - Physical Exam Head: Positive for: Atraumatic, Normocephalic Pupils: Positive for: PERRL Extroacular Muscles: Positive for: EOMI Conjunctiva: Positive for: Normal Mouth: Positive for: Moist Mucous Membranes Neck: Positive for: Normal Range of Motion Respiratory/Chest: Positive for: Clear to Auscultation Cardiovascular: Positive for: Murmurs, Normal S1, S2 Abdomen: Positive for: Normal Bowel Sounds. Negative for: Tenderness, Distention Upper Extremity: Negative for: Cyanosis, Edema Lower Extremity: Positive for: Normal Inspection. Negative for: Edema, CALF TENDERNESS Neurological: Positive for: GCS=15, CN II-XII Intact Skin: Positive for: Warm, Dry, Other (hypopigmentation of face/ upper body, consistent of vitiligo ) Psychiatric: Positive for: Alert, Oriented x 3 - Medications Active Medications: Active Medications Generic Name Dose Route Start Last Admin Trade Name Freq PRN Reason Stop Dose Admin Acetaminophen 650 mg 06/22/18 10:56 Tylenol 325mg Tab PO Q6 PRN Headache Amlodipine Besylate 10 mg 06/23/18 10:30 Norvasc PO DAILY [facility] Aspirin 81 mg 06/20/18 10:00 06/22/18 09:19 Aspirin Chewable PO 81 mg DAILY KELLEN Administration Enoxaparin Sodium 30 mg 06/21/18 10:00 06/22/18 09:20 Lovenox SC 30 mg DAILY KELLEN Administration Famotidine 20 mg 06/22/18 11:45 06/22/18 17:56 Pepcid PO 20 mg BID KELLEN Administration Hydralazine HCl 25 mg 06/22/18 17:00 06/23/18 05:32 Apresoline PO 25 mg Q4 PRN Administration SEE DOSE INSTRUCTIONS Metronidazole 500 mg in 100 mls @ 100 mls/hr 06/22/18 11:00 06/23/18 02:34 Flagyl IVPB 100 mls/hr Q8H KELLEN Administration Protocol Sodium Chloride 1,000 mls @ 80 mls/hr 06/22/18 15:45 06/23/18 05:13 Sodium Chloride 0.9% IV 80 mls/hr .[id number] KELLEN Administration Insulin Aspart 0 unit 06/22/18 16:59 06/22/18 22:33 Novolog SC Not Given ACHS KELLEN Protocol Labetalol HCl 100 mg 06/22/18 18:00 06/22/18 18:14 Trandate PO 100 mg BID KELLEN Administration Losartan Potassium 100 mg 06/22/18 17:01 Cozaar PO DAILY [facility] Ondansetron HCl 4 mg 06/22/18 09:00 Zofran Inj IVP Q6H PRN Nausea/Vomiting Rosuvastatin Calcium 2.5 mg 06/20/18 22:00 06/22/18 22:32 Crestor PO 2.5 mg HS KELLEN Administration Sitagliptin Phosphate 100 mg 06/20/18 10:00 06/22/18 12:03 Januvia PO 100 mg DAILY KELLEN Administration - Patient Studies Lab Studies: Lab Studies 06/23/18 06/23/18 06/22/18 Range/Units 06:00 06:00 21:07 WBC 13.4 H (4.8-10.8) K/uL RBC 6.04 H (4.40-5.90) Mil/uL Hgb 11.5 L D (12.0-18.0) g/dL Hct 37.3 (35.0-51.0) % MCV 61.8 L (80.0-94.0) fL MCH 19.1 L (27.0-31.0) pg MCHC 30.9 L (33.0-37.0) g/dL RDW 19.5 H (11.5-14.5) % Plt Count 235 (130-400) K/uL MPV 9.6 (7.2-11.7) fL Puncture Site pCO2 (35-45) mm/Hg pO2 (80-100) mm/Hg HCO3 (21-28) mmol/L ABG pH (7.35-7.45) ABG Total CO2 (22-28) mmol/L ABG O2 Saturation (95-98) % ABG Base Excess (-2.0-3.0) mmol/L ABG Hemoglobin (11.7-17.4) g/dL ABG Carboxyhemoglobin (0.5-1.5) % POC ABG HHb (Measured) (0.0-5.0) % ABG Methemoglobin (0.0-3.0) % Akira Test A-a O2 Difference mm/Hg Respiratory Index Hgb O2 Saturation (95.0-98.0) % Liter Flow FiO2 % Sodium (132-148) mmol/L Potassium (3.6-5.2) mmol/L Chloride (98-107) mmol/L Carbon Dioxide (22-30) mmol/L Anion Gap (10-20) BUN (9-20) mg/dL Creatinine (0.8-1.5) mg/dL Est GFR ( Amer) Est GFR (Non-Af Amer) POC Glucose (mg/dL) 217 H (65-110) mg/dL Random Glucose (75-110) mg/dL Serum Osmolality 323 H (272-300) mosm/kg Calcium (8.6-10.4) mg/dl Total Bilirubin (0.2-1.3) mg/dL AST (17-59) U/L ALT (21-72) U/L Alkaline Phosphatase (38-126) U/L Total Creatine Kinase (55-170) U/L CK-MB (Mass) (0.0-3.38) ng/mL Troponin I (0.00-0.120) ng/mL Total Protein (6.3-8.3) g/dL Albumin (3.5-5.0) g/dL Globulin (2.2-3.9) gm/dL Albumin/Globulin Ratio (1.0-2.1) Amylase (30-110) U/L Lipase (23-300) U/L 25-OH Vitamin D Total (30.0-100.0) NG/ML TSH 3rd Generation (0.46-4.68) mIU/L 06/22/18 06/22/18 06/22/18 Range/Units 16:15 16:11 08:28 WBC (4.8-10.8) K/uL RBC (4.40-5.90) Mil/uL Hgb (12.0-18.0) g/dL Hct (35.0-51.0) % MCV (80.0-94.0) fL MCH (27.0-31.0) pg MCHC (33.0-37.0) g/dL RDW (11.5-14.5) % Plt Count (130-400) K/uL MPV (7.2-11.7) fL Puncture Site pCO2 (35-45) mm/Hg pO2 (80-100) mm/Hg HCO3 (21-28) mmol/L ABG pH (7.35-7.45) ABG Total CO2 (22-28) mmol/L ABG O2 Saturation (95-98) % ABG Base Excess (-2.0-3.0) mmol/L ABG Hemoglobin (11.7-17.4) g/dL ABG Carboxyhemoglobin (0.5-1.5) % POC ABG HHb (Measured) (0.0-5.0) % ABG Methemoglobin (0.0-3.0) % Akira Test A-a O2 Difference mm/Hg Respiratory Index Hgb O2 Saturation (95.0-98.0) % Liter Flow FiO2 % Sodium 142 (132-148) mmol/L Potassium 4.2 (3.6-5.2) mmol/L Chloride 108 H (98-107) mmol/L Carbon Dioxide 20 L (22-30) mmol/L Anion Gap 18 (10-20) BUN 24 H (9-20) mg/dL Creatinine 0.8 (0.8-1.5) mg/dL Est GFR ( Amer) > 60 Est GFR (Non-Af Amer) > 60 POC Glucose (mg/dL) 255 H (65-110) mg/dL Random Glucose 175 H D (75-110) mg/dL Serum Osmolality 322 H (272-300) mosm/kg Calcium 9.7 (8.6-10.4) mg/dl Total Bilirubin 0.9 (0.2-1.3) mg/dL AST 31 (17-59) U/L ALT 12 L D (21-72) U/L Alkaline Phosphatase 100 (38-126) U/L Total Creatine Kinase 39 L (55-170) U/L CK-MB (Mass) 1.23 (0.0-3.38) ng/mL Troponin I 0.0490 (0.00-0.120) ng/mL Total Protein 8.3 (6.3-8.3) g/dL Albumin 4.7 (3.5-5.0) g/dL Globulin 3.7 (2.2-3.9) gm/dL Albumin/Globulin Ratio 1.3 (1.0-2.1) Amylase 83 (30-110) U/L Lipase 21 L (23-300) U/L 25-OH Vitamin D Total (30.0-100.0) NG/ML TSH 3rd Generation (0.46-4.68) mIU/L 06/22/18 06/22/18 06/22/18 Range/Units 08:28 07:49 07:14 WBC 21.3 H D (4.8-10.8) K/uL RBC 7.11 H (4.40-5.90) Mil/uL Hgb 13.6 (12.0-18.0) g/dL Hct 43.7 (35.0-51.0) % MCV 61.4 L (80.0-94.0) fL MCH 19.2 L (27.0-31.0) pg MCHC 31.2 L (33.0-37.0) g/dL RDW 19.6 H (11.5-14.5) % Plt Count 288 (130-400) K/uL MPV 9.3 (7.2-11.7) fL Puncture Site Rba pCO2 33 L (35-45) mm/Hg pO2 90 (80-100) mm/Hg HCO3 21.2 (21-28) mmol/L ABG pH 7.38 (7.35-7.45) ABG Total CO2 20.5 L (22-28) mmol/L ABG O2 Saturation 96.1 (95-98) % ABG Base Excess -4.8 L (-2.0-3.0) mmol/L ABG Hemoglobin 12.9 (11.7-17.4) g/dL ABG Carboxyhemoglobin 0.2 L (0.5-1.5) % POC ABG HHb (Measured) 3.9 (0.0-5.0) % ABG Methemoglobin 0.0 (0.0-3.0) % Akira Test Na A-a O2 Difference 68.0 mm/Hg Respiratory Index 0.8 Hgb O2 Saturation 95.9 (95.0-98.0) % Liter Flow 2.0 FiO2 28.0 % Sodium (132-148) mmol/L Potassium (3.6-5.2) mmol/L Chloride (98-107) mmol/L Carbon Dioxide (22-30) mmol/L Anion Gap (10-20) BUN (9-20) mg/dL Creatinine (0.8-1.5) mg/dL Est GFR ( Amer) Est GFR (Non-Af Amer) POC Glucose (mg/dL) (65-110) mg/dL Random Glucose (75-110) mg/dL Serum Osmolality (272-300) mosm/kg Calcium (8.6-10.4) mg/dl Total Bilirubin (0.2-1.3) mg/dL AST (17-59) U/L ALT (21-72) U/L Alkaline Phosphatase (38-126) U/L Total Creatine Kinase (55-170) U/L CK-MB (Mass) (0.0-3.38) ng/mL Troponin I (0.00-0.120) ng/mL Total Protein (6.3-8.3) g/dL Albumin (3.5-5.0) g/dL Globulin (2.2-3.9) gm/dL Albumin/Globulin Ratio (1.0-2.1) Amylase (30-110) U/L Lipase (23-300) U/L 25-OH Vitamin D Total (30.0-100.0) NG/ML TSH 3rd Generation 0.62 (0.46-4.68) mIU/L 06/22/18 Range/Units 07:14 WBC (4.8-10.8) K/uL RBC (4.40-5.90) Mil/uL Hgb (12.0-18.0) g/dL Hct (35.0-51.0) % MCV (80.0-94.0) fL MCH (27.0-31.0) pg MCHC (33.0-37.0) g/dL RDW (11.5-14.5) % Plt Count (130-400) K/uL MPV (7.2-11.7) fL Puncture Site pCO2 (35-45) mm/Hg pO2 (80-100) mm/Hg HCO3 (21-28) mmol/L ABG pH (7.35-7.45) ABG Total CO2 (22-28) mmol/L ABG O2 Saturation (95-98) % ABG Base Excess (-2.0-3.0) mmol/L ABG Hemoglobin (11.7-17.4) g/dL ABG Carboxyhemoglobin (0.5-1.5) % POC ABG HHb (Measured) (0.0-5.0) % ABG Methemoglobin (0.0-3.0) % Akira Test A-a O2 Difference mm/Hg Respiratory Index Hgb O2 Saturation (95.0-98.0) % Liter Flow FiO2 % Sodium (132-148) mmol/L Potassium (3.6-5.2) mmol/L Chloride (98-107) mmol/L Carbon Dioxide (22-30) mmol/L Anion Gap (10-20) BUN (9-20) mg/dL Creatinine (0.8-1.5) mg/dL Est GFR ( Amer) Est GFR (Non-Af Amer) POC Glucose (mg/dL) (65-110) mg/dL Random Glucose (75-110) mg/dL Serum Osmolality (272-300) mosm/kg Calcium (8.6-10.4) mg/dl Total Bilirubin (0.2-1.3) mg/dL AST (17-59) U/L ALT (21-72) U/L Alkaline Phosphatase (38-126) U/L Total Creatine Kinase (55-170) U/L CK-MB (Mass) (0.0-3.38) ng/mL Troponin I (0.00-0.120) ng/mL Total Protein (6.3-8.3) g/dL Albumin (3.5-5.0) g/dL Globulin (2.2-3.9) gm/dL Albumin/Globulin Ratio (1.0-2.1) Amylase (30-110) U/L Lipase (23-300) U/L 25-OH Vitamin D Total 29.7 L (30.0-100.0) NG/ML TSH 3rd Generation (0.46-4.68) mIU/L Laboratory Results - last 24 hr 06/22/18 06/22/18 06/22/18 07:14 07:14 07:49 WBC RBC Hgb Hct MCV MCH MCHC RDW Plt Count MPV Puncture Site Rba pCO2 33 L pO2 90 HCO3 21.2 ABG pH 7.38 ABG Total CO2 20.5 L ABG O2 Saturation 96.1 ABG Base Excess -4.8 L ABG Hemoglobin 12.9 ABG Carboxyhemoglobin 0.2 L POC ABG HHb (Measured) 3.9 ABG Methemoglobin 0.0 Akira Test Na A-a O2 Difference 68.0 Respiratory Index 0.8 Hgb O2 Saturation 95.9 Liter Flow 2.0 FiO2 28.0 Sodium Potassium Chloride Carbon Dioxide Anion Gap BUN Creatinine Est GFR ( Amer) Est GFR (Non-Af Amer) POC Glucose (mg/dL) Random Glucose Serum Osmolality Calcium Total Bilirubin AST ALT Alkaline Phosphatase Total Creatine Kinase CK-MB (Mass) Troponin I Total Protein Albumin Globulin Albumin/Globulin Ratio Amylase Lipase 25-OH Vitamin D Total 29.7 L TSH 3rd Generation 0.62 06/22/18 06/22/18 06/22/18 08:28 08:28 16:11 WBC 21.3 H D RBC 7.11 H Hgb 13.6 Hct 43.7 MCV 61.4 L MCH 19.2 L MCHC 31.2 L RDW 19.6 H Plt Count 288 MPV 9.3 Puncture Site pCO2 pO2 HCO3 ABG pH ABG Total CO2 ABG O2 Saturation ABG Base Excess ABG Hemoglobin ABG Carboxyhemoglobin POC ABG HHb (Measured) ABG Methemoglobin Akira Test A-a O2 Difference Respiratory Index Hgb O2 Saturation Liter Flow FiO2 Sodium 142 Potassium 4.2 Chloride 108 H Carbon Dioxide 20 L Anion Gap 18 BUN 24 H Creatinine 0.8 Est GFR ( Amer) > 60 Est GFR (Non-Af Amer) > 60 POC Glucose (mg/dL) 255 H Random Glucose 175 H D Serum Osmolality Calcium 9.7 Total Bilirubin 0.9 AST 31 ALT 12 L D Alkaline Phosphatase 100 Total Creatine Kinase 39 L CK-MB (Mass) 1.23 Troponin I 0.0490 Total Protein 8.3 Albumin 4.7 Globulin 3.7 Albumin/Globulin Ratio 1.3 Amylase 83 Lipase 21 L 25-OH Vitamin D Total TSH 3rd Generation 06/22/18 06/22/18 06/23/18 16:15 21:07 06:00 WBC 13.4 H RBC 6.04 H Hgb 11.5 L D Hct 37.3 MCV 61.8 L MCH 19.1 L MCHC 30.9 L RDW 19.5 H Plt Count 235 MPV 9.6 Puncture Site pCO2 pO2 HCO3 ABG pH ABG Total CO2 ABG O2 Saturation ABG Base Excess ABG Hemoglobin ABG Carboxyhemoglobin POC ABG HHb (Measured) ABG Methemoglobin Akira Test A-a O2 Difference Respiratory Index Hgb O2 Saturation Liter Flow FiO2 Sodium Potassium Chloride Carbon Dioxide Anion Gap BUN Creatinine Est GFR ( Amer) Est GFR (Non-Af Amer) POC Glucose (mg/dL) 217 H Random Glucose Serum Osmolality 322 H Calcium Total Bilirubin AST ALT Alkaline Phosphatase Total Creatine Kinase CK-MB (Mass) Troponin I Total Protein Albumin Globulin Albumin/Globulin Ratio Amylase Lipase 25-OH Vitamin D Total TSH 3rd Generation 06/23/18 06:00 WBC RBC Hgb Hct MCV MCH MCHC RDW Plt Count MPV Puncture Site pCO2 pO2 HCO3 ABG pH ABG Total CO2 ABG O2 Saturation ABG Base Excess ABG Hemoglobin ABG Carboxyhemoglobin POC ABG HHb (Measured) ABG Methemoglobin Akira Test A-a O2 Difference Respiratory Index Hgb O2 Saturation Liter Flow FiO2 Sodium Potassium Chloride Carbon Dioxide Anion Gap BUN Creatinine Est GFR ( Amer) Est GFR (Non-Af Amer) POC Glucose (mg/dL) Random Glucose Serum Osmolality 323 H Calcium Total Bilirubin AST ALT Alkaline Phosphatase Total Creatine Kinase CK-MB (Mass) Troponin I Total Protein Albumin Globulin Albumin/Globulin Ratio Amylase Lipase 25-OH Vitamin D Total TSH 3rd Generation Radiology Impressions: Radiology Impressions Carotid Doppler Study 06/20/18 17:47 IMPRESSION: RIGHT: Duplex scan does not suggest hemodynamically significant stenosis of the right extracranial carotid arteries. LEFT: Duplex scan does not suggest hemodynamically significant stenosis of the left extracranial carotid arteries. Renal Scan Nuclear Medicine 06/21/18 09:54 IMPRESSION: No definite hemodynamically significant stenosis involving the renal arteries as visualized. Multiple cystic structures noted in both kidneys. Clinical correlation recommended. Head CT 06/22/18 06:55 IMPRESSION: Subacute left cerebellar hemispheric infarct with mass effect upon the 4th ventricle and spinal canal. There has been increase in attenuation of the cerebellar infarct consistent with petechial hemorrhage within the infarct. No gross acute hemorrhage identified. 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 Chest X-Ray 06/22/18 09:39 Impression: Mild venous congestion. Diffuse increased interstitial lung markings. Right paratracheal prominence may represent prominent vasculature. Patchy increased markings in the right infrahilar region. Small nodular density at the lateral aspect of the right midlung zone. Atherosclerotic calcification at the aortic knob. Tortuous ectatic aorta. Mild cardiomegaly. Degenerative changes in the spine and shoulders. Ribs X-Ray 06/22/18 12:07 IMPRESSION: No acute rib fracture. Clear lungs. EKG/Cardiology Studies: Cardiology / EKG Studies 06/22/18 06:52 ELECTROCARDIOGRAM Stat Comment: Mode Of Transportation: Reason For Exam: CVA 06/22/18 07:23 ELECTROCARDIOGRAM Stat Comment: Mode Of Transportation: PORTABLE Reason For Exam: ?? DE Fingerstick Blood Sugar Results: 217 Review of Systems - Constitutional Constitutional: absent: Fever, Chills, Sweats, Weakness - EENT Eyes: UNREMARKABLE. absent: Blurred Vision, Discharge Ears: UNREMARKABLE Nose/Mouth/Throat: UNREMARKABLE. absent: Nasal Congestion, Nasal Trauma - Cardiovascular Cardiovascular: UNREMARKABLE. absent: Chest Pain, Chest Pain at Rest, Dyspnea - Respiratory Respiratory: UNREMARKABLE. absent: Cough, Dyspnea - Gastrointestinal Gastrointestinal: UNREMARKABLE. absent: Abdominal Pain, Diarrhea - Genitourinary Genitourinary: UNREMARKABLE. absent: Difficulty Urinating - Musculoskeletal Musculoskeletal: UNREMARKABLE. absent: Arthralgias, Back Pain - Integumentary Integumentary: UNREMARKABLE. absent: Hirsutism - Neurological Neurological: absent: Paresthesias, Tingling, UNREMARKABLE - Psychiatric Psychiatric: UNREMARKABLE. absent: Confusion, Depression - Endocrine Endocrine: UNREMARKABLE. absent: Deepening of Voice Critical Care Progress Note - Prophylaxis GI Prophylaxis GI: Pepsid - Prophylaxis DVT Prophylaxis DVT: Not Indicated - Nutrition Nutrition: Nutrition Category Date Time Status Mechanically altered [Dysphagia/Modified Consistency Diets 06/21/18 Lunch Active Diet] [DIET] Assessment/Plan - Assessment and Plan (Free Text) Assessment: 77 year old male with PMHx of HTN, DM, and colorectal cancer, who was admitted to telemetry on 06/19 for subacute CVA and NSTEMI (s/p cath RCA 50-55%, no stent required). Patient was transferred to ICU following HTN emergency, petechial hemorrhage of left cerebellum per CT on 06/22. Repeat Ct showing resolution. Pt remains uncontrolled HTN, will re-adjust medications for goal of SBP 140s. 1. Hypertensive Emergency 2. Subacute infarct of left cerebellum 3. Petechial hemorrhage of left cerebellum 4. NSTEMI Plan: Neuro - AAOx3 - CT head 06/19: subacute infarct in left cerebellum; subacute to chronic infarct in right frontal lobe - CT head 06/22: subacute left cerebellar hemispheric infarct with mass effect upon 4th ventricle and spinal canal; increase attentuation of cerebellar infarct consistent with petechial hemorrhage within infarct; no gross acute hemorrhage identified; mild hydrocephalus - Prevent HTN above 140 systolic - hold anticoagulation - F/u neuro recs - continue to monitor - F/u EEG - F/u neurosurgery recs - no surgical intervention at this time - neurochecks Q4H, seizure, aspiration precautions Cardiac - Hypertension emergency, resolved - Norvasc 10 mg PO daily - Cozaar 100mg daily, Hydralazine 25mg Q4 PRN - increase Labetalol 100mg Q8H - NSTEMI s/p cardiac cath on 06/20 - EF normal, nonobstructive coronary arteries - Troponin (06/22) neg; positive on admission (0.137, 0.122, 0.125) - continue Crestor 2.5mg PO - hold ASA 81mg, Lovenox 30mg - f/u cardiac recs-- Dr. Sudarshan Eastman - ABG 7.38/33/90/21.2 06/22 - 98% on NC - CXR 06/22: mild venous congestion, diffuse increased interstitial marking; patchy increased marking in right infrahilar region - Ribs xray: no acute fracture GI - PT/ - Dysphagia diet - Hx of colorectal cancer - CEA 1.5 - CA 19-9 6.8 - Zofran PRN for nausea - f/u GI recs-- Dr. Pollack Endo - Hx of Diabetes - Accuchecks - ISS ACHS - continue Januvia 100mg PO Renal - BUN/Cr 24/0.9 - continue to monitor - f/u nephro recs-- Dr. Casarez ID - Leukocytosis - WBC downtrneding, 21 -> 13 - Afebrile - Flagyl per GI - continue to monitor PPx - Pain ppx-- Tylenol PRN - DVT ppx-- SCDs, Lovenox on hold - GI ppx-- pepcid - PT/OT <Latef,Elia M - Last Filed: 06/23/18 18:14> CCU Objective - Vital Signs / Intake & Output Vital Signs (Last 4 hours): Vital Signs Temp Pulse Resp BP Pulse Ox 06/23/18 18:09 71 13 169/70 H 100 06/23/18 18:00 74 16 99 06/23/18 17:00 72 14 98 06/23/18 16:57 69 13 165/71 H 97 06/23/18 16:00 97.5 F L 74 11 L 98 06/23/18 15:58 77 16 163/62 H 97 06/23/18 14:58 71 11 L 136/56 L 99 06/23/18 14:57 70 13 99 Intake and Output (Last 8hrs): Intake & Output 06/23/18 06/23/18 06/23/18 06:59 14:59 22:59 Intake Total 860 950 200 Output Total 1100 400 200 Balance -240 550 0 Weight 135 lb 1.6 oz Intake: Intake, IV Amount 640 500 100 Right Wrist 640 500 100 Oral 220 450 100 Output: Urine 1100 400 200 Urine, Voided 1100 400 200 Other: # Voids Urine, Voided 1 0 # Bowel Movements 0 0 - Medications Active Medications: Active Medications Generic Name Dose Route Start Last Admin Trade Name Freq PRN Reason Stop Dose Admin Acetaminophen 650 mg 06/22/18 10:56 Tylenol 325mg Tab PO Q6 PRN Headache Amlodipine Besylate 10 mg 06/23/18 10:30 06/23/18 11:05 Norvasc PO 10 mg DAILY KELLEN Administration Aspirin 81 mg 06/20/18 10:00 06/22/18 09:19 Aspirin Chewable PO 81 mg DAILY KELLEN Administration Docusate Sodium 100 mg 06/23/18 18:00 06/23/18 17:37 Colace PO 06/25/18 10:01 100 mg BID [facility] Administration Enoxaparin Sodium 30 mg 06/21/18 10:00 06/22/18 09:20 Lovenox SC 30 mg DAILY [facility] Administration Famotidine 20 mg 06/22/18 11:45 06/23/18 17:37 Pepcid PO 20 mg BID [facility] Administration Hydralazine HCl 25 mg 06/22/18 17:00 06/23/18 05:32 Apresoline PO 25 mg Q4 PRN Administration SEE DOSE INSTRUCTIONS Metronidazole 500 mg in 100 mls @ 100 mls/hr 06/22/18 11:00 06/23/18 18:06 Flagyl IVPB 100 mls/hr Q8H [facility] Administration Protocol Insulin Aspart 0 unit 06/22/18 16:59 06/23/18 16:39 Novolog SC 3 units ACHS [facility] Administration Protocol Labetalol HCl 100 mg 06/23/18 14:00 06/23/18 14:58 Trandate PO Not Given Q8H [facility] Losartan Potassium 100 mg 06/22/18 17:01 06/23/18 09:04 Cozaar PO 100 mg DAILY [facility] Administration Ondansetron HCl 4 mg 06/22/18 09:00 Zofran Inj IVP Q6H PRN Nausea/Vomiting Rosuvastatin Calcium 2.5 mg 06/20/18 22:00 06/22/18 22:32 Crestor PO 2.5 mg HS KELLEN Administration Sitagliptin Phosphate 100 mg 06/20/18 10:00 06/23/18 09:05 Januvia PO 100 mg DAILY [facility] Administration - Patient Studies Lab Studies: Lab Studies 06/23/18 06/23/18 06/23/18 Range/Units 06:00 06:00 06:00 WBC 13.4 H (4.8-10.8) K/uL RBC 6.04 H (4.40-5.90) Mil/uL Hgb 11.5 L D (12.0-18.0) g/dL Hct 37.3 (35.0-51.0) % MCV 61.8 L (80.0-94.0) fL MCH 19.1 L (27.0-31.0) pg MCHC 30.9 L (33.0-37.0) g/dL RDW 19.5 H (11.5-14.5) % Plt Count 235 (130-400) K/uL MPV 9.6 (7.2-11.7) fL Neut % (Auto) 88.0 H (50.0-75.0) % Lymph % (Auto) 8.0 L (20.0-40.0) % Fergus % (Auto) 2.0 (0.0-10.0) % Eos % (Auto) 2.0 (0.0-4.0) % Baso % (Auto) 0.0 (0.0-2.0) % Neut # (Auto) 12.0 H (1.8-7.0) K/uL Lymph # (Auto) 1.0 (1.0-4.3) K/uL Fergus # (Auto) 0.2 (0.0-0.8) K/uL Eos # (Auto) 0.2 (0.0-0.7) K/uL Baso # (Auto) 0.0 (0.0-0.2) K/uL Neutrophils % (Manual) 88 H (50-75) % Lymphocytes % (Manual) 8 L (20-40) % Monocytes % (Manual) 2 (0-10) % Eosinophils % (Manual) 2 (0-4) % Platelet Estimate Normal (NORMAL) Polychromasia Slight Hypochromasia (manual) Slight Anisocytosis (manual) Slight Microcytosis (manual) Slight Target Cells Slight Ovalocytes Slight Schistocytes Slight Sodium 140 (132-148) mmol/L Potassium 3.8 (3.6-5.2) mmol/L Chloride 109 H (98-107) mmol/L Carbon Dioxide 23 (22-30) mmol/L Anion Gap 12 (10-20) BUN 28 H (9-20) mg/dL Creatinine 0.9 (0.8-1.5) mg/dL Est GFR ( Amer) > 60 Est GFR (Non-Af Amer) > 60 POC Glucose (mg/dL) (65-110) mg/dL Random Glucose 174 H (75-110) mg/dL Serum Osmolality 323 H (272-300) mosm/kg Calcium 9.2 (8.6-10.4) mg/dl Phosphorus 3.0 (2.5-4.5) mg/dL Magnesium 2.2 (1.6-2.3) mg/dL Total Bilirubin 0.6 (0.2-1.3) mg/dL AST 26 (17-59) U/L ALT 14 L (21-72) U/L Alkaline Phosphatase 93 (38-126) U/L Total Protein 6.6 (6.3-8.3) g/dL Albumin 3.9 (3.5-5.0) g/dL Globulin 2.8 (2.2-3.9) gm/dL Albumin/Globulin Ratio 1.4 (1.0-2.1) 06/22/18 06/22/18 06/22/18 Range/Units 21:07 11:09 06:34 WBC (4.8-10.8) K/uL RBC (4.40-5.90) Mil/uL Hgb (12.0-18.0) g/dL Hct (35.0-51.0) % MCV (80.0-94.0) fL MCH (27.0-31.0) pg MCHC (33.0-37.0) g/dL RDW (11.5-14.5) % Plt Count (130-400) K/uL MPV (7.2-11.7) fL Neut % (Auto) (50.0-75.0) % Lymph % (Auto) (20.0-40.0) % Fergus % (Auto) (0.0-10.0) % Eos % (Auto) (0.0-4.0) % Baso % (Auto) (0.0-2.0) % Neut # (Auto) (1.8-7.0) K/uL Lymph # (Auto) (1.0-4.3) K/uL Fergus # (Auto) (0.0-0.8) K/uL Eos # (Auto) (0.0-0.7) K/uL Baso # (Auto) (0.0-0.2) K/uL Neutrophils % (Manual) (50-75) % Lymphocytes % (Manual) (20-40) % Monocytes % (Manual) (0-10) % Eosinophils % (Manual) (0-4) % Platelet Estimate (NORMAL) Polychromasia Hypochromasia (manual) Anisocytosis (manual) Microcytosis (manual) Target Cells Ovalocytes Schistocytes Sodium (132-148) mmol/L Potassium (3.6-5.2) mmol/L Chloride (98-107) mmol/L Carbon Dioxide (22-30) mmol/L Anion Gap (10-20) BUN (9-20) mg/dL Creatinine (0.8-1.5) mg/dL Est GFR ( Amer) Est GFR (Non-Af Amer) POC Glucose (mg/dL) 217 H 192 H 174 H (65-110) mg/dL Random Glucose (75-110) mg/dL Serum Osmolality (272-300) mosm/kg Calcium (8.6-10.4) mg/dl Phosphorus (2.5-4.5) mg/dL Magnesium (1.6-2.3) mg/dL Total Bilirubin (0.2-1.3) mg/dL AST (17-59) U/L ALT (21-72) U/L Alkaline Phosphatase (38-126) U/L Total Protein (6.3-8.3) g/dL Albumin (3.5-5.0) g/dL Globulin (2.2-3.9) gm/dL Albumin/Globulin Ratio (1.0-2.1) Laboratory Results - last 24 hr 06/22/18 06/22/18 06/22/18 06:34 11:09 21:07 WBC RBC Hgb Hct MCV MCH MCHC RDW Plt Count MPV Neut % (Auto) Lymph % (Auto) Fergus % (Auto) Eos % (Auto) Baso % (Auto) Neut # (Auto) Lymph # (Auto) Fergus # (Auto) Eos # (Auto) Baso # (Auto) Neutrophils % (Manual) Lymphocytes % (Manual) Monocytes % (Manual) Eosinophils % (Manual) Platelet Estimate Polychromasia Hypochromasia (manual) Anisocytosis (manual) Microcytosis (manual) Target Cells Ovalocytes Schistocytes Sodium Potassium Chloride Carbon Dioxide Anion Gap BUN Creatinine Est GFR ( Amer) Est GFR (Non-Af Amer) POC Glucose (mg/dL) 174 H 192 H 217 H Random Glucose Serum Osmolality Calcium Phosphorus Magnesium Total Bilirubin AST ALT Alkaline Phosphatase Total Protein Albumin Globulin Albumin/Globulin Ratio 06/23/18 06/23/18 06/23/18 06:00 06:00 06:00 WBC 13.4 H RBC 6.04 H Hgb 11.5 L D Hct 37.3 MCV 61.8 L MCH 19.1 L MCHC 30.9 L RDW 19.5 H Plt Count 235 MPV 9.6 Neut % (Auto) 88.0 H Lymph % (Auto) 8.0 L Fergus % (Auto) 2.0 Eos % (Auto) 2.0 Baso % (Auto) 0.0 Neut # (Auto) 12.0 H Lymph # (Auto) 1.0 Fergus # (Auto) 0.2 Eos # (Auto) 0.2 Baso # (Auto) 0.0 Neutrophils % (Manual) 88 H Lymphocytes % (Manual) 8 L Monocytes % (Manual) 2 Eosinophils % (Manual) 2 Platelet Estimate Normal Polychromasia Slight Hypochromasia (manual) Slight Anisocytosis (manual) Slight Microcytosis (manual) Slight Target Cells Slight Ovalocytes Slight Schistocytes Slight Sodium 140 Potassium 3.8 Chloride 109 H Carbon Dioxide 23 Anion Gap 12 BUN 28 H Creatinine 0.9 Est GFR ( Amer) > 60 Est GFR (Non-Af Amer) > 60 POC Glucose (mg/dL) Random Glucose 174 H Serum Osmolality 323 H Calcium 9.2 Phosphorus 3.0 Magnesium 2.2 Total Bilirubin 0.6 AST 26 ALT 14 L Alkaline Phosphatase 93 Total Protein 6.6 Albumin 3.9 Globulin 2.8 Albumin/Globulin Ratio 1.4 Radiology Impressions: Radiology Impressions Head CT 06/23/18 09:00 IMPRESSION: No acute intracranial hemorrhage. Subacute infarct left cerebellar hemisphere. Tiny acute-subacute infarct right superior basal ganglia/coronal radiata junction less well seen. Stable right frontal lobe infarct, chronic white matter and basal nuclei ischemic changes. Note that all these findings seen to better advantage on prior MRI. Moderate generalized volume loss. Critical Care Progress Note - Nutrition Nutrition: Nutrition Category Date Time Status Mechanically altered [Dysphagia/Modified Consistency Diets 06/21/18 Lunch Active Diet] [DIET] Attending/Attestation - Attestation I have personally seen and examined this patient.: Yes I have fully participated in the care of the patient.: Yes I have reviewed all pertinent clinical information: Yes Notes (Text): 06/23/18 18:14 Today: June The Patient was seen and examined at the bedside, Medical records reviewed, and management issues were discussed and formulated with the house staff. I have reviewed all the relevant clinical, laboratory, hemodynamic, radiographic data and medications Events reviewed Pain issues, skin care, head of the bed elevation, glycemic control were addressed. Agree with above resident's assessment and treatment plans of care as transcribed in Dr. Araujo's note.
[2018-06-23 07:12] LABS: BLOOD UREA NITROGEN 28 mg/dL (9-20); CALCIUM 9.2 mg/dl (8.6-10.4); GFR NON-AFRICAN AMERICAN > 60
[2018-06-23 07:13] LABS: ALB/GLOB RATIO 1.4 (1.0-2.1); ALBUMIN 3.9 g/dL (3.5-5.0); ALT/SGPT 14 U/L (21-72); AST/SGOT 26 U/L (17-59)
[2018-06-23 07:49] LABS: HEMOGLOBIN 11.5 g/dL (12.0-18.0)
[2018-06-23] MEDS: (Novolog) Insulin Aspart, Recombinant 100 u/ml 10 ml vial SC SCH ×4 (08:08→21:12)
[2018-06-23 09:11] LABS: EOS # 0.2 K/uL (0.0-0.7); MONO # 0.2 K/uL (0.0-0.8)
[2018-06-23 09:15] LABS: LYMPHOCYTE 8 % (20-40); MONOCYTE 2 % (0-10); NEUTROPHIL 88 % (50-75)
[2018-06-23 09:16] LABS: EOSINOPHIL 2 % (0-4); PLATELET ESTIMATE NORMAL (NORMAL)
[2018-06-23 09:17] LABS: ANISOCYTOSIS SLIGHT; MICROCYTOSIS SLIGHT
[2018-06-23 09:18] LABS: HYPOCHROMIC SLIGHT; OVALOCYTES SLIGHT; POLYCHROMIC SLIGHT; TARGET CELLS SLIGHT
[2018-06-23 09:19] LABS: SCHISTOCYTES SLIGHT
[2018-06-23 09:26] LABS: TOTAL CELLS COUNTED 100
--- NOTE | 2018-06-23 09:26 | CT ---
Date of service: 06/23/2018 PROCEDURE: CT HEAD WITHOUT CONTRAST. HISTORY: Hemorrhagic stroke. COMPARISON: Comparison made with prior CT scan of the brain 06/22/2018. comparison also made with prior MRI of the brain dated 06/21 18. TECHNIQUE: Axial computed tomography images were obtained through the head/brain without intravenous contrast. Radiation dose: Total exam DLP = 1052.3 mGy-cm. This CT exam was performed using one or more of the following dose reduction techniques: Automated exposure control, adjustment of the mA and/or kV according to patient size, and/or use of iterative reconstruction technique. FINDINGS: HEMORRHAGE: No acute parenchymal, subarachnoid or extra-axial hemorrhage. BRAIN: Redemonstrated is a subacute infarct left anterior inferior cerebellar hemisphere. Tiny acute infarct left lateral superior basal ganglia/coronal radiata junction not well appreciated on this CT as compared to high-resolution MRI Chronic right frontal lobe infarct and mild to moderate diffuse and confluent chronic periventricular deep and subcortical white matter ischemic changes and multiple chronic bilateral basal nuclei lacunar type infarcts also present though less well seen compared prior MRI. VENTRICLES: No obstructive hydrocephalus. CALVARIUM: Unremarkable. PARANASAL SINUSES: Minor mucosal thickening seen in the ethmoid air complex MASTOID AIR CELLS: Unremarkable as visualized. No inflammatory changes. OTHER FINDINGS: Note made of tiny calcifications within both the TMJs. IMPRESSION: No acute intracranial hemorrhage. Subacute infarct left cerebellar hemisphere. Tiny acute-subacute infarct right superior basal ganglia/coronal radiata junction less well seen. Stable right frontal lobe infarct, chronic white matter and basal nuclei ischemic changes. Note that all these findings seen to better advantage on prior MRI. Moderate generalized volume loss.
--- NOTE | 2018-06-23 10:16 | PN ---
DATE: 06/23/2018 TIME OF EVALUATION: 7:15 a.m. NEUROLOGICAL PROBLEM: Cerebellar stroke with impending midbrain dysfunction. PHYSICAL EXAMINATION: VITAL SIGNS: Blood pressure 171/68, pulse rate 79, and heart rate normal sinus rhythm. GENERAL: The patient is more awake, alert, oriented to person, place, and time. HEENT: Extraocular movement, no sign of nystagmus. No facial asymmetry. Dysmetria is all resolved. Mild left hemiparesis also improving. Left plantars are upgoing. The patient did have a CT of the head, which is consistent with basilar worsening of the stroke with brainstem and hemorrhagic conversion. The patient was held on aspirin and heparin due to the hemorrhagic conversion. The patient responded well with Mannitol. RECOMMENDATION: Maintain the blood pressure to control. Keep mean arterial pressure around 100. Continue hydration for now. Resume p.o. if medically stable. The patient clinically improved and blood pressure medication should be adjusted by skiver counter. The patient will be followed closely with you. Salvatore Lyons MD
--- NOTE | 2018-06-23 12:37 | CP.PCM.PN ---
Subjective - Date & Time of Evaluation Date of Evaluation: 06/23/18 Time of Evaluation: 12:35 - Subjective Subjective: C/O DIZZINESS. NO HEADACHE. BP CONTROLLED. Objective - Vital Signs/Intake and Output Vital Signs (last 24 hours): Temp Pulse Resp BP Pulse Ox 97.5 F L 59 L 10 L 146/57 L 100 06/23/18 08:00 06/23/18 12:00 06/23/18 12:00 06/23/18 11:58 06/23/18 12:00 Intake and Output: 06/23/18 06/23/18 06:59 18:59 Intake Total 1880 850 Output Total 1500 Balance 380 850 - Medications Medications: Current Medications Acetaminophen (Tylenol 325mg Tab) 650 mg PO Q6 PRN PRN Reason: Headache Amlodipine Besylate (Norvasc) 10 mg PO DAILY [facility] Last Admin: 06/23/18 11:05 Dose: 10 mg Aspirin (Aspirin Chewable) 81 mg PO DAILY [facility] Last Admin: 06/22/18 09:19 Dose: 81 mg Enoxaparin Sodium (Lovenox) 30 mg SC DAILY [facility] Last Admin: 06/22/18 09:20 Dose: 30 mg Famotidine (Pepcid) 20 mg PO BID [facility] Last Admin: 06/23/18 09:05 Dose: 20 mg Hydralazine HCl (Apresoline) 25 mg PO Q4 PRN PRN Reason: SEE DOSE INSTRUCTIONS Last Admin: 06/23/18 05:32 Dose: 25 mg Metronidazole (Flagyl) 500 mg in 100 mls @ 100 mls/hr IVPB Q8H [facility]; Protocol Last Admin: 06/23/18 11:34 Dose: 100 mls/hr Insulin Aspart (Novolog) 0 unit SC ACHS [facility]; Protocol Last Admin: 06/23/18 11:42 Dose: 3 units Labetalol HCl (Trandate) 100 mg PO Q8H [facility] Losartan Potassium (Cozaar) 100 mg PO DAILY [facility] Last Admin: 06/23/18 09:04 Dose: 100 mg Ondansetron HCl (Zofran Inj) 4 mg IVP Q6H PRN PRN Reason: Nausea/Vomiting Rosuvastatin Calcium (Crestor) 2.5 mg PO HS [facility] Last Admin: 06/22/18 22:32 Dose: 2.5 mg Sitagliptin Phosphate (Januvia) 100 mg PO DAILY [facility] Last Admin: 06/23/18 09:05 Dose: 100 mg - Labs Labs: 06/23/18 06:00 06/23/18 06:00 PT 10.9 SECONDS (9.7-12.2) 06/19/18 14:09 INR 1.0 06/19/18 14:09 APTT 77 SECONDS (21-34) H D 06/20/18 08:23 - Constitutional Appears: No Acute Distress, Chronically Ill - Eye Exam Eye Exam: PERRL - ENT Exam ENT Exam: Mucous Membranes Moist - Respiratory Exam Respiratory Exam: Clear to Ausculation Bilateral, NORMAL BREATHING PATTERN - Cardiovascular Exam Cardiovascular Exam: REGULAR RHYTHM, +S1, +S2 - GI/Abdominal Exam GI & Abdominal Exam: Soft, Normal Bowel Sounds - Extremities Exam Extremities Exam: Full ROM, Normal Capillary Refill, Normal Inspection. absent: Joint Swelling, Pedal Edema - Back Exam Back Exam: NORMAL INSPECTION - Neurological Exam Neurological Exam: Alert, Awake, CN II-XII Intact, Normal Gait, Oriented x3 Assessment and Plan - Assessment and Plan (Free Text) Assessment: CEREBELLER CVA. HTN. Plan: FOR ICU CARE.
--- NOTE | 2018-06-23 14:49 | PN ---
DATE: 06/23/2018 LOCATION: ICU 3. SUBJECTIVE: This 77-year-old male was seen and examined early today in rounds in the Intensive Care Unit, denying any actual chest pain or evidence of nausea and vomiting. No reported active bleeding. The entire chart is reviewed including but not limited to His most recent lab and radiology study results, current and previous medication list and today's lab results showed white blood cells of 13.4 and hemoglobin 11.5 with low indices with BUN of 28, creatinine normal, blood glucose level of 174 with normal liver function test. Serum lipase, amylase level reported to be within normal limits. Most recently done head CAT scan, today, official report is seen indicative of no acute intracranial hemorrhage but subacute infarct in the left cerebral hemisphere. PHYSICAL EXAMINATION: GENERAL: 77-year-old male, afebrile with pulse of 82, respiratory rate 14 to 16 with blood pressure of 180/72. HEENT: Showed pale dry oral mucoid membrane. Nonicteric sclerae. LUNGS: Few scattered crepitation with mild decrease of air entry bilaterally. HEART: Positive S1 and S2. ABDOMEN: Soft. Bowel sounds are present. No mass or organomegaly. No rebound tenderness or guarding. EXTREMITIES: Without significant edema, clubbing or cyanosis. NEUROLOGICAL: No reported new neurological deficits, sensory or motor. . IMPRESSION: 1. Brain infarct. 2. Re-exacerbation of peptic ulcer disease. 3. Poorly controlled hypertension. 4. Reported history of dysphagia of unclear etiology so far. 5. Known history of colorectal cancer by history. 6. 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 7. Drug-induced coagulopathy. 8. Leukocytosis of unclear etiology. 9. The patient is status post cardiac cath. SUGGESTIONS: 1. Continue current management. 2. Peripheral hyperalimentation with albumin IV. 3. No aggressive GI workup in the meantime due to the patient's clinical presentation. Further recommendation to follow. Sarah Fowler MD
--- NOTE | 2018-06-23 14:53 | CP.PCM.PN ---
Subjective - Date & Time of Evaluation Date of Evaluation: 06/23/18 Time of Evaluation: 14:52 - Subjective Subjective: Nephrology Consultation Note: Assessment: critical Uncontrolled severe HTN with emergency NSTEMI, acute/sub-acute CVA Diabetic chronic Kidney Disease (E11.22) Hypertensive Chronic Kidney Disease (I12.9) Chronic Kidney Disease (N18.1) Stage 1 with ? mg proteinuria (R80.9) likely due to DM/HTN rectal CA, vitiligo stable b/l simple and complex renal cysts mild to moderate LVH Plan No acute need for renal replacement therapy at this time. Hypertension control with meds as ordered. Maintain hemodynamics stable. Avoid hypotension. Patient on losartan. norvasc 10 mg/d. labetalol 100 mg tid. will target gradual decrease in BP considering CVA Monitor Input/Output, daily weights and renal function with basic metabolic panel Neuro and critical care following. consider to d/c IVF Check urine analysis, spot protein/creatinine, albumin/creatinine ratio Check for 25-OH vitamin D, TSH and Secondary HTN work up with plasma re florin/aldosterone, plasma metanephrine and renal artery Doppler to r/o renal artery stenosis Dose meds/antibiotics for GFR >60. Glycemic control Further work up/management as per primary team Thanks for allowing me to participate in care of your patient. Will follow patient with you. Please call if any Qs. had d/w team Dr Jonathan Casarez Office: [phone] Chief Complaint; dizziness Reason for consult: HTN management HPI: Pt is a 77 M with hx of diabetes Mellitus (10 years), hypertension (10 years) rectal CA, vitiligo presented with complaints of dizziness and generalized weakness. found to have severe uncontrolled HTN and acute/sub-acute CVA hence renal consulted for HTN management. pt says BP usually high. Denies OTC/herbal meds or NSAIDs No obvious episodes of low BP. ROS: s/p mannitol Cardiovascular: No chest pain. Pulmonary: feels shortness of breath Gastrointestinal: has epigastric abdominal pain No nausea. No vomiting. Genitourinary: No pain while urinating. Denies blood in urine. reports need to strain while urinate All other negative except as mentioned in HPI Physical Examination: General Appearance: Comfortable, in no acute respiratory distress, co-operative . Vitals reviewed and noted as below Head; Atraumatic, normocephalic ENT: no ulcers no thrush. Tongue is midline/dry. Oropharynx: no rash or ulcers. EYES: Pupils are equal, round and reactive to light accommodation. Eye muscles and extraocular movement intact. Sclera is anicteric. Neck; supple no lymphadenopathy, no thyromegaly or bruit Lungs: Normal respiratory rate/effort. Breath sounds bilateral somewhat reduced at bases Heart: Normal rate. s1s2 normal. No rub or gallop. Extremities: no edema. No varicose veins Neurological: Patient is alert, awake and oriented to person, place and time. Strength bilateral appropriate and equal Skin: Warm and dry. Normal turgor. No rash. Palpitation: Normal elasticity for age. vitiligo changes+ Abdomen: Abdomen is soft. Bowel sounds +. There is no abdominal tenderness, no guarding/rigidity no organomegaly. old scars+ Psych: limited insight and normal affect/mood MSK: no joint tenderness or swelling. Digits and nails normal, no deformity : kidney or bladder not palpable Labs/imaging reviewed. Past medical history, past surgical history, family history, social history, allergy reviewed and noted as below Family hx: no hx of CKD. Rest non-contributory work up: UA 2+ protein mild to moderate LVH on echo renal imaging b/l simple and complex cyst, chronic adrenal wnl Objective - Vital Signs/Intake and Output Vital Signs (last 24 hours): Temp Pulse Resp BP Pulse Ox 97 F L 63 14 132/54 L 99 06/23/18 12:00 06/23/18 12:58 06/23/18 12:58 06/23/18 12:58 06/23/18 12:58 Intake and Output: 06/23/18 06/23/18 06:59 18:59 Intake Total 1880 950 Output Total 1500 400 Balance 380 550 - Medications Medications: Current Medications Acetaminophen (Tylenol 325mg Tab) 650 mg PO Q6 PRN PRN Reason: Headache Amlodipine Besylate (Norvasc) 10 mg PO DAILY [facility] Last Admin: 06/23/18 11:05 Dose: 10 mg Aspirin (Aspirin Chewable) 81 mg PO DAILY [facility] Last Admin: 06/22/18 09:19 Dose: 81 mg Docusate Sodium (Colace) 100 mg PO BID [facility] Stop: 06/25/18 10:01 Enoxaparin Sodium (Lovenox) 30 mg SC DAILY [facility] Last Admin: 06/22/18 09:20 Dose: 30 mg Famotidine (Pepcid) 20 mg PO BID [facility] Last Admin: 06/23/18 09:05 Dose: 20 mg Hydralazine HCl (Apresoline) 25 mg PO Q4 PRN PRN Reason: SEE DOSE INSTRUCTIONS Last Admin: 06/23/18 05:32 Dose: 25 mg Metronidazole (Flagyl) 500 mg in 100 mls @ 100 mls/hr IVPB Q8H [facility]; Protocol Last Admin: 06/23/18 11:34 Dose: 100 mls/hr Insulin Aspart (Novolog) 0 unit SC ACHS [facility]; Protocol Last Admin: 06/23/18 11:42 Dose: 3 units Labetalol HCl (Trandate) 100 mg PO Q8H [facility] Losartan Potassium (Cozaar) 100 mg PO DAILY [facility] Last Admin: 06/23/18 09:04 Dose: 100 mg Ondansetron HCl (Zofran Inj) 4 mg IVP Q6H PRN PRN Reason: Nausea/Vomiting Rosuvastatin Calcium (Crestor) 2.5 mg PO HS [facility] Last Admin: 06/22/18 22:32 Dose: 2.5 mg Sitagliptin Phosphate (Januvia) 100 mg PO DAILY [facility] Last Admin: 06/23/18 09:05 Dose: 100 mg - Labs Labs: 06/23/18 06:00 06/23/18 06:00 PT 10.9 SECONDS (9.7-12.2) 06/19/18 14:09 INR 1.0 06/19/18 14:09 APTT 77 SECONDS (21-34) H D 06/20/18 08:23
--- NOTE | 2018-06-23 19:54 | CARD ---
APPROVED REPORT Date of service: 06/22/2018 EKG Measurement Heart [id number] <Conclusion> Normal sinus rhythm Right bundle branch block T wave abnormality, consider inferior ischemia Abnormal ECG
--- NOTE | 2018-06-23 19:55 | CARD ---
APPROVED REPORT Date of service: 06/22/2018 EKG Measurement Heart [id number] <Conclusion> Normal sinus rhythm Right bundle branch block T wave abnormality, consider inferior ischemia Abnormal ECG
[2018-06-23] MEDS: Rosuvastatin Calcium 2.5 mg Tab PO SCH (21:10)
--- NOTE | 2018-06-23 23:11 | CP.PCM.PN ---
Subjective - Date & Time of Evaluation Date of Evaluation: 06/23/18 Time of Evaluation: 14:05 - Subjective Subjective: Patient seen and evaluated in ICU Feels better Denies chest pain and dyspnea BP under control Review of Systems - Constitutional Constitutional: absent: Chills, Fever - EENT Eyes: absent: Blurred Vision - Cardiovascular Cardiovascular: absent: Chest Pain, Chest Pain at Rest, Dyspnea Additional comments: pinpoint pain around intercostal 5th space on mid clavicular side - Respiratory Respiratory: absent: Cough, Dyspnea, Wheezing - Gastrointestinal Gastrointestinal: absent: Abdominal Pain - Neurological Neurological: Dizziness. absent: Numbness - Psychiatric Psychiatric: absent: Confusion, Depression - Endocrine Endocrine: absent: Deepening of Voice, Polyuria Physical Exam - Constitutional Appears: Well, Non-toxic, No Acute Distress - Head Exam Head Exam: NORMAL INSPECTION - Eye Exam Eye Exam: EOMI, Normal appearance Pupil Exam: NORMAL ACCOMODATION - ENT Exam ENT Exam: Mucous Membranes Moist - Respiratory Exam Respiratory Exam: Clear to Auscultation Bilateral, NORMAL BREATHING PATTERN. absent: Rales, Rhonchi, Wheezes - Cardiovascular Exam Cardiovascular Exam: +S1, +S2. absent: Systolic Murmur - GI/Abdominal Exam GI & Abdominal Exam: Normal Bowel Sounds, Soft. absent: Distended, Firm, Guarding - Extremities Exam Extremities exam: Positive for: full ROM, normal inspection. Negative for: calf tenderness, pedal edema - Back Exam Back exam: absent: CVA tenderness (L), CVA tenderness (R) - Neurological Exam Neurological exam: Alert, Oriented x3 - Psychiatric Exam Psychiatric exam: Normal Affect, Normal Mood - Skin Skin Exam: Warm Additional comments: hypopigmentation through face, consistent with vitiligo Assessment & Plan - Assessment and Plan (Free Text) Assessment: 77 year old male with PMHx of HTN, DM, and colorectal cancer, who was admitted to telemetry on 06/19 for subacute CVA and NSTEMI (s/p cath RCA 50-55%, no stent r equired) . Patient was transferred to ICU following HTN emergency, now petechial hemorrhage of left cerebellum 1. Hypertensive Emergency 2. Subacute infarct of left cerebellum 3. Petechial hemorrhage of left cerebellum 4. NSTEMI Plan: Neuro - AAOx3 - CT 06/19: subacute infarct in left cerebellum; subacute to chronic infarct in right frontal lobe - Repeat CT 06/22: subacute left cerebellar hemispheric infarct with mass effect upon 4th ventricle and spinal canal; increase attentuation of cerebellar infarct consistent with petechial hemorrhage within infarct; no gross acute hemorrhage identified; mild hydrocephalus - Prevent HTN above 140 systolic - hold anticoagulation - F/u neuro recs - serum osmolality 322 - manitol 100 mg X 1, repeat osmolality in AM - F/u neurosurgery recs - no surgical intervention at this time - neurochecks Q1H, seizure, aspiration precautions Cardiac - Hypertension emergency, resolved - start Norvasc 10mg tomorrow - continue Cozaar 100mg daily, Hydralazine 25mg Q4 PRN - start Labetalol 100mg BID - NSTEMI s/p cardiac cath on 06/20 - EF normal, nonobstructive coronary arteries - Troponin (06/22) neg; positive on admission (0.137, 0.122, 0.125) - continue Crestor 2.5mg PO - hold ASA 81mg, Lovenox 30mg - f/u cardiac recs-- Dr. Sudarshan Eastman - ABG 7.38/33/90/21.2 - 98% on NC - CXR 06/22: mild venous congestion, diffuse increased interstitial marking; patchy increased marking in right infrahilar region - Ribs xray: no acute fracture GI - Dysphagia diet - Hx of colorectal cancer - CEA 1.5 - CA 19-9 6.8 - Zofran PRN for nausea - f/u GI recs-- Dr. Pollack Endo - Hx of Diabetes - Accuchecks - ISS ACHS - continue Januvia 100mg PO Renal - BUN/Cr 24/0.8 - continue to monitor - f/u nephro recs-- Dr. Casarez ID - Leukocytosis - WBC 21.3 today, up from 11.9 - Afebrile - Flagyl per GI - continue to monitor PPx - Pain ppx-- Tylenol PRN - DVT ppx-- SCDs, Lovenox on hold - GI ppx-- pepcid Objective - Vital Signs/Intake and Output Vital Signs (last 24 hours): Temp Pulse Resp BP Pulse Ox 97.7 F 69 11 L 158/54 H 100 06/23/18 20:00 06/23/18 22:00 06/23/18 22:00 06/23/18 21:51 06/23/18 22:00 Intake and Output: 06/23/18 06/24/18 18:59 06:59 Intake Total 1150 150 Output Total 600 400 Balance 550 -250 - Medications Medications: Current Medications Acetaminophen (Tylenol 325mg Tab) 650 mg PO Q6 PRN PRN Reason: Headache Amlodipine Besylate (Norvasc) 10 mg PO DAILY [facility] Last Admin: 06/23/18 11:05 Dose: 10 mg Aspirin (Aspirin Chewable) 81 mg PO DAILY [facility] Last Admin: 06/22/18 09:19 Dose: 81 mg Docusate Sodium (Colace) 100 mg PO BID [facility] Stop: 06/25/18 10:01 Last Admin: 06/23/18 17:37 Dose: 100 mg Enoxaparin Sodium (Lovenox) 30 mg SC DAILY [facility] Last Admin: 06/22/18 09:20 Dose: 30 mg Famotidine (Pepcid) 20 mg PO BID [facility] Last Admin: 06/23/18 17:37 Dose: 20 mg Hydralazine HCl (Apresoline) 25 mg PO Q4 PRN PRN Reason: SEE DOSE INSTRUCTIONS Last Admin: 06/23/18 05:32 Dose: 25 mg Metronidazole (Flagyl) 500 mg in 100 mls @ 100 mls/hr IVPB Q8H [facility]; Protocol Last Admin: 06/23/18 18:06 Dose: 100 mls/hr Insulin Aspart (Novolog) 0 unit SC ACHS [facility]; Protocol Last Admin: 06/23/18 21:12 Dose: Not Given Labetalol HCl (Trandate) 100 mg PO Q8H [facility] Last Admin: 06/23/18 21:10 Dose: Not Given Losartan Potassium (Cozaar) 100 mg PO DAILY [facility] Last Admin: 06/23/18 09:04 Dose: 100 mg Ondansetron HCl (Zofran Inj) 4 mg IVP Q6H PRN PRN Reason: Nausea/Vomiting Rosuvastatin Calcium (Crestor) 2.5 mg PO HS [facility] Last Admin: 06/23/18 21:10 Dose: 2.5 mg Sitagliptin Phosphate (Januvia) 100 mg PO DAILY [facility] Last Admin: 06/23/18 09:05 Dose: 100 mg - Labs Labs: 06/23/18 06:00 06/23/18 06:00 PT 10.9 SECONDS (9.7-12.2) 06/19/18 14:09 INR 1.0 06/19/18 14:09 APTT 77 SECONDS (21-34) H D 06/20/18 08:23
[2018-06-24] MEDS: metroNIDAZOLE IV 500 mg/100 ml 500 MG/100 ML BAG IVPB SCH ×3 (02:01→19:30)
[2018-06-24 06:10] LABS: HEMOGLOBIN 11.9 g/dL (12.0-18.0); MEAN CORPUSCULAR HEMOGLOBIN 19.1 pg (27.0-31.0); MEAN CORPUSCULAR HGB CONC 31.3 g/dL (33.0-37.0); PLATELET COUNT 246 K/uL (130-400); RBC 6.27 Mil/uL (4.40-5.90); RED CELL DISTRIBUTION WIDTH 19.1 % (11.5-14.5); WHITE BLOOD COUNT 11.6 K/uL (4.8-10.8)
[2018-06-24 06:31] LABS: ALB/GLOB RATIO 1.4 (1.0-2.1); ALBUMIN 3.8 g/dL (3.5-5.0); ALT/SGPT 16 U/L (21-72); AST/SGOT 26 U/L (17-59); BLOOD UREA NITROGEN 18 mg/dL (9-20); GFR NON-AFRICAN AMERICAN > 60
--- NOTE | 2018-06-24 07:12 | CP.CCUPN ---
<AraujoTamras M - Last Filed: 06/24/18 10:53> CCU Subjective - Physician Review Subjective (Free Text): Critical care progress note for Dr. Bowman Patient seen and examined at bedside. Overnight patient had BP elevated to 170s requiring hydralizine 25 mg PO X1. In AM patient has complaint of dizziness, similar as other days. Patient denies headaches, vision changes, chest pain, nausea, vomiting, diarrhea, fevers, chills. CCU Objective - Vital Signs / Intake & Output Vital Signs (Last 4 hours): Vital Signs Temp Pulse Resp BP Pulse Ox 06/24/18 06:00 76 12 97 06/24/18 05:51 147/60 06/24/18 05:16 84 13 167/77 H 98 06/24/18 05:00 82 19 99 06/24/18 04:10 168/72 H 06/24/18 04:00 98 F 72 12 100 Intake and Output (Last 8hrs): Intake & Output 06/23/18 06/24/18 06/24/18 22:59 06:59 14:59 Intake Total 350 150 Output Total 600 600 Balance -250 -450 Weight 130 lb Intake: Intake, IV Amount 100 100 Right Wrist 100 100 Oral 250 50 Output: Urine 600 600 Urine, Voided 600 600 - Physical Exam Head: Positive for: Atraumatic, Normocephalic Pupils: Positive for: PERRL Extroacular Muscles: Positive for: EOMI Conjunctiva: Positive for: Normal Mouth: Positive for: Moist Mucous Membranes Neck: Positive for: Normal Range of Motion Respiratory/Chest: Positive for: Clear to Auscultation Cardiovascular: Positive for: Murmurs, Normal S1, S2 Abdomen: Positive for: Normal Bowel Sounds. Negative for: Tenderness, Distention Upper Extremity: Negative for: Cyanosis, Edema Lower Extremity: Positive for: Normal Inspection. Negative for: Edema, CALF TENDERNESS Neurological: Positive for: GCS=15, CN II-XII Intact Skin: Positive for: Warm, Dry, Other (hypopigmentation of face/ upper body, consistent of vitiligo ) Psychiatric: Positive for: Alert, Oriented x 3 - Medications Active Medications: Active Medications Generic Name Dose Route Start Last Admin Trade Name Freq PRN Reason Stop Dose Admin Acetaminophen 650 mg 06/22/18 10:56 06/24/18 02:05 Tylenol 325mg Tab PO 650 mg Q6 PRN Administration Headache Amlodipine Besylate 10 mg 06/23/18 10:30 06/23/18 11:05 Norvasc PO 10 mg DAILY KELLEN Administration Aspirin 81 mg 06/20/18 10:00 06/22/18 09:19 Aspirin Chewable PO 81 mg DAILY KELLEN Administration Docusate Sodium 100 mg 06/23/18 18:00 06/23/18 17:37 Colace PO 06/25/18 10:01 100 mg BID KELLEN Administration Enoxaparin Sodium 30 mg 06/21/18 10:00 06/22/18 09:20 Lovenox SC 30 mg DAILY KELLEN Administration Famotidine 20 mg 06/22/18 11:45 06/23/18 17:37 Pepcid PO 20 mg BID KELLEN Administration Hydralazine HCl 25 mg 06/22/18 17:00 06/24/18 02:02 Apresoline PO 25 mg Q4 PRN Administration SEE DOSE INSTRUCTIONS Metronidazole 500 mg in 100 mls @ 100 mls/hr 06/22/18 11:00 06/24/18 02:01 Flagyl IVPB 100 mls/hr Q8H KELLEN Administration Protocol Insulin Aspart 0 unit 06/22/18 16:59 06/23/18 21:12 Novolog SC Not Given ACHS [facility] Protocol Labetalol HCl 100 mg 06/23/18 14:00 06/24/18 05:27 Trandate PO 100 mg Q8H KELLEN Administration Losartan Potassium 100 mg 06/22/18 17:01 06/23/18 09:04 Cozaar PO 100 mg DAILY KELLEN Administration Ondansetron HCl 4 mg 06/22/18 09:00 Zofran Inj IVP Q6H PRN Nausea/Vomiting Rosuvastatin Calcium 2.5 mg 06/20/18 22:00 06/23/18 21:10 Crestor PO 2.5 mg HS KELLEN Administration Sitagliptin Phosphate 100 mg 06/20/18 10:00 06/23/18 09:05 Januvia PO 100 mg DAILY KELLEN Administration - Patient Studies Lab Studies: Microbiology Studies 06/22/18 14:07 MRSA Culture (Admit) - Final Naris MRSA NOT DETECTED Lab Studies 06/24/18 06/24/18 06/24/18 Range/Units 06:02 06:00 06:00 WBC 11.6 H (4.8-10.8) K/uL RBC 6.27 H (4.40-5.90) Mil/uL Hgb 11.9 L (12.0-18.0) g/dL Hct 38.2 (35.0-51.0) % MCV 61.0 L (80.0-94.0) fL MCH 19.1 L (27.0-31.0) pg MCHC 31.3 L (33.0-37.0) g/dL RDW 19.1 H (11.5-14.5) % Plt Count 246 (130-400) K/uL MPV 9.0 (7.2-11.7) fL Neut % (Auto) (50.0-75.0) % Lymph % (Auto) (20.0-40.0) % [place] % (Auto) (0.0-10.0) % Eos % (Auto) (0.0-4.0) % Baso % (Auto) (0.0-2.0) % Neut # (Auto) (1.8-7.0) K/uL Lymph # (Auto) (1.0-4.3) K/uL [place] # (Auto) (0.0-0.8) K/uL Eos # (Auto) (0.0-0.7) K/uL Baso # (Auto) (0.0-0.2) K/uL Neutrophils % (Manual) (50-75) % Lymphocytes % (Manual) (20-40) % Monocytes % (Manual) (0-10) % Eosinophils % (Manual) (0-4) % Platelet Estimate (NORMAL) Polychromasia Hypochromasia (manual) Anisocytosis (manual) Microcytosis (manual) Target Cells Ovalocytes Schistocytes Sodium 139 (132-148) mmol/L Potassium 4.0 (3.6-5.2) mmol/L Chloride 107 (98-107) mmol/L Carbon Dioxide 21 L (22-30) mmol/L Anion Gap 15 (10-20) BUN 18 (9-20) mg/dL Creatinine 0.6 L (0.8-1.5) mg/dL Est GFR ( Amer) > 60 Est GFR (Non-Af Amer) > 60 POC Glucose (mg/dL) (65-110) mg/dL Random Glucose 160 H (75-110) mg/dL Serum Osmolality 302 H (272-300) mosm/kg Calcium 9.0 (8.6-10.4) mg/dl Phosphorus 2.9 (2.5-4.5) mg/dL Magnesium 1.9 (1.6-2.3) mg/dL Total Bilirubin 0.9 (0.2-1.3) mg/dL AST 26 (17-59) U/L ALT 16 L (21-72) U/L Alkaline Phosphatase 88 (38-126) U/L Total Protein 6.5 (6.3-8.3) g/dL Albumin 3.8 (3.5-5.0) g/dL Globulin 2.7 (2.2-3.9) gm/dL Albumin/Globulin Ratio 1.4 (1.0-2.1) 06/23/18 06/23/18 06/22/18 Range/Units 06:00 06:00 11:09 WBC (4.8-10.8) K/uL RBC (4.40-5.90) Mil/uL Hgb 11.5 L D (12.0-18.0) g/dL Hct (35.0-51.0) % MCV (80.0-94.0) fL MCH (27.0-31.0) pg MCHC (33.0-37.0) g/dL RDW (11.5-14.5) % Plt Count (130-400) K/uL MPV (7.2-11.7) fL Neut % (Auto) 88.0 H (50.0-75.0) % Lymph % (Auto) 8.0 L (20.0-40.0) % [place] % (Auto) 2.0 (0.0-10.0) % Eos % (Auto) 2.0 (0.0-4.0) % Baso % (Auto) 0.0 (0.0-2.0) % Neut # (Auto) 12.0 H (1.8-7.0) K/uL Lymph # (Auto) 1.0 (1.0-4.3) K/uL [place] # (Auto) 0.2 (0.0-0.8) K/uL Eos # (Auto) 0.2 (0.0-0.7) K/uL Baso # (Auto) 0.0 (0.0-0.2) K/uL Neutrophils % (Manual) 88 H (50-75) % Lymphocytes % (Manual) 8 L (20-40) % Monocytes % (Manual) 2 (0-10) % Eosinophils % (Manual) 2 (0-4) % Platelet Estimate Normal (NORMAL) Polychromasia Slight Hypochromasia (manual) Slight Anisocytosis (manual) Slight Microcytosis (manual) Slight Target Cells Slight Ovalocytes Slight Schistocytes Slight Sodium 140 (132-148) mmol/L Potassium 3.8 (3.6-5.2) mmol/L Chloride 109 H (98-107) mmol/L Carbon Dioxide 23 (22-30) mmol/L Anion Gap 12 (10-20) BUN 28 H (9-20) mg/dL Creatinine 0.9 (0.8-1.5) mg/dL Est GFR ( Amer) > 60 Est GFR (Non-Af Amer) > 60 POC Glucose (mg/dL) 192 H (65-110) mg/dL Random Glucose 174 H (75-110) mg/dL Serum Osmolality (272-300) mosm/kg Calcium 9.2 (8.6-10.4) mg/dl Phosphorus 3.0 (2.5-4.5) mg/dL Magnesium 2.2 (1.6-2.3) mg/dL Total Bilirubin 0.6 (0.2-1.3) mg/dL AST 26 (17-59) U/L ALT 14 L (21-72) U/L Alkaline Phosphatase 93 (38-126) U/L Total Protein 6.6 (6.3-8.3) g/dL Albumin 3.9 (3.5-5.0) g/dL Globulin 2.8 (2.2-3.9) gm/dL Albumin/Globulin Ratio 1.4 (1.0-2.1) /10/05 Range/Units 06:34 WBC (4.8-10.8) K/uL RBC (4.40-5.90) Mil/uL Hgb (12.0-18.0) g/dL Hct (35.0-51.0) % MCV (80.0-94.0) fL MCH (27.0-31.0) pg MCHC (33.0-37.0) g/dL RDW (11.5-14.5) % Plt Count (130-400) K/uL MPV (7.2-11.7) fL Neut % (Auto) (50.0-75.0) % Lymph % (Auto) (20.0-40.0) % [place] % (Auto) (0.0-10.0) % Eos % (Auto) (0.0-4.0) % Baso % (Auto) (0.0-2.0) % Neut # (Auto) (1.8-7.0) K/uL Lymph # (Auto) (1.0-4.3) K/uL [place] # (Auto) (0.0-0.8) K/uL Eos # (Auto) (0.0-0.7) K/uL Baso # (Auto) (0.0-0.2) K/uL Neutrophils % (Manual) (50-75) % Lymphocytes % (Manual) (20-40) % Monocytes % (Manual) (0-10) % Eosinophils % (Manual) (0-4) % Platelet Estimate (NORMAL) Polychromasia Hypochromasia (manual) Anisocytosis (manual) Microcytosis (manual) Target Cells Ovalocytes Schistocytes Sodium (132-148) mmol/L Potassium (3.6-5.2) mmol/L Chloride (98-107) mmol/L Carbon Dioxide (22-30) mmol/L Anion Gap (10-20) BUN (9-20) mg/dL Creatinine (0.8-1.5) mg/dL Est GFR ( Amer) Est GFR (Non-Af Amer) POC Glucose (mg/dL) 174 H (65-110) mg/dL Random Glucose (75-110) mg/dL Serum Osmolality (272-300) mosm/kg Calcium (8.6-10.4) mg/dl Phosphorus (2.5-4.5) mg/dL Magnesium (1.6-2.3) mg/dL Total Bilirubin (0.2-1.3) mg/dL AST (17-59) U/L ALT (21-72) U/L Alkaline Phosphatase (38-126) U/L Total Protein (6.3-8.3) g/dL Albumin (3.5-5.0) g/dL Globulin (2.2-3.9) gm/dL Albumin/Globulin Ratio (1.0-2.1) Laboratory Results - last 24 hr 06/22/18 06/22/18 06/23/18 06:34 11:09 06:00 WBC RBC Hgb 11.5 L D Hct MCV MCH MCHC RDW Plt Count MPV Neut % (Auto) 88.0 H Lymph % (Auto) 8.0 L [place] % (Auto) 2.0 Eos % (Auto) 2.0 Baso % (Auto) 0.0 Neut # (Auto) 12.0 H Lymph # (Auto) 1.0 [place] # (Auto) 0.2 Eos # (Auto) 0.2 Baso # (Auto) 0.0 Neutrophils % (Manual) 88 H Lymphocytes % (Manual) 8 L Monocytes % (Manual) 2 Eosinophils % (Manual) 2 Platelet Estimate Normal Polychromasia Slight Hypochromasia (manual) Slight Anisocytosis (manual) Slight Microcytosis (manual) Slight Target Cells Slight Ovalocytes Slight Schistocytes Slight Sodium Potassium Chloride Carbon Dioxide Anion Gap BUN Creatinine Est GFR ( Amer) Est GFR (Non-Af Amer) POC Glucose (mg/dL) 174 H 192 H Random Glucose Serum Osmolality Calcium Phosphorus Magnesium Total Bilirubin AST ALT Alkaline Phosphatase Total Protein Albumin Globulin Albumin/Globulin Ratio 06/23/18 06/24/18 06/24/18 06:00 06:00 06:00 WBC RBC Hgb Hct MCV MCH MCHC RDW Plt Count MPV Neut % (Auto) Lymph % (Auto) [place] % (Auto) Eos % (Auto) Baso % (Auto) Neut # (Auto) Lymph # (Auto) [place] # (Auto) Eos # (Auto) Baso # (Auto) Neutrophils % (Manual) Lymphocytes % (Manual) Monocytes % (Manual) Eosinophils % (Manual) Platelet Estimate Polychromasia Hypochromasia (manual) Anisocytosis (manual) Microcytosis (manual) Target Cells Ovalocytes Schistocytes Sodium 140 139 Potassium 3.8 4.0 Chloride 109 H 107 Carbon Dioxide 23 21 L Anion Gap 12 15 BUN 28 H 18 Creatinine 0.9 0.6 L Est GFR ( Amer) > 60 > 60 Est GFR (Non-Af Amer) > 60 > 60 POC Glucose (mg/dL) Random Glucose 174 H 160 H Serum Osmolality 302 H Calcium 9.2 9.0 Phosphorus 3.0 2.9 Magnesium 2.2 1.9 Total Bilirubin 0.6 0.9 AST 26 26 ALT 14 L 16 L Alkaline Phosphatase 93 88 Total Protein 6.6 6.5 Albumin 3.9 3.8 Globulin 2.8 2.7 Albumin/Globulin Ratio 1.4 1.4 06/24/18 06:02 WBC 11.6 H RBC 6.27 H Hgb 11.9 L Hct 38.2 MCV 61.0 L MCH 19.1 L MCHC 31.3 L RDW 19.1 H Plt Count 246 MPV 9.0 Neut % (Auto) Lymph % (Auto) [place] % (Auto) Eos % (Auto) Baso % (Auto) Neut # (Auto) Lymph # (Auto) [place] # (Auto) Eos # (Auto) Baso # (Auto) Neutrophils % (Manual) Lymphocytes % (Manual) Monocytes % (Manual) Eosinophils % (Manual) Platelet Estimate Polychromasia Hypochromasia (manual) Anisocytosis (manual) Microcytosis (manual) Target Cells Ovalocytes Schistocytes Sodium Potassium Chloride Carbon Dioxide Anion Gap BUN Creatinine Est GFR ( Amer) Est GFR (Non-Af Amer) POC Glucose (mg/dL) Random Glucose Serum Osmolality Calcium Phosphorus Magnesium Total Bilirubin AST ALT Alkaline Phosphatase Total Protein Albumin Globulin Albumin/Globulin Ratio Radiology Impressions: Radiology Impressions Head CT 06/23/18 09:00 IMPRESSION: No acute intracranial hemorrhage. Subacute infarct left cerebellar hemisphere. Tiny acute-subacute infarct right superior basal ganglia/coronal radiata junction less well seen. Stable right frontal lobe infarct, chronic white matter and basal nuclei ischemic changes. Note that all these findings seen to better advantage on prior MRI. Moderate generalized volume loss. Fingerstick Blood Sugar Results: 150 Review of Systems - Constitutional Constitutional: absent: Fever, Chills, Sweats, Weakness - EENT Eyes: UNREMARKABLE. absent: Blurred Vision, Discharge Ears: UNREMARKABLE Nose/Mouth/Throat: UNREMARKABLE. absent: Dry Mouth - Cardiovascular Cardiovascular: UNREMARKABLE. absent: Chest Pain, Dyspnea - Respiratory Respiratory: UNREMARKABLE. absent: Cough, Dyspnea - Gastrointestinal Gastrointestinal: UNREMARKABLE. absent: Bloating, Cramping, Diarrhea - Musculoskeletal Musculoskeletal: UNREMARKABLE. absent: Abnormal Gait, Joint Swelling - Integumentary Integumentary: UNREMARKABLE. absent: Erythema, Non-Healing Lesions - Neurological Neurological: Dizziness. absent: Numbness, Headaches, Paresthesias - Psychiatric Psychiatric: UNREMARKABLE. absent: Behavioral Changes, Depression - Endocrine Endocrine: UNREMARKABLE. absent: Deepening of Voice, Heat Intolorance Critical Care Progress Note - Prophylaxis GI Prophylaxis GI: Pepsid - Prophylaxis DVT Prophylaxis DVT: Not Indicated - Nutrition Nutrition: Nutrition Category Date Time Status Mechanically altered [Dysphagia/Modified Consistency Diets 06/21/18 Lunch Active Diet] [DIET] Assessment/Plan - Assessment and Plan (Free Text) Assessment: 77 year old male with PMHx of HTN, DM, and colorectal cancer, who was admitted to telemetry on 06/19 for subacute CVA and NSTEMI (s/p cath RCA 50-55%, no stent required). Patient was transferred to ICU following HTN emergency, petechial hemorrhage of left cerebellum per CT on 06/22. Repeat Ct showing resolution. With persistent dizziness, repeat CT head as recommended by neurology. Will continue BP trend. Possible transfer to tele 06/25 pending vitals. 1. Hypertensive Emergency 2. Subacute infarct of left cerebellum 3. Petechial hemorrhage of left cerebellum 4. Dizziness Plan: Neuro - AAOx3 - CT head 06/19: subacute infarct in left cerebellum; subacute to chronic infarct in right frontal lobe - CT head 06/22: subacute left cerebellar hemispheric infarct with mass effect upon 4th ventricle and spinal canal; increase attentuation of cerebellar infarct consistent with petechial hemorrhage within infarct; no gross acute hemorrhage identified; mild hydrocephalus - F/u CT head 06/24 - Prevent HTN above 140 systolic - hold anticoagulation - F/u neuro recs - continue to monitor - F/u EEG - F/u neurosurgery recs - no surgical intervention at this time - neurochecks Q4H, seizure, aspiration precautions Cardiac - Hypertension emergency, resolved - Norvasc 10 mg PO daily - Cozaar 100mg daily, Hydralazine 25mg Q4 PRN - Labetalol 100mg Q8H - NSTEMI s/p cardiac cath on 06/20 - EF normal, nonobstructive coronary arteries - Troponin (06/22) neg; positive on admission (0.137, 0.122, 0.125) - continue Crestor 2.5mg PO - hold ASA 81mg, Lovenox 30mg - f/u cardiac recs-- Dr. Sudarshan Eastman - ABG 7.38/33/90/21.2 06/22 - 98% on NC - CXR 06/22: mild venous congestion, diffuse increased interstitial marking; patchy increased marking in right infrahilar region - Ribs xray: no acute fracture GI - PT/ - Dysphagia diet - Hx of colorectal cancer - CEA 1.5 - CA 19-9 6.8 - Zofran PRN for nausea - f/u GI recs-- Dr. Pollack Endo - Hx of Diabetes - Accuchecks - ISS ACHS - continue Januvia 100mg PO Renal - BUN/Cr 21/0.9 - continue to monitor - f/u nephro recs-- Dr. Casarez ID - Leukocytosis - WBC downtrneding, 21 -> 131 - Afebrile - Flagyl per GI - continue to monitor PPx - Pain ppx-- Tylenol PRN - DVT ppx-- SCDs, Lovenox on hold - GI ppx-- pepcid - PT/OT <Latef,Elia M - Last Filed: 06/26/18 11:56> CCU Objective - Vital Signs / Intake & Output Vital Signs (Last 4 hours): Vital Signs Temp Pulse Resp BP Pulse Ox 06/26/18 11:00 97.7 F 74 17 143/62 98 06/26/18 10:23 75 13 139/54 L 100 06/26/18 10:00 66 11 L 100 06/26/18 09:22 73 16 143/59 L 100 06/26/18 09:00 68 20 99 06/26/18 08:23 65 25 H 132/59 L 99 06/26/18 08:00 67 19 98 Intake and Output (Last 8hrs): Intake & Output 06/25/18 06/26/18 06/26/18 21:59 06:59 14:59 Intake Total 820 Output Total 300 Balance 520 Weight Intake: Intake, IV Amount 100 Right Wrist 100 left wrist 0 Oral 720 Output: Urine 300 Urine, Voided 300 Stool Other: # Voids Urine, Voided 1 # Bowel Movements 1 - Medications Active Medications: Active Medications Generic Name Dose Route Start Last Admin Trade Name Freq PRN Reason Stop Dose Admin Acetaminophen 650 mg 03/06/19 10:56 06/24/18 02:05 Tylenol 325mg Tab PO 650 mg Q6 PRN Administration Headache Amlodipine Besylate 10 mg 06/23/18 10:30 06/26/18 09:22 Norvasc PO 10 mg DAILY KELLEN Administration Aspirin 81 mg 06/20/18 10:00 06/22/18 09:19 Aspirin Chewable PO 81 mg DAILY KELLEN Administration Enoxaparin Sodium 30 mg 06/21/18 10:00 06/22/18 09:20 Lovenox SC 30 mg DAILY KELLEN Administration Famotidine 20 mg 06/22/18 11:45 06/26/18 09:23 Pepcid PO 20 mg BID KELLEN Administration Hydralazine HCl 25 mg 06/22/18 17:00 06/25/18 09:36 Apresoline PO 25 mg Q4 PRN Administration SEE DOSE INSTRUCTIONS Metronidazole 500 mg in 100 mls @ 100 mls/hr 06/22/18 11:00 06/26/18 10:50 Flagyl IVPB 100 mls/hr Q8H KELLEN Administration Protocol Insulin Aspart 0 unit 06/22/18 16:59 06/26/18 07:44 Novolog SC 3 units ACHS KELLEN Administration Protocol Labetalol HCl 100 mg 06/23/18 14:00 06/26/18 05:56 Trandate PO 100 mg Q8H KELLEN Administration Losartan Potassium 100 mg 06/22/18 17:01 06/26/18 09:23 Cozaar PO 100 mg DAILY KELLEN Administration Ondansetron HCl 4 mg 06/22/18 09:00 Zofran Inj IVP Q6H PRN Nausea/Vomiting Rosuvastatin Calcium 2.5 mg 06/20/18 22:00 06/25/18 22:22 Crestor PO 2.5 mg HS KELLEN Administration Sitagliptin Phosphate 100 mg 06/20/18 10:00 06/26/18 09:23 Januvia PO 100 mg DAILY KELLEN Administration - Patient Studies Lab Studies: Lab Studies 06/26/18 06/26/18 06/26/18 Range/Units 06:24 06:24 06:23 WBC 10.7 (4.8-10.8) K/uL RBC 6.08 H (4.40-5.90) Mil/uL Hgb 11.7 L (12.0-18.0) g/dL Hct 37.5 (35.0-51.0) % MCV 61.6 L (80.0-94.0) fL MCH 19.2 L (27.0-31.0) pg MCHC 31.2 L (33.0-37.0) g/dL RDW 19.3 H (11.5-14.5) % Plt Count 204 (130-400) K/uL MPV 9.1 (7.2-11.7) fL Neut % (Auto) 60.0 (50.0-75.0) % Lymph % (Auto) 22.0 (20.0-40.0) % [place] % (Auto) 16.0 H (0.0-10.0) % Eos % (Auto) 2.0 (0.0-4.0) % Baso % (Auto) 0.0 (0.0-2.0) % Neut # (Auto) 6.4 (1.8-7.0) K/uL Lymph # (Auto) 2.4 (1.0-4.3) K/uL [place] # (Auto) 1.7 H (0.0-0.8) K/uL Eos # (Auto) 0.2 (0.0-0.7) K/uL Baso # (Auto) 0.0 (0.0-0.2) K/uL Sodium 136 (132-148) mmol/L Potassium 3.5 L (3.6-5.2) mmol/L Chloride 105 (98-107) mmol/L Carbon Dioxide 24 (22-30) mmol/L Anion Gap 10 (10-20) BUN 16 (9-20) mg/dL Creatinine 0.6 L (0.8-1.5) mg/dL Est GFR ( Amer) > 60 Est GFR (Non-Af Amer) > 60 POC Glucose (mg/dL) (65-110) mg/dL Random Glucose 128 H (75-110) mg/dL Serum Osmolality 298 (272-300) mosm/kg Calcium 8.9 (8.6-10.4) mg/dl Phosphorus 2.7 (2.5-4.5) mg/dL Magnesium 1.9 (1.6-2.3) mg/dL Total Bilirubin 0.5 (0.2-1.3) mg/dL AST 19 (17-59) U/L ALT 14 L D (21-72) U/L Alkaline Phosphatase 76 (38-126) U/L Total Protein 6.0 L (6.3-8.3) g/dL Albumin 3.4 L (3.5-5.0) g/dL Globulin 2.7 (2.2-3.9) gm/dL Albumin/Globulin Ratio 1.3 (1.0-2.1) Plasma Metanephrine (<=57) pg/mL Plasma Normetanephrine (<=148) pg/mL Plas Total Metaneph (<=205) pg/mL 06/25/18 06/22/18 Range/Units 11:25 07:14 WBC (4.8-10.8) K/uL RBC (4.40-5.90) Mil/uL Hgb (12.0-18.0) g/dL Hct (35.0-51.0) % MCV (80.0-94.0) fL MCH (27.0-31.0) pg MCHC (33.0-37.0) g/dL RDW (11.5-14.5) % Plt Count (130-400) K/uL MPV (7.2-11.7) fL Neut % (Auto) (50.0-75.0) % Lymph % (Auto) (20.0-40.0) % [place] % (Auto) (0.0-10.0) % Eos % (Auto) (0.0-4.0) % Baso % (Auto) (0.0-2.0) % Neut # (Auto) (1.8-7.0) K/uL Lymph # (Auto) (1.0-4.3) K/uL [place] # (Auto) (0.0-0.8) K/uL Eos # (Auto) (0.0-0.7) K/uL Baso # (Auto) (0.0-0.2) K/uL Sodium (132-148) mmol/L Potassium (3.6-5.2) mmol/L Chloride (98-107) mmol/L Carbon Dioxide (22-30) mmol/L Anion Gap (10-20) BUN (9-20) mg/dL Creatinine (0.8-1.5) mg/dL Est GFR ( Amer) Est GFR (Non-Af Amer) POC Glucose (mg/dL) 258 H (65-110) mg/dL Random Glucose (75-110) mg/dL Serum Osmolality (272-300) mosm/kg Calcium (8.6-10.4) mg/dl Phosphorus (2.5-4.5) mg/dL Magnesium (1.6-2.3) mg/dL Total Bilirubin (0.2-1.3) mg/dL AST (17-59) U/L ALT (21-72) U/L Alkaline Phosphatase (38-126) U/L Total Protein (6.3-8.3) g/dL Albumin (3.5-5.0) g/dL Globulin (2.2-3.9) gm/dL Albumin/Globulin Ratio (1.0-2.1) Plasma Metanephrine <25 (<=57) pg/mL Plasma Normetanephrine <25 (<=148) pg/mL Plas Total Metaneph <50 (<=205) pg/mL Laboratory Results - last 24 hr 06/22/18 06/25/18 06/26/18 07:14 11:25 06:23 WBC 10.7 RBC 6.08 H Hgb 11.7 L Hct 37.5 MCV 61.6 L MCH 19.2 L MCHC 31.2 L RDW 19.3 H Plt Count 204 MPV 9.1 Neut % (Auto) 60.0 Lymph % (Auto) 22.0 [place] % (Auto) 16.0 H Eos % (Auto) 2.0 Baso % (Auto) 0.0 Neut # (Auto) 6.4 Lymph # (Auto) 2.4 [place] # (Auto) 1.7 H Eos # (Auto) 0.2 Baso # (Auto) 0.0 Sodium Potassium Chloride Carbon Dioxide Anion Gap BUN Creatinine Est GFR ( Amer) Est GFR (Non-Af Amer) POC Glucose (mg/dL) 258 H Random Glucose Serum Osmolality Calcium Phosphorus Magnesium Total Bilirubin AST ALT Alkaline Phosphatase Total Protein Albumin Globulin Albumin/Globulin Ratio Plasma Metanephrine <25 Plasma Normetanephrine <25 Plas Total Metaneph <50 06/26/18 06/26/18 06:24 06:24 WBC RBC Hgb Hct MCV MCH MCHC RDW Plt Count MPV Neut % (Auto) Lymph % (Auto) [place] % (Auto) Eos % (Auto) Baso % (Auto) Neut # (Auto) Lymph # (Auto) [place] # (Auto) Eos # (Auto) Baso # (Auto) Sodium 136 Potassium 3.5 L Chloride 105 Carbon Dioxide 24 Anion Gap 10 BUN 16 Creatinine 0.6 L Est GFR ( Amer) > 60 Est GFR (Non-Af Amer) > 60 POC Glucose (mg/dL) Random Glucose 128 H Serum Osmolality 298 Calcium 8.9 Phosphorus 2.7 Magnesium 1.9 Total Bilirubin 0.5 AST 19 ALT 14 L D Alkaline Phosphatase 76 Total Protein 6.0 L Albumin 3.4 L Globulin 2.7 Albumin/Globulin Ratio 1.3 Plasma Metanephrine Plasma Normetanephrine Plas Total Metaneph Critical Care Progress Note - Nutrition Nutrition: Nutrition Category Date Time Status Mechanically altered [Dysphagia/Modified Consistency Diets 06/21/18 Lunch Active Diet] [DIET] Attending/Attestation - Attestation I have personally seen and examined this patient.: Yes I have fully participated in the care of the patient.: Yes I have reviewed all pertinent clinical information: Yes Notes (Text): The Patient was seen and examined at the bedside, Medical records reviewed, and management issues were discussed and formulated with the house staff. I have reviewed all the relevant clinical, laboratory, hemodynamic, radiographic data and medications Events reviewed Pain issues, skin care, head of the bed elevation, glycemic control were addressed. Agree with above resident's assessment and treatment plans of care as transcribed in Dr. Araujo's note.
[2018-06-24] MEDS: (Novolog) Insulin Aspart, Recombinant 100 u/ml 10 ml vial SC SCH ×4 (08:00→22:34)
[2018-06-24 08:23] LABS: LYMPH # 0.2 K/uL (1.0-4.3); NEUT # 0.8 K/uL (1.8-7.0); NRBC % 11.6 % (0.0-2.0)
[2018-06-24 08:24] LABS: BANDS 3 % (0-2); LYMPHOCYTE 6 % (20-40); MONOCYTE 2 % (0-10); NEUTROPHIL 89 % (50-75); TOTAL CELLS COUNTED 100
[2018-06-24 08:25] LABS: ANISOCYTOSIS MODERATE; MICROCYTOSIS MODERATE; PLATELET ESTIMATE NORMAL (NORMAL)
[2018-06-24 08:26] LABS: OVALOCYTES SLIGHT; POIKILOCYTOSIS SLIGHT; TARGET CELLS SLIGHT
--- NOTE | 2018-06-24 10:03 | PN ---
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 PHYSICAL EXAMINATION: VITAL SIGNS: Blood pressure 147/60, mean arterial pressure of 89, respiratory rate 12-14, pulse rate 76 regular. GENERAL: The patient is arousable. He has become little bit lethargic, may be he woke up from sleep. He claims dizziness is recurrent. Examination shows left appendicular dysmetria. Gait deferred at this time. RECOMMENDATION: The patient did have followup CT of the head yesterday, which does not show any further progression of the stroke, which was seen they before yesterday. The patient's Mannitol was given. The patient did have a Mannitol dose to decrease ICP 24 hours ago. We will continue to observe him for now. If any symptoms gets worse, probably the patient may need another CT of the head to see any progression of his bleed and stroke. In the meantime, control the blood pressure as recommended. Salvatore Lyons MD
--- NOTE | 2018-06-24 11:49 | CP.PCM.PN ---
Subjective - Date & Time of Evaluation Date of Evaluation: 06/24/18 Time of Evaluation: 11:47 - Subjective Subjective: condition remains same. dizziness present. general debility. neuro eval noted. control bp. repeat ct head if needed. Objective - Vital Signs/Intake and Output Vital Signs (last 24 hours): Temp Pulse Resp BP Pulse Ox 98 F 61 13 151/61 H 98 06/24/18 08:00 06/24/18 09:21 06/24/18 09:21 06/24/18 09:21 06/24/18 09:21 Intake and Output: 06/24/18 06/24/18 06:59 18:59 Intake Total 300 480 Output Total 1000 200 Balance -700 280 - Medications Medications: Current Medications Acetaminophen (Tylenol 325mg Tab) 650 mg PO Q6 PRN PRN Reason: Headache Last Admin: 06/24/18 02:05 Dose: 650 mg Amlodipine Besylate (Norvasc) 10 mg PO DAILY [facility] Last Admin: 06/24/18 10:05 Dose: 10 mg Aspirin (Aspirin Chewable) 81 mg PO DAILY [facility] Last Admin: 06/22/18 09:19 Dose: 81 mg Docusate Sodium (Colace) 100 mg PO BID [facility] Stop: 06/25/18 10:01 Last Admin: 06/24/18 10:04 Dose: 100 mg Enoxaparin Sodium (Lovenox) 30 mg SC DAILY [facility] Last Admin: 06/22/18 09:20 Dose: 30 mg Famotidine (Pepcid) 20 mg PO BID [facility] Last Admin: 06/24/18 10:20 Dose: 20 mg Hydralazine HCl (Apresoline) 25 mg PO Q4 PRN PRN Reason: SEE DOSE INSTRUCTIONS Last Admin: 06/24/18 02:02 Dose: 25 mg Metronidazole (Flagyl) 500 mg in 100 mls @ 100 mls/hr IVPB Q8H [facility]; Protocol Last Admin: 06/24/18 10:06 Dose: 100 mls/hr Insulin Aspart (Novolog) 0 unit SC ACHS [facility]; Protocol Last Admin: 06/24/18 08:00 Dose: 3 units Labetalol HCl (Trandate) 100 mg PO Q8H [facility] Last Admin: 06/24/18 05:27 Dose: 100 mg Losartan Potassium (Cozaar) 100 mg PO DAILY [facility] Last Admin: 06/24/18 10:04 Dose: 100 mg Ondansetron HCl (Zofran Inj) 4 mg IVP Q6H PRN PRN Reason: Nausea/Vomiting Rosuvastatin Calcium (Crestor) 2.5 mg PO HS [facility] Last Admin: 06/23/18 21:10 Dose: 2.5 mg Sitagliptin Phosphate (Januvia) 100 mg PO DAILY [facility] Last Admin: 06/24/18 10:00 Dose: 100 mg - Labs Labs: 06/24/18 06:02 06/24/18 06:00 PT 10.9 SECONDS (9.7-12.2) 06/19/18 14:09 INR 1.0 06/19/18 14:09 APTT 77 SECONDS (21-34) H D 06/20/18 08:23 - Constitutional Appears: No Acute Distress, Chronically Ill - Eye Exam Eye Exam: PERRL - ENT Exam ENT Exam: Mucous Membranes Moist - Respiratory Exam Respiratory Exam: Clear to Ausculation Bilateral, NORMAL BREATHING PATTERN - Cardiovascular Exam Cardiovascular Exam: REGULAR RHYTHM, +S1, +S2 - GI/Abdominal Exam GI & Abdominal Exam: Soft, Normal Bowel Sounds - Neurological Exam Neurological Exam: Alert, Awake, CN II-XII Intact, Normal Gait, Oriented x3 - Psychiatric Exam Psychiatric exam: Normal Affect, Normal Mood Assessment and Plan - Assessment and Plan (Free Text) Assessment: cva cerebeller. htn. Plan: ct present treatment.
--- NOTE | 2018-06-24 13:34 | CT ---
Date of service: 06/24/2018 PROCEDURE: CT HEAD WITHOUT CONTRAST. HISTORY: s/p stroke, persistent dizziness COMPARISON: 06/23/2018 TECHNIQUE: Axial computed tomography images were obtained through the head/brain without intravenous contrast. Radiation dose: Total exam DLP = 970.73 mGy-cm. This CT exam was performed using one or more of the following dose reduction techniques: Automated exposure control, adjustment of the mA and/or kV according to patient size, and/or use of iterative reconstruction technique. FINDINGS: BRAIN: There is interval evolution of large left posterior inferior cerebellar are PICA territory subacute infarction with hemorrhagic conversion. There is redemonstration of mass effect on the 4th ventricle, medulla oblongata, left middle cerebellar peduncle and left adam brayan without midline shift or herniation. There are moderate chronic microangiopathic changes. Again seen is cystic encephalomalacia in the right frontal lobe VENTRICLES: Persistent moderate obstructive hydrocephalus. There is mild age-related global parenchymal volume loss and proportionate enlargement of the ventricles and cortical sulci. CALVARIUM: There is no calvarial fracture or extracranial soft tissue swelling. PARANASAL SINUSES: Predominantly clear. MASTOID AIR CELLS: Predominantly clear. OTHER FINDINGS: None. IMPRESSION: Interval evolution of subacute left PICA territory infarction involving the posterior inferior cerebellar hemisphere with hemorrhagic conversion, mild local regional mass effect and moderate obstructive hydrocephalus without midline shift or herniation.
--- NOTE | 2018-06-24 14:17 | CP.PCM.PN ---
Subjective - Date & Time of Evaluation Date of Evaluation: 06/24/18 Time of Evaluation: 14:16 - Subjective Subjective: Nephrology Consultation Note: Assessment: critical Uncontrolled severe HTN with emergency NSTEMI, acute/sub-acute CVA Diabetic chronic Kidney Disease (E11.22) Hypertensive Chronic Kidney Disease (I12.9) Chronic Kidney Disease (N18.1) Stage 1 with ? mg proteinuria (R80.9) likely due to DM/HTN rectal CA, vitiligo stable b/l simple and complex renal cysts mild to moderate LVH Plan No acute need for renal replacement therapy at this time. Hypertension control with meds as ordered. Maintain hemodynamics stable. Avoid hypotension. Patient on losartan 100 mg/d. norvasc 10 mg/d. labetalol 100 mg tid. BP control acceptable on current regimen with some fluctuations noted will target gradual decrease in BP considering CVA Monitor Input/Output, daily weights and renal function with basic metabolic panel Neuro and critical care following. Check urine analysis, spot protein/creatinine, albumin/creatinine ratio Check for 25-OH vitamin D, TSH and Secondary HTN work up with plasma renin/aldosterone, plasma metanephrine and renal artery Doppler to r/o renal artery stenosis Dose meds/antibiotics for GFR >60. Glycemic control Further work up/management as per primary team Thanks for allowing me to participate in care of your patient. Will follow patient with you. Please call if any Qs. had d/w team Dr Jonathan Casarez Office: [phone] Chief Complaint; dizziness Reason for consult: HTN management HPI: Pt is a 77 M with hx of diabetes Mellitus (10 years), hypertension (10 years) rectal CA, vitiligo presented with complaints of dizziness and generalized weakness. found to have severe uncontrolled HTN and acute/sub-acute CVA hence renal consulted for HTN management. pt says BP usually high. Denies OTC/herbal meds or NSAIDs No obvious episodes of low BP. ROS: s/p mannitol Cardiovascular: No chest pain. Pulmonary: feels shortness of breath Gastrointestinal: has epigastric abdominal pain No nausea. No vomiting. Genitourinary: No pain while urinating. Denies blood in urine. reports need to strain while urinate All other negative except as mentioned in HPI Physical Examination: General Appearance: Comfortable, in no acute respiratory distress, co-operative . Vitals reviewed and noted as below Head; Atraumatic, normocephalic ENT: no ulcers no thrush. Tongue is midline/dry. Oropharynx: no rash or ulcers. EYES: Pupils are equal, round and reactive to light accommodation. Eye muscles and extraocular movement intact. Sclera is anicteric. Neck; supple no lymphadenopathy, no thyromegaly or bruit Lungs: Normal respiratory rate/effort. Breath sounds bilateral somewhat reduced at bases Heart: Normal rate. s1s2 normal. No rub or gallop. Extremities: no edema. No varicose veins Neurological: Patient is alert, awake and oriented to person, place and time. Strength bilateral appropriate and equal Skin: Warm and dry. Normal turgor. No rash. Palpitation: Normal elasticity for age. vitiligo changes+ Abdomen: Abdomen is soft. Bowel sounds +. There is no abdominal tenderness, no guarding/rigidity no organomegaly. old scars+ Psych: limited insight and normal affect/mood MSK: no joint tenderness or swelling. Digits and nails normal, no deformity : kidney or bladder not palpable Labs/imaging reviewed. Past medical history, past surgical history, family history, social history, allergy reviewed and noted as below Family hx: no hx of CKD. Rest non-contributory work up: UA 2+ protein mild to moderate LVH on echo renal imaging b/l simple and complex cyst, chronic adrenal wnl Objective - Vital Signs/Intake and Output Vital Signs (last 24 hours): Temp Pulse Resp BP Pulse Ox 98 F 65 10 L 164/64 H 100 06/24/18 08:00 06/24/18 13:00 06/24/18 13:00 06/24/18 12:45 06/24/18 11:00 Intake and Output: 06/24/18 06/24/18 06:59 18:59 Intake Total 300 1140 Output Total 1000 400 Balance -700 740 - Medications Medications: Current Medications Acetaminophen (Tylenol 325mg Tab) 650 mg PO Q6 PRN PRN Reason: Headache Last Admin: 06/24/18 02:05 Dose: 650 mg Amlodipine Besylate (Norvasc) 10 mg PO DAILY [facility] Last Admin: 06/24/18 10:05 Dose: 10 mg Aspirin (Aspirin Chewable) 81 mg PO DAILY [facility] Last Admin: 06/22/18 09:19 Dose: 81 mg Docusate Sodium (Colace) 100 mg PO BID [facility] Stop: 06/25/18 10:01 Last Admin: 06/24/18 10:04 Dose: 100 mg Enoxaparin Sodium (Lovenox) 30 mg SC DAILY [facility] Last Admin: 06/22/18 09:20 Dose: 30 mg Famotidine (Pepcid) 20 mg PO BID [facility] Last Admin: 06/24/18 10:20 Dose: 20 mg Hydralazine HCl (Apresoline) 25 mg PO Q4 PRN PRN Reason: SEE DOSE INSTRUCTIONS Last Admin: 06/24/18 02:02 Dose: 25 mg Metronidazole (Flagyl) 500 mg in 100 mls @ 100 mls/hr IVPB Q8H [facility]; Protocol Last Admin: 06/24/18 10:06 Dose: 100 mls/hr Insulin Aspart (Novolog) 0 unit SC ACHS [facility]; Protocol Last Admin: 06/24/18 12:25 Dose: 2 units Labetalol HCl (Trandate) 100 mg PO Q8H [facility] Last Admin: 06/24/18 05:27 Dose: 100 mg Losartan Potassium (Cozaar) 100 mg PO DAILY [facility] Last Admin: 06/24/18 10:04 Dose: 100 mg Ondansetron HCl (Zofran Inj) 4 mg IVP Q6H PRN PRN Reason: Nausea/Vomiting Rosuvastatin Calcium (Crestor) 2.5 mg PO HS [facility] Last Admin: 06/23/18 21:10 Dose: 2.5 mg Sitagliptin Phosphate (Januvia) 100 mg PO DAILY [facility] Last Admin: 06/24/18 10:00 Dose: 100 mg - Labs Labs: 06/24/18 06:02 06/24/18 06:00 PT 10.9 SECONDS (9.7-12.2) 06/19/18 14:09 INR 1.0 06/19/18 14:09 APTT 77 SECONDS (21-34) H D 06/20/18 08:23
[2018-06-24] MEDS ORDERED: niCARdipine IV 25 MG in Sodium Chloride 0.9% 240 ML IV SCH (14:30)
--- NOTE | 2018-06-24 16:10 | EEG ---
DATE: 06/23/2018 INTERPRETATIONS: This is a 16-channel electroencephalogram of awake and lethargic adult. During the study, photic stimulation was performed. Hyperventilation was not performed. The resting electroencephalogram consists of high amplitude 8-9 Hz alpha activities seen at parietal and occipital leads. Anterior fast activity superimposed with 2-3 Hz delta activity seen. This activity is followed with high amplitude theta activities seen, which is consistent with early drowsiness. The photic stimulation did not evoke driving response noted at 2-20 Hz. IMPRESSION: This is a normal electroencephalogram of awake and drowsy adult. During the study, neither electroencephalographic paroxysmal activities nor focal slowing noted. Salvatore Lyons MD
[2018-06-24] MEDS: Rosuvastatin Calcium 2.5 mg Tab PO SCH (22:31)
--- NOTE | 2018-06-24 23:23 | PN ---
DATE: 06/24/2018 SUBJECTIVE: This 77-year-old male seen and examined in rounds early today with a complaint of mild generalized weakness and dizziness with less oral intake recently. The entire chart is reviewed including but not limited to the most recent lab and radiology study results, current and the previous medication list. Today's white blood cells is 11.6, hemoglobin 11.9 with normal hematocrit but low indices with the latest blood glucose level of 211 with low CO2 content of 21 indicative of metabolic acidosis. Most recently done head CT scan again today showed interval evaluation of the subacute left PICA infarct involving the posterior inferior cerebellar hemisphere with hemorrhagic conversion. Rest of the finding as per the record. PHYSICAL EXAMINATION: GENERAL: A 77-year-old male, afebrile. VITAL SIGNS: Pulse of 68, respiratory rate 20-22, blood pressure of 140/64. HEENT: Showed pale dry oral mucoid membrane. Nonicteric sclerae. LUNGS: Few scattered crepitation. Decreased air entry at bases. HEART: Positive S1 and S2. ABDOMEN: Soft with mild generalized tenderness. No mass or organomegaly. No rebound tenderness or guarding. NEUROLOGIC: No reported new neurological deficits, sensory or motor or focal deficits. IMPRESSION: 1. Hypochromic microcytic anemia. 2. Brain infarction. 3. Re-exacerbation of peptic ulcer disease. 4. Poorly controlled hypertension. 5. Poorly controlled diabetes mellitus. 6. Reported recent history of dysphagia as most likely secondary to above. 7. History of colorectal cancer, by history. 8. Drug-induced coagulopathy. 9. Leukocytosis, persistent. SUGGESTIONS: 1. Agree with your plan. 2. Central versus peripheral hyperalimentation. 3. No aggressive GI workup in the meantime until the patient is more stable clinically. However, swallow evaluation to be considered at this point. Sarah Fowler MD
[2018-06-25] MEDS: metroNIDAZOLE IV 500 mg/100 ml 500 MG/100 ML BAG IVPB SCH ×3 (03:08→18:45)
[2018-06-25 06:33] LABS: HEMOGLOBIN 11.4 g/dL (12.0-18.0); MEAN CORPUSCULAR HEMOGLOBIN 19.1 pg (27.0-31.0); MEAN CORPUSCULAR HGB CONC 31.4 g/dL (33.0-37.0); RBC 5.98 Mil/uL (4.40-5.90); RED CELL DISTRIBUTION WIDTH 19.2 % (11.5-14.5); WHITE BLOOD COUNT 10.5 K/uL (4.8-10.8)
[2018-06-25 06:47] LABS: ALB/GLOB RATIO 1.2 (1.0-2.1); ALBUMIN 3.4 g/dL (3.5-5.0); ALT/SGPT 23 U/L (21-72); AST/SGOT 20 U/L (17-59); BLOOD UREA NITROGEN 20 mg/dL (9-20); CALCIUM 8.9 mg/dl (8.6-10.4); GFR NON-AFRICAN AMERICAN > 60
--- NOTE | 2018-06-25 08:15 | CP.PCM.PN ---
Subjective - Date & Time of Evaluation Date of Evaluation: 06/24/18 Time of Evaluation: 18:30 - Subjective Subjective: Patient seen and evaluated Denies chest pain and dyspnea Overnight events noted BP with better control now Review of Systems - Constitutional Constitutional: absent: Chills, Fever - EENT Eyes: absent: Blurred Vision - Cardiovascular Cardiovascular: absent: Chest Pain, Chest Pain at Rest, Dyspnea Additional comments: pinpoint pain around intercostal 5th space on mid clavicular side - Respiratory Respiratory: absent: Cough, Dyspnea, Wheezing - Gastrointestinal Gastrointestinal: absent: Abdominal Pain - Neurological Neurological: Dizziness. absent: Numbness - Psychiatric Psychiatric: absent: Confusion, Depression - Endocrine Endocrine: absent: Deepening of Voice, Polyuria Physical Exam - Constitutional Appears: Well, Non-toxic, No Acute Distress - Head Exam Head Exam: NORMAL INSPECTION - Eye Exam Eye Exam: EOMI, Normal appearance Pupil Exam: NORMAL ACCOMODATION - ENT Exam ENT Exam: Mucous Membranes Moist - Respiratory Exam Respiratory Exam: Clear to Auscultation Bilateral, NORMAL BREATHING PATTERN. absent: Rales, Rhonchi, Wheezes - Cardiovascular Exam Cardiovascular Exam: +S1, +S2. absent: Systolic Murmur - GI/Abdominal Exam GI & Abdominal Exam: Normal Bowel Sounds, Soft. absent: Distended, Firm, Guarding - Extremities Exam Extremities exam: Positive for: full ROM, normal inspection. Negative for: calf tenderness, pedal edema - Back Exam Back exam: absent: CVA tenderness (L), CVA tenderness (R) - Neurological Exam Neurological exam: Alert, Oriented x3 - Psychiatric Exam Psychiatric exam: Normal Affect, Normal Mood - Skin Skin Exam: Warm Additional comments: hypopigmentation through face, consistent with vitiligo Assessment & Plan - Assessment and Plan (Free Text) Assessment: 77 year old male with PMHx of HTN, DM, and colorectal cancer, who was admitted to telemetry on 06/19 for subacute CVA and NSTEMI (s/p cath RCA 50-55%, no stent required) . Patient was transferred to ICU following HTN emergency, now petechial hemorrhage of left cerebellum 1. Hypertensive Emergency-Now BP with better control 2. Subacute infarct of left cerebellum 3. Petechial hemorrhage of left cerebellum 4. NSTEMI-cath Non obstructive CAD Plan: Neuro - AAOx3 - CT 06/19: subacute infarct in left cerebellum; subacute to chronic infarct in right frontal lobe - Repeat CT 06/22: subacute left cerebellar hemispheric infarct with mass effect upon 4th ventricle and spinal canal; increase attentuation of cerebellar infarct consistent with petechial hemorrhage within infarct; no gross acute hemorrhage identified; mild hydrocephalus - Prevent HTN above 140 systolic - hold anticoagulation - F/u neuro recs - serum osmolality 322 - manitol 100 mg X 1, repeat osmolality in AM - F/u neurosurgery recs - no surgical intervention at this time - neurochecks Q1H, seizure, aspiration precautions Cardiac - Hypertension emergency, resolved - start Norvasc 10mg tomorrow - continue Cozaar 100mg daily, Hydralazine 25mg Q4 PRN - start Labetalol 100mg BID - NSTEMI s/p cardiac cath on 06/20 - EF normal, nonobstructive coronary arteries - Troponin (06/22) neg; positive on admission (0.137, 0.122, 0.125) - continue Crestor 2.5mg PO - hold ASA 81mg, Lovenox 30mg - f/u cardiac recs-- Dr. Sudarshan Eastman - ABG 7.38/33/90/21.2 - 98% on NC - CXR 06/22: mild venous congestion, diffuse increased interstitial marking; patchy increased marking in right infrahilar region - Ribs xray: no acute fracture GI - Dysphagia diet - Hx of colorectal cancer - CEA 1.5 - CA 19-9 6.8 - Zofran PRN for nausea - f/u GI recs-- Dr. Pollack Endo - Hx of Diabetes - Accuchecks - ISS ACHS - continue Januvia 100mg PO Renal - BUN/Cr 24/0.8 - continue to monitor - f/u nephro recs-- Dr. Casarez ID - Leukocytosis - WBC 21.3 today, up from 11.9 - Afebrile - Flagyl per GI - continue to monitor PPx - Pain ppx-- Tylenol PRN - DVT ppx-- SCDs, Lovenox on hold - GI ppx-- pepcid Objective - Vital Signs/Intake and Output Vital Signs (last 24 hours): Temp Pulse Resp BP Pulse Ox 98 F 73 14 152/68 H 98 06/25/18 04:00 06/25/18 07:00 06/25/18 07:00 06/25/18 06:22 06/25/18 07:00 Intake and Output: 06/25/18 06/25/18 06:59 18:59 Intake Total 750 0 Output Total 600 Balance 150 0 - Medications Medications: Current Medications Acetaminophen (Tylenol 325mg Tab) 650 mg PO Q6 PRN PRN Reason: Headache Last Admin: 06/24/18 02:05 Dose: 650 mg Amlodipine Besylate (Norvasc) 10 mg PO DAILY [facility] Last Admin: 06/24/18 10:05 Dose: 10 mg Aspirin (Aspirin Chewable) 81 mg PO DAILY [facility] Last Admin: 06/22/18 09:19 Dose: 81 mg Docusate Sodium (Colace) 100 mg PO BID [facility] Stop: 06/25/18 10:01 Last Admin: 06/24/18 18:50 Dose: 100 mg Enoxaparin Sodium (Lovenox) 30 mg SC DAILY [facility] Last Admin: 06/22/18 09:20 Dose: 30 mg Famotidine (Pepcid) 20 mg PO BID [facility] Last Admin: 06/24/18 18:51 Dose: 20 mg Hydralazine HCl (Apresoline) 25 mg PO Q4 PRN PRN Reason: SEE DOSE INSTRUCTIONS Last Admin: 06/24/18 02:02 Dose: 25 mg Metronidazole (Flagyl) 500 mg in 100 mls @ 100 mls/hr IVPB Q8H [facility]; Protocol Last Admin: 06/25/18 03:08 Dose: 100 mls/hr Insulin Aspart (Novolog) 0 unit SC ACHS [facility]; Protocol Last Admin: 06/24/18 22:34 Dose: Not Given Labetalol HCl (Trandate) 100 mg PO Q8H [facility] Last Admin: 06/25/18 06:26 Dose: 100 mg Losartan Potassium (Cozaar) 100 mg PO DAILY [facility] Last Admin: 06/24/18 10:04 Dose: 100 mg Ondansetron HCl (Zofran Inj) 4 mg IVP Q6H PRN PRN Reason: Nausea/Vomiting Rosuvastatin Calcium (Crestor) 2.5 mg PO HS [facility] Last Admin: 06/24/18 22:31 Dose: 2.5 mg Sitagliptin Phosphate (Januvia) 100 mg PO DAILY [facility] Last Admin: 06/24/18 10:00 Dose: 100 mg - Labs Labs: 06/25/18 06:19 06/25/18 06:17 PT 10.9 SECONDS (9.7-12.2) 06/19/18 14:09 INR 1.0 06/19/18 14:09 APTT 77 SECONDS (21-34) H D 06/20/18 08:23
[2018-06-25] MEDS: (Novolog) Insulin Aspart, Recombinant 100 u/ml 10 ml vial SC SCH ×4 (08:37→22:24)
[2018-06-25] MEDS ORDERED: Potassium Chloride 20 mEq/15 ml LIQ UD PO ONE (08:54)
[2018-06-25 09:18] LABS: MEAN CELL VOLUME 60.8 fL (80.0-94.0)
[2018-06-25 09:23] LABS: EOS # 0.3 K/uL (0.0-0.7); LYMPH # 1.6 K/uL (1.0-4.3); MONO # 0.9 K/uL (0.0-0.8); NEUT # 7.7 K/uL (1.8-7.0)
--- NOTE | 2018-06-25 11:08 | CP.PCM.PN ---
Subjective - Date & Time of Evaluation Date of Evaluation: 06/25/18 Time of Evaluation: 11:05 - Subjective Subjective: PT C/O DIZZINESS. VS WNL. CT HEAD SAME. NO CP. Objective - Vital Signs/Intake and Output Vital Signs (last 24 hours): Temp Pulse Resp BP Pulse Ox 98 F 73 18 150/50 L 100 06/25/18 04:00 06/25/18 11:00 06/25/18 11:00 06/25/18 10:22 06/25/18 11:00 Intake and Output: 06/25/18 06/25/18 06:59 18:59 Intake Total 750 400 Output Total 600 Balance 150 400 - Medications Medications: Current Medications Acetaminophen (Tylenol 325mg Tab) 650 mg PO Q6 PRN PRN Reason: Headache Last Admin: 06/24/18 02:05 Dose: 650 mg Amlodipine Besylate (Norvasc) 10 mg PO DAILY [facility] Last Admin: 06/25/18 09:36 Dose: 10 mg Aspirin (Aspirin Chewable) 81 mg PO DAILY [facility] Last Admin: 06/22/18 09:19 Dose: 81 mg Enoxaparin Sodium (Lovenox) 30 mg SC DAILY [facility] Last Admin: 06/22/18 09:20 Dose: 30 mg Famotidine (Pepcid) 20 mg PO BID [facility] Last Admin: 06/25/18 09:36 Dose: 20 mg Hydralazine HCl (Apresoline) 25 mg PO Q4 PRN PRN Reason: SEE DOSE INSTRUCTIONS Last Admin: 06/25/18 09:36 Dose: 25 mg Metronidazole (Flagyl) 500 mg in 100 mls @ 100 mls/hr IVPB Q8H [facility]; Protocol Last Admin: 06/25/18 03:08 Dose: 100 mls/hr Insulin Aspart (Novolog) 0 unit SC ACHS [facility]; Protocol Last Admin: 06/25/18 08:37 Dose: 2 units Labetalol HCl (Trandate) 100 mg PO Q8H [facility] Last Admin: 06/25/18 06:26 Dose: 100 mg Losartan Potassium (Cozaar) 100 mg PO DAILY [facility] Last Admin: 06/25/18 09:36 Dose: 100 mg Ondansetron HCl (Zofran Inj) 4 mg IVP Q6H PRN PRN Reason: Nausea/Vomiting Rosuvastatin Calcium (Crestor) 2.5 mg PO HS [facility] Last Admin: 06/24/18 22:31 Dose: 2.5 mg Sitagliptin Phosphate (Januvia) 100 mg PO DAILY [facility] Last Admin: 06/25/18 09:36 Dose: 100 mg - Labs Labs: 06/25/18 06:19 06/25/18 06:17 PT 10.9 SECONDS (9.7-12.2) 06/19/18 14:09 INR 1.0 06/19/18 14:09 APTT 77 SECONDS (21-34) H D 06/20/18 08:23 - Constitutional Appears: No Acute Distress, Chronically Ill - Eye Exam Eye Exam: PERRL - ENT Exam ENT Exam: Mucous Membranes Moist, Normal Exam - Respiratory Exam Respiratory Exam: Clear to Ausculation Bilateral, NORMAL BREATHING PATTERN - Cardiovascular Exam Cardiovascular Exam: REGULAR RHYTHM, +S1, +S2 - GI/Abdominal Exam GI & Abdominal Exam: Soft, Normal Bowel Sounds - Extremities Exam Extremities Exam: Full ROM, Normal Capillary Refill, Normal Inspection. absent: Joint Swelling, Pedal Edema - Back Exam Back Exam: NORMAL INSPECTION - Neurological Exam Neurological Exam: Alert, Awake, CN II-XII Intact, Normal Gait, Oriented x3 - Psychiatric Exam Psychiatric exam: Normal Affect, Normal Mood Assessment and Plan - Assessment and Plan (Free Text) Assessment: CEREBELLER CVA. HTN. Plan: FOR ICU CARE.
--- NOTE | 2018-06-25 12:38 | PN ---
DATE: 06/25/2018 LOCATION: ICU 3. SUBJECTIVE: This 77 years old male seen and examined early in rounds without reported significant clinical changes or active GI bleeding, still with episodes of dizziness and generalized weakness and malaise, but no reported active GI bleeding. No reported chest pain, palpitation, but poor oral intake. The entire chart is reviewed including but not limited to, the most recent lab results and today's lab results showed drop of hemoglobin to 11.4 with low indices, but normal white blood cells and normal platelet count. Potassium 3.5, glucose 128, albumin dropped to 3.4 and total protein 6.2 PHYSICAL EXAMINATION: GENERAL: A 77-year-old male, afebrile with pulse of 68, respiratory rate 14-16, blood pressure of 148/66. HEENT: Showed pale dry oral mucous membrane. Nonicteric sclerae. LUNGS: Few scattered crepitation. Decreased air entry at bases. HEART: Positive. S1, S2. ABDOMEN: Soft with slight generalized tenderness. No mass or organomegaly. No rebound tenderness or guarding. EXTREMITIES: Without significant cyanosis or clubbing, but mild lower extremity edematous changes. NEUROLOGICAL: No reported new neurological deficits, sensory or motor. IMPRESSION: 1. Renal infarction. 2. Re-exacerbation of peptic ulcer disease. 3. Hypochromic microcytic anemia secondary to above most likely. 4. Poorly controlled diabetes mellitus with possible diabetic gastroparesis with poor oral intake. 5. Malnutrition with hypoalbuminemia, hypoproteinemia. 6. Poorly controlled hypertension. 7. Dysphagia, most likely secondary to above. 8. Drug-induced coagulopathy. 9. Reported history of colon carcinoma. SUGGESTIONS: 1. Agree with your plan. 2. Follow up CEA level. 3. Endoscopic evaluation of the GI tract only if the patient more stable clinically and a very significant drop of hemoglobin and hematocrit, otherwise close observation with central hyperalimentation to continue. Sarah Fowler MD
--- NOTE | 2018-06-25 15:18 | CP.CCUPN ---
CCU Subjective - Physician Review Events Since Last Encounter (Free Text): 06/25/18 15:17 77-year-old male with a history of diabetes hypertension colorectal cancer admitted following the dizziness and feeling, and also fall. Also had a chest pain. Patient was transferred to ICU because of the acute CVA, and associated with acute non-ST elevation CO. Patient is still feeling dizzy. Nausea also noted. But no vomiting. Able to stand up, because of the dizzy episodes. Vital signs otherwise stable. Blood pressure is 129/50 respiration is 15 saturation 100% chest good air entry regular hs nontender abdomen no pedal edema Patient is a CAT scan labs reviewed Potassium supplemented. CT of the head showing evidence of cerebellar infarct. Stable otherwise. There is a mild hemorrhagic conversion noted. Patient is currently being monitored. 77-year-old male with a history of CAD hypertension hypercholesterolemia c olorectal cancer Now admitted with acute CVA, non-ST elevation CO. We will continue to monitor. Out of bed to chair. Fall precaution. Admitted with acute CVA stable otherwise. Symptoms are related to cerebellar CCU Objective - Vital Signs / Intake & Output Vital Signs (Last 4 hours): Vital Signs Pulse Resp BP Pulse Ox 06/25/18 14:22 73 15 129/50 L 98 06/25/18 14:00 73 17 100 06/25/18 13:22 79 22 147/59 L 99 06/25/18 13:00 79 16 99 06/25/18 12:43 75 14 144/61 98 06/25/18 12:34 78 12 121/54 L 06/25/18 12:09 82 17 128/57 L 100 06/25/18 12:00 75 15 98 06/25/18 11:22 70 17 131/50 L 98 Intake and Output (Last 8hrs): Intake & Output 06/25/18 06/25/18 06/25/18 06:59 14:59 22:59 Intake Total 400 550 Output Total 400 Balance 0 550 Weight 126 lb 4.8 oz Intake: Intake, IV Amount 100 100 Right Wrist 100 left wrist 100 Oral 300 450 Output: Urine 400 Urine, Voided 400 Other: # Voids Urine, Voided 1 1 # Bowel Movements 0 1 - Physical Exam Head: Positive for: Atraumatic, Normocephalic Pupils: Positive for: PERRL Extroacular Muscles: Positive for: EOMI Conjunctiva: Positive for: Normal Mouth: Positive for: Moist Mucous Membranes Neck: Positive for: Normal Range of Motion Respiratory/Chest: Positive for: Clear to Auscultation Cardiovascular: Positive for: Murmurs, Normal S1, S2 Abdomen: Positive for: Normal Bowel Sounds. Negative for: Tenderness, Distention Upper Extremity: Negative for: Cyanosis, Edema Lower Extremity: Positive for: Normal Inspection. Negative for: Edema, CALF TENDERNESS Neurological: Positive for: GCS=15, CN II-XII Intact Skin: Positive for: Warm, Dry, Other (hypopigmentation of face/ upper body, consistent of vitiligo ) Psychiatric: Positive for: Alert, Oriented x 3 - Medications Active Medications: Active Medications Generic Name Dose Route Start Last Admin Trade Name Freq PRN Reason Stop Dose Admin Acetaminophen 650 mg 06/22/18 10:56 06/24/18 02:05 Tylenol 325mg Tab PO 650 mg Q6 PRN Administration Headache Amlodipine Besylate 10 mg 06/23/18 10:30 06/25/18 09:36 Norvasc PO 10 mg DAILY KELLEN Administration Aspirin 81 mg 06/20/18 10:00 06/22/18 09:19 Aspirin Chewable PO 81 mg DAILY KELLEN Administration Enoxaparin Sodium 30 mg 06/21/18 10:00 06/22/18 09:20 Lovenox SC 30 mg DAILY KELLEN Administration Famotidine 20 mg 06/22/18 11:45 06/25/18 09:36 Pepcid PO 20 mg BID KELLEN Administration Hydralazine HCl 25 mg 06/22/18 17:00 06/25/18 09:36 Apresoline PO 25 mg Q4 PRN Administration SEE DOSE INSTRUCTIONS Metronidazole 500 mg in 100 mls @ 100 mls/hr 06/22/18 11:00 06/25/18 11:17 Flagyl IVPB 100 mls/hr Q8H KELLEN Administration Protocol Insulin Aspart 0 unit 06/22/18 16:59 06/25/18 12:17 Novolog SC 4 units ACHS KELLEN Administration Protocol Labetalol HCl 100 mg 06/23/18 14:00 06/25/18 14:12 Trandate PO 100 mg Q8H KELLEN Administration Losartan Potassium 100 mg 06/22/18 17:01 06/25/18 09:36 Cozaar PO 100 mg DAILY KELLEN Administration Ondansetron HCl 4 mg 06/22/18 09:00 Zofran Inj IVP Q6H PRN Nausea/Vomiting Rosuvastatin Calcium 2.5 mg 06/20/18 22:00 06/24/18 22:31 Crestor PO 2.5 mg HS KELLEN Administration Sitagliptin Phosphate 100 mg 06/20/18 10:00 06/25/18 09:36 Januvia PO 100 mg DAILY KELLEN Administration - Patient Studies Lab Studies: Lab Studies 06/25/18 06/25/18 06/25/18 Range/Units 11:25 07:25 06:20 WBC (4.8-10.8) K/uL RBC (4.40-5.90) Mil/uL Hgb (12.0-18.0) g/dL Hct (35.0-51.0) % MCV (80.0-94.0) fL MCH (27.0-31.0) pg MCHC (33.0-37.0) g/dL RDW (11.5-14.5) % Plt Count (130-400) K/uL MPV (7.2-11.7) fL Neut % (Auto) (50.0-75.0) % Lymph % (Auto) (20.0-40.0) % [place] % (Auto) (0.0-10.0) % Eos % (Auto) (0.0-4.0) % Baso % (Auto) (0.0-2.0) % Neut # (Auto) (1.8-7.0) K/uL Lymph # (Auto) (1.0-4.3) K/uL [place] # (Auto) (0.0-0.8) K/uL Eos # (Auto) (0.0-0.7) K/uL Baso # (Auto) (0.0-0.2) K/uL Sodium (132-148) mmol/L Potassium (3.6-5.2) mmol/L Chloride (98-107) mmol/L Carbon Dioxide (22-30) mmol/L Anion Gap (10-20) BUN (9-20) mg/dL Creatinine (0.8-1.5) mg/dL Est GFR ( Amer) Est GFR (Non-Af Amer) POC Glucose (mg/dL) 258 H 158 H (65-110) mg/dL Random Glucose (75-110) mg/dL Serum Osmolality 301 H (272-300) mosm/kg Calcium (8.6-10.4) mg/dl Phosphorus (2.5-4.5) mg/dL Magnesium (1.6-2.3) mg/dL Total Bilirubin (0.2-1.3) mg/dL AST (17-59) U/L ALT (21-72) U/L Alkaline Phosphatase (38-126) U/L Total Protein (6.3-8.3) g/dL Albumin (3.5-5.0) g/dL Globulin (2.2-3.9) gm/dL Albumin/Globulin Ratio (1.0-2.1) Plasma Metanephrine (<=57) pg/mL Plasma Normetanephrine (<=148) pg/mL Plas Total Metaneph (<=205) pg/mL 06/25/18 06/25/18 06/24/18 Range/Units 06:19 06:17 21:21 WBC 10.5 (4.8-10.8) K/uL RBC 5.98 H (4.40-5.90) Mil/uL Hgb 11.4 L (12.0-18.0) g/dL Hct 36.4 (35.0-51.0) % MCV 60.8 L (80.0-94.0) fL MCH 19.1 L (27.0-31.0) pg MCHC 31.4 L (33.0-37.0) g/dL RDW 19.2 H (11.5-14.5) % Plt Count 263 (130-400) K/uL MPV 9.0 (7.2-11.7) fL Neut % (Auto) 73.0 (50.0-75.0) % Lymph % (Auto) 15.0 L (20.0-40.0) % [place] % (Auto) 9.0 (0.0-10.0) % Eos % (Auto) 3.0 (0.0-4.0) % Baso % (Auto) 0.0 (0.0-2.0) % Neut # (Auto) 7.7 H (1.8-7.0) K/uL Lymph # (Auto) 1.6 (1.0-4.3) K/uL [place] # (Auto) 0.9 H (0.0-0.8) K/uL Eos # (Auto) 0.3 (0.0-0.7) K/uL Baso # (Auto) 0.0 (0.0-0.2) K/uL Sodium 137 (132-148) mmol/L Potassium 3.5 L (3.6-5.2) mmol/L Chloride 107 (98-107) mmol/L Carbon Dioxide 23 (22-30) mmol/L Anion Gap 11 (10-20) BUN 20 (9-20) mg/dL Creatinine 0.8 (0.8-1.5) mg/dL Est GFR ( Amer) > 60 Est GFR (Non-Af Amer) > 60 POC Glucose (mg/dL) 151 H (65-110) mg/dL Random Glucose 128 H (75-110) mg/dL Serum Osmolality (272-300) mosm/kg Calcium 8.9 (8.6-10.4) mg/dl Phosphorus 2.9 (2.5-4.5) mg/dL Magnesium 2.0 (1.6-2.3) mg/dL Total Bilirubin 0.8 (0.2-1.3) mg/dL AST 20 (17-59) U/L ALT 23 (21-72) U/L Alkaline Phosphatase 76 (38-126) U/L Total Protein 6.2 L (6.3-8.3) g/dL Albumin 3.4 L (3.5-5.0) g/dL Globulin 2.8 (2.2-3.9) gm/dL Albumin/Globulin Ratio 1.2 (1.0-2.1) Plasma Metanephrine (<=57) pg/mL Plasma Normetanephrine (<=148) pg/mL Plas Total Metaneph (<=205) pg/mL 06/24/18 06/22/18 Range/Units 16:17 07:14 WBC (4.8-10.8) K/uL RBC (4.40-5.90) Mil/uL Hgb (12.0-18.0) g/dL Hct (35.0-51.0) % MCV (80.0-94.0) fL MCH (27.0-31.0) pg MCHC (33.0-37.0) g/dL RDW (11.5-14.5) % Plt Count (130-400) K/uL MPV (7.2-11.7) fL Neut % (Auto) (50.0-75.0) % Lymph % (Auto) (20.0-40.0) % [place] % (Auto) (0.0-10.0) % Eos % (Auto) (0.0-4.0) % Baso % (Auto) (0.0-2.0) % Neut # (Auto) (1.8-7.0) K/uL Lymph # (Auto) (1.0-4.3) K/uL [place] # (Auto) (0.0-0.8) K/uL Eos # (Auto) (0.0-0.7) K/uL Baso # (Auto) (0.0-0.2) K/uL Sodium (132-148) mmol/L Potassium (3.6-5.2) mmol/L Chloride (98-107) mmol/L Carbon Dioxide (22-30) mmol/L Anion Gap (10-20) BUN (9-20) mg/dL Creatinine (0.8-1.5) mg/dL Est GFR ( Amer) Est GFR (Non-Af Amer) POC Glucose (mg/dL) 211 H (65-110) mg/dL Random Glucose (75-110) mg/dL Serum Osmolality (272-300) mosm/kg Calcium (8.6-10.4) mg/dl Phosphorus (2.5-4.5) mg/dL Magnesium (1.6-2.3) mg/dL Total Bilirubin (0.2-1.3) mg/dL AST (17-59) U/L ALT (21-72) U/L Alkaline Phosphatase (38-126) U/L Total Protein (6.3-8.3) g/dL Albumin (3.5-5.0) g/dL Globulin (2.2-3.9) gm/dL Albumin/Globulin Ratio (1.0-2.1) Plasma Metanephrine <25 (<=57) pg/mL Plasma Normetanephrine <25 (<=148) pg/mL Plas Total Metaneph <50 (<=205) pg/mL Laboratory Results - last 24 hr 06/22/18 06/24/18 06/24/18 07:14 16:17 21:21 WBC RBC Hgb Hct MCV MCH MCHC RDW Plt Count MPV Neut % (Auto) Lymph % (Auto) [place] % (Auto) Eos % (Auto) Baso % (Auto) Neut # (Auto) Lymph # (Auto) [place] # (Auto) Eos # (Auto) Baso # (Auto) Sodium Potassium Chloride Carbon Dioxide Anion Gap BUN Creatinine Est GFR ( Amer) Est GFR (Non-Af Amer) POC Glucose (mg/dL) 211 H 151 H Random Glucose Serum Osmolality Calcium Phosphorus Magnesium Total Bilirubin AST ALT Alkaline Phosphatase Total Protein Albumin Globulin Albumin/Globulin Ratio Plasma Metanephrine <25 Plasma Normetanephrine <25 Plas Total Metaneph <50 06/25/18 06/25/18 06/25/18 06:17 06:19 06:20 WBC 10.5 RBC 5.98 H Hgb 11.4 L Hct 36.4 MCV 60.8 L MCH 19.1 L MCHC 31.4 L RDW 19.2 H Plt Count 263 MPV 9.0 Neut % (Auto) 73.0 Lymph % (Auto) 15.0 L [place] % (Auto) 9.0 Eos % (Auto) 3.0 Baso % (Auto) 0.0 Neut # (Auto) 7.7 H Lymph # (Auto) 1.6 [place] # (Auto) 0.9 H Eos # (Auto) 0.3 Baso # (Auto) 0.0 Sodium 137 Potassium 3.5 L Chloride 107 Carbon Dioxide 23 Anion Gap 11 BUN 20 Creatinine 0.8 Est GFR ( Amer) > 60 Est GFR (Non-Af Amer) > 60 POC Glucose (mg/dL) Random Glucose 128 H Serum Osmolality 301 H Calcium 8.9 Phosphorus 2.9 Magnesium 2.0 Total Bilirubin 0.8 AST 20 ALT 23 Alkaline Phosphatase 76 Total Protein 6.2 L Albumin 3.4 L Globulin 2.8 Albumin/Globulin Ratio 1.2 Plasma Metanephrine Plasma Normetanephrine Plas Total Metaneph 06/25/18 06/25/18 07:25 11:25 WBC RBC Hgb Hct MCV MCH MCHC RDW Plt Count MPV Neut % (Auto) Lymph % (Auto) [place] % (Auto) Eos % (Auto) Baso % (Auto) Neut # (Auto) Lymph # (Auto) [place] # (Auto) Eos # (Auto) Baso # (Auto) Sodium Potassium Chloride Carbon Dioxide Anion Gap BUN Creatinine Est GFR ( Amer) Est GFR (Non-Af Amer) POC Glucose (mg/dL) 158 H 258 H Random Glucose Serum Osmolality Calcium Phosphorus Magnesium Total Bilirubin AST ALT Alkaline Phosphatase Total Protein Albumin Globulin Albumin/Globulin Ratio Plasma Metanephrine Plasma Normetanephrine Plas Total Metaneph Fingerstick Blood Sugar Results: 158 Critical Care Progress Note - Nutrition Nutrition: Nutrition Category Date Time Status Mechanically altered [Dysphagia/Modified Consistency Diets 06/21/18 Lunch Active Diet] [DIET]
[2018-06-25] MEDS: Rosuvastatin Calcium 2.5 mg Tab PO SCH (22:22)
[2018-06-26] MEDS: metroNIDAZOLE IV 500 mg/100 ml 500 MG/100 ML BAG IVPB SCH ×3 (03:37→19:05)
[2018-06-26 06:32] LABS: HEMOGLOBIN 11.7 g/dL (12.0-18.0); MEAN CELL VOLUME 61.6 fL (80.0-94.0); MEAN CORPUSCULAR HEMOGLOBIN 19.2 pg (27.0-31.0); MEAN CORPUSCULAR HGB CONC 31.2 g/dL (33.0-37.0); MEAN PLATELET VOLUME 9.1 fL (7.2-11.7); RBC 6.08 Mil/uL (4.40-5.90); RED CELL DISTRIBUTION WIDTH 19.3 % (11.5-14.5); WHITE BLOOD COUNT 10.7 K/uL (4.8-10.8)
[2018-06-26 06:49] LABS: ALB/GLOB RATIO 1.3 (1.0-2.1); ALBUMIN 3.4 g/dL (3.5-5.0); ALT/SGPT 14 U/L (21-72); AST/SGOT 19 U/L (17-59); BLOOD UREA NITROGEN 16 mg/dL (9-20); CALCIUM 8.9 mg/dl (8.6-10.4); GFR NON-AFRICAN AMERICAN > 60
[2018-06-26] MEDS: (Novolog) Insulin Aspart, Recombinant 100 u/ml 10 ml vial SC SCH ×4 (07:44→21:45)
--- NOTE | 2018-06-26 09:45 | PN ---
DATE: 06/26/2018 LOCATION: ICU 3. SUBJECTIVE: This 77-year-old male was seen early and examined in rounds without any significant clinical changes without reported active GI bleeding or significant complaint of chest pain or palpitation. The patient appeared to be somewhat more alert. The entire chart is reviewed including but not limited to the most recent lab and radiology study results, current and previous medication list, current and previous medical events. Case discussed with the staff at length. The most recent lab results today showed low hemoglobin of 11.7 with hypochromic microcytic anemia, but normal white blood cells and normal platelet count with potassium 3.5. Blood glucose level 128 with low albumin 3.4, total protein of 6. PHYSICAL EXAMINATION: GENERAL: A 77-year-old male. VITAL SIGNS: Afebrile with pulse of 62, respiratory rate 20-22, with blood pressure of 136/62. HEENT: Showed pale dry oral mucous membrane. Nonicteric sclerae. LUNGS: Few scattered crepitation. Decreased air entry at bases. HEART: Positive S1 and S2. ABDOMEN: Soft with mild generalized tenderness. No mass or organomegaly. No rebound tenderness or guarding. EXTREMITIES: Lower extremities, mild edematous changes. No clubbing or cyanosis. No reported new neurological deficits, sensory or motor. RECTAL: Deferred due to the patient's clinical status. IMPRESSION: 1. Intracranial infarct. 2. Hypochromic microcytic anemia. No evidence of active gastrointestinal bleeding so far. 3. Re-exacerbation of peptic ulcer disease. 4. Poorly controlled diabetes mellitus with possible diabetic gastroparesis associated with malnutrition, poor oral intake and hypoalbuminemia. 5. Poorly controlled hypertension, gradually improving. 6. The patient still have some episodes of dysphagia, most likely secondary to above. 7. Drug-induced coagulopathy. 8. Reported history of colon cancer. SUGGESTIONS: 1. Continue current management. 2. Calorie counting. 3. Swallow evaluation. 4. If the patient has persistent dysphagia, then endoscopic evaluation of the upper GI with potential PEG insertion to be kept in mind only if stable clinically. 5. Further recommendation to follow. Sarah Fowler MD [facility] # [id number]
--- NOTE | 2018-06-26 10:14 | CP.CCUPN ---
CCU Subjective - Physician Review Events Since Last Encounter (Free Text): 06/26/18 10:14 Patient is still having some symptoms of dizziness. He was able to stand up. Sitting up comfortably. Able to eat, no nausea no vomiting no. On examination: Vital signs are stable. Blood pressures controlled well. Chest a good air entry Heart sounds are regular Nontender abdomen. No pedal edema [employer] alert awake oriented. Mildly dizziness on standing noted Assessment and recommendation: 77-year-old male with a history of CAD, hypertension, hyperlipidemia, colorectal cancer. Patient admitted with acute CVA, non-ST elevation, involving the cerebellum, associated with symptoms of vertigo. Improving now. Clinically stable. He will be transferred to telemetry CCU Objective - Vital Signs / Intake & Output Vital Signs (Last 4 hours): Vital Signs Temp Pulse Resp BP Pulse Ox 06/26/18 10:00 66 11 L 100 06/26/18 09:22 73 16 143/59 L 100 06/26/18 09:00 68 20 99 06/26/18 08:23 65 25 H 132/59 L 99 06/26/18 08:00 67 19 98 06/26/18 07:22 65 21 138/58 L 06/26/18 07:00 97.8 F 65 16 138/58 L 99 06/26/18 06:22 167/68 H Intake and Output (Last 8hrs): Intake & Output 06/25/18 06/26/18 06/26/18 21:59 06:59 14:59 Intake Total 480 Output Total Balance 480 Weight Intake: Intake, IV Amount 0 Right Wrist 0 left wrist 0 Oral 480 Output: Urine Urine, Voided Stool Other: # Voids Urine, Voided 0 # Bowel Movements 0 - Physical Exam Head: Positive for: Atraumatic, Normocephalic Pupils: Positive for: PERRL Extroacular Muscles: Positive for: EOMI Conjunctiva: Positive for: Normal Mouth: Positive for: Moist Mucous Membranes Neck: Positive for: Normal Range of Motion Respiratory/Chest: Positive for: Clear to Auscultation Cardiovascular: Positive for: Murmurs, Normal S1, S2 Abdomen: Positive for: Normal Bowel Sounds. Negative for: Tenderness, Distention Upper Extremity: Negative for: Cyanosis, Edema Lower Extremity: Positive for: Normal Inspection. Negative for: Edema, CALF TENDERNESS Neurological: Positive for: GCS=15, CN II-XII Intact Skin: Positive for: Warm, Dry, Other (hypopigmentation of face/ upper body, consistent of vitiligo ) Psychiatric: Positive for: Alert, Oriented x 3 - Medications Active Medications: Active Medications Generic Name Dose Route Start Last Admin Trade Name Freq PRN Reason Stop Dose Admin Acetaminophen 650 mg 06/22/18 10:56 06/24/18 02:05 Tylenol 325mg Tab PO 650 mg Q6 PRN Administration Headache Amlodipine Besylate 10 mg 06/23/18 10:30 06/26/18 09:22 Norvasc PO 10 mg DAILY KELLEN Administration Aspirin 81 mg 06/20/18 10:00 06/22/18 09:19 Aspirin Chewable PO 81 mg DAILY KELLEN Administration Enoxaparin Sodium 30 mg 06/21/18 10:00 06/22/18 09:20 Lovenox SC 30 mg DAILY KELLEN Administration Famotidine 20 mg 06/22/18 11:45 06/26/18 09:23 Pepcid PO 20 mg BID KELLEN Administration Hydralazine HCl 25 mg 06/22/18 17:00 06/25/18 09:36 Apresoline PO 25 mg Q4 PRN Administration SEE DOSE INSTRUCTIONS Metronidazole 500 mg in 100 mls @ 100 mls/hr 06/22/18 11:00 06/26/18 03:37 Flagyl IVPB 100 mls/hr Q8H KELLEN Administration Protocol Insulin Aspart 0 unit 06/22/18 16:59 06/26/18 07:44 Novolog SC 3 units ACHS KELLEN Administration Protocol Labetalol HCl 100 mg 06/23/18 14:00 06/26/18 05:56 Trandate PO 100 mg Q8H KELLEN Administration Losartan Potassium 100 mg 06/22/18 17:01 06/26/18 09:23 Cozaar PO 100 mg DAILY KELLEN Administration Ondansetron HCl 4 mg 06/22/18 09:00 Zofran Inj IVP Q6H PRN Nausea/Vomiting Rosuvastatin Calcium 2.5 mg 06/20/18 22:00 06/25/18 22:22 Crestor PO 2.5 mg HS KELLEN Administration Sitagliptin Phosphate 100 mg 06/20/18 10:00 06/26/18 09:23 Januvia PO 100 mg DAILY KELLEN Administration - Patient Studies Lab Studies: Lab Studies 06/26/18 06/26/18 06/26/18 Range/Units 06:24 06:24 06:23 WBC 10.7 (4.8-10.8) K/uL RBC 6.08 H (4.40-5.90) Mil/uL Hgb 11.7 L (12.0-18.0) g/dL Hct 37.5 (35.0-51.0) % MCV 61.6 L (80.0-94.0) fL MCH 19.2 L (27.0-31.0) pg MCHC 31.2 L (33.0-37.0) g/dL RDW 19.3 H (11.5-14.5) % Plt Count 204 (130-400) K/uL MPV 9.1 (7.2-11.7) fL Neut % (Auto) (50.0-75.0) % Lymph % (Auto) (20.0-40.0) % [place] % (Auto) (0.0-10.0) % Eos % (Auto) (0.0-4.0) % Baso % (Auto) (0.0-2.0) % Neut # (Auto) (1.8-7.0) K/uL Lymph # (Auto) (1.0-4.3) K/uL [place] # (Auto) (0.0-0.8) K/uL Eos # (Auto) (0.0-0.7) K/uL Baso # (Auto) (0.0-0.2) K/uL Sodium 136 (132-148) mmol/L Potassium 3.5 L (3.6-5.2) mmol/L Chloride 105 (98-107) mmol/L Carbon Dioxide 24 (22-30) mmol/L Anion Gap 10 (10-20) BUN 16 (9-20) mg/dL Creatinine 0.6 L (0.8-1.5) mg/dL Est GFR ( Amer) > 60 Est GFR (Non-Af Amer) > 60 POC Glucose (mg/dL) (65-110) mg/dL Random Glucose 128 H (75-110) mg/dL Serum Osmolality 298 (272-300) mosm/kg Calcium 8.9 (8.6-10.4) mg/dl Phosphorus 2.7 (2.5-4.5) mg/dL Magnesium 1.9 (1.6-2.3) mg/dL Total Bilirubin 0.5 (0.2-1.3) mg/dL AST 19 (17-59) U/L ALT 14 L D (21-72) U/L Alkaline Phosphatase 76 (38-126) U/L Total Protein 6.0 L (6.3-8.3) g/dL Albumin 3.4 L (3.5-5.0) g/dL Globulin 2.7 (2.2-3.9) gm/dL Albumin/Globulin Ratio 1.3 (1.0-2.1) Plasma Metanephrine (<=57) pg/mL Plasma Normetanephrine (<=148) pg/mL Plas Total Metaneph (<=205) pg/mL 06/25/18 06/25/18 06/22/18 Range/Units 11:25 06:19 07:14 WBC (4.8-10.8) K/uL RBC (4.40-5.90) Mil/uL Hgb (12.0-18.0) g/dL Hct (35.0-51.0) % MCV 60.8 L (80.0-94.0) fL MCH (27.0-31.0) pg MCHC (33.0-37.0) g/dL RDW (11.5-14.5) % Plt Count (130-400) K/uL MPV (7.2-11.7) fL Neut % (Auto) 73.0 (50.0-75.0) % Lymph % (Auto) 15.0 L (20.0-40.0) % [place] % (Auto) 9.0 (0.0-10.0) % Eos % (Auto) 3.0 (0.0-4.0) % Baso % (Auto) 0.0 (0.0-2.0) % Neut # (Auto) 7.7 H (1.8-7.0) K/uL Lymph # (Auto) 1.6 (1.0-4.3) K/uL [place] # (Auto) 0.9 H (0.0-0.8) K/uL Eos # (Auto) 0.3 (0.0-0.7) K/uL Baso # (Auto) 0.0 (0.0-0.2) K/uL Sodium (132-148) mmol/L Potassium (3.6-5.2) mmol/L Chloride (98-107) mmol/L Carbon Dioxide (22-30) mmol/L Anion Gap (10-20) BUN (9-20) mg/dL Creatinine (0.8-1.5) mg/dL Est GFR ( Amer) Est GFR (Non-Af Amer) POC Glucose (mg/dL) 258 H (65-110) mg/dL Random Glucose (75-110) mg/dL Serum Osmolality (272-300) mosm/kg Calcium (8.6-10.4) mg/dl Phosphorus (2.5-4.5) mg/dL Magnesium (1.6-2.3) mg/dL Total Bilirubin (0.2-1.3) mg/dL AST (17-59) U/L ALT (21-72) U/L Alkaline Phosphatase (38-126) U/L Total Protein (6.3-8.3) g/dL Albumin (3.5-5.0) g/dL Globulin (2.2-3.9) gm/dL Albumin/Globulin Ratio (1.0-2.1) Plasma Metanephrine <25 (<=57) pg/mL Plasma Normetanephrine <25 (<=148) pg/mL Plas Total Metaneph <50 (<=205) pg/mL Laboratory Results - last 24 hr 06/22/18 06/25/18 06/25/18 07:14 06:19 11:25 WBC RBC Hgb Hct MCV 60.8 L MCH MCHC RDW Plt Count MPV Neut % (Auto) 73.0 Lymph % (Auto) 15.0 L [place] % (Auto) 9.0 Eos % (Auto) 3.0 Baso % (Auto) 0.0 Neut # (Auto) 7.7 H Lymph # (Auto) 1.6 [place] # (Auto) 0.9 H Eos # (Auto) 0.3 Baso # (Auto) 0.0 Sodium Potassium Chloride Carbon Dioxide Anion Gap BUN Creatinine Est GFR ( Amer) Est GFR (Non-Af Amer) POC Glucose (mg/dL) 258 H Random Glucose Serum Osmolality Calcium Phosphorus Magnesium Total Bilirubin AST ALT Alkaline Phosphatase Total Protein Albumin Globulin Albumin/Globulin Ratio Plasma Metanephrine <25 Plasma Normetanephrine <25 Plas Total Metaneph <50 06/26/18 06/26/18 06/26/18 06:23 06:24 06:24 WBC 10.7 RBC 6.08 H Hgb 11.7 L Hct 37.5 MCV 61.6 L MCH 19.2 L MCHC 31.2 L RDW 19.3 H Plt Count 204 MPV 9.1 Neut % (Auto) Lymph % (Auto) [place] % (Auto) Eos % (Auto) Baso % (Auto) Neut # (Auto) Lymph # (Auto) [place] # (Auto) Eos # (Auto) Baso # (Auto) Sodium 136 Potassium 3.5 L Chloride 105 Carbon Dioxide 24 Anion Gap 10 BUN 16 Creatinine 0.6 L Est GFR ( Amer) > 60 Est GFR (Non-Af Amer) > 60 POC Glucose (mg/dL) Random Glucose 128 H Serum Osmolality 298 Calcium 8.9 Phosphorus 2.7 Magnesium 1.9 Total Bilirubin 0.5 AST 19 ALT 14 L D Alkaline Phosphatase 76 Total Protein 6.0 L Albumin 3.4 L Globulin 2.7 Albumin/Globulin Ratio 1.3 Plasma Metanephrine Plasma Normetanephrine Plas Total Metaneph Fingerstick Blood Sugar Results: 203 Critical Care Progress Note - Nutrition Nutrition: Nutrition Category Date Time Status Mechanically altered [Dysphagia/Modified Consistency Diets 06/21/18 Lunch Active Diet] [DIET]
[2018-06-26] MEDS ORDERED: Potassium Chloride 20 mEq/15 ml LIQ UD PO ONE (10:15)
--- NOTE | 2018-06-26 11:09 | CP.PCM.PN ---
Subjective - Date & Time of Evaluation Date of Evaluation: 06/25/18 Time of Evaluation: 20:30 - Subjective Subjective: 77-year-old male with a history of diabetes hypertension colorectal cancer admitted following the dizziness and feeling, and also fall. Also had a chest pain. Patient was transferred to ICU because of the acute CVA, and associated with acute non-ST elevation GA. Patient is still feeling dizzy. Nausea also noted. But no vomiting. Able to stand up, because of the dizzy episodes. Vital signs otherwise stable. Blood pressure is 129/50 respiration is 15 saturation 100% chest good air entry regular hs nontender abdomen no pedal edema Patient is a CAT scan labs reviewed Potassium supplemented. CT of the head showing evidence of cerebellar infarct. Stable otherwise. There is a mild hemorrhagic conversion noted. Patient is currently being monitored. 77-year-old male with a history of CAD hypertension hypercholesterolemia colorectal cancer Now admitted with acute CVA, non-ST elevation GA. We will continue to monitor. Out of bed to chair. Fall precaution. Admitted with acute CVA stable otherwise. Symptoms are related to cerebellar Objective - Vital Signs/Intake and Output Vital Signs (last 24 hours): Temp Pulse Resp BP Pulse Ox 97.8 F 75 13 139/54 L 100 06/26/18 07:00 06/26/18 10:23 06/26/18 10:23 06/26/18 10:23 06/26/18 10:23 Intake and Output: 06/26/18 06/26/18 06:59 18:59 Intake Total 480 Output Total Balance 480 - Medications Medications: Current Medications Acetaminophen (Tylenol 325mg Tab) 650 mg PO Q6 PRN PRN Reason: Headache Last Admin: 06/24/18 02:05 Dose: 650 mg Amlodipine Besylate (Norvasc) 10 mg PO DAILY [facility] Last Admin: 06/26/18 09:22 Dose: 10 mg Aspirin (Aspirin Chewable) 81 mg PO DAILY [facility] Last Admin: 06/22/18 09:19 Dose: 81 mg Enoxaparin Sodium (Lovenox) 30 mg SC DAILY [facility] Last Admin: 06/22/18 09:20 Dose: 30 mg Famotidine (Pepcid) 20 mg PO BID [facility] Last Admin: 06/26/18 09:23 Dose: 20 mg Hydralazine HCl (Apresoline) 25 mg PO Q4 PRN PRN Reason: SEE DOSE INSTRUCTIONS Last Admin: 06/25/18 09:36 Dose: 25 mg Metronidazole (Flagyl) 500 mg in 100 mls @ 100 mls/hr IVPB Q8H [facility]; Protocol Last Admin: 06/26/18 10:50 Dose: 100 mls/hr Insulin Aspart (Novolog) 0 unit SC ACHS [facility]; Protocol Last Admin: 06/26/18 07:44 Dose: 3 units Labetalol HCl (Trandate) 100 mg PO Q8H [facility] Last Admin: 06/26/18 05:56 Dose: 100 mg Losartan Potassium (Cozaar) 100 mg PO DAILY [facility] Last Admin: 06/26/18 09:23 Dose: 100 mg Ondansetron HCl (Zofran Inj) 4 mg IVP Q6H PRN PRN Reason: Nausea/Vomiting Rosuvastatin Calcium (Crestor) 2.5 mg PO HS [facility] Last Admin: 06/25/18 22:22 Dose: 2.5 mg Sitagliptin Phosphate (Januvia) 100 mg PO DAILY [facility] Last Admin: 06/26/18 09:23 Dose: 100 mg - Labs Labs: 06/26/18 06:23 06/26/18 06:24 PT 10.9 SECONDS (9.7-12.2) 06/19/18 14:09 INR 1.0 06/19/18 14:09 APTT 77 SECONDS (21-34) H D 06/20/18 08:23
[2018-06-26 11:23] LABS: EOS # 0.2 K/uL (0.0-0.7); LYMPH # 2.4 K/uL (1.0-4.3); MONO # 1.7 K/uL (0.0-0.8); NEUT # 6.4 K/uL (1.8-7.0)
--- NOTE | 2018-06-26 17:34 | CATH ---
Date of service: 06/20/2018 PROCEDURE: Fluoroscopic guidance was provided HISTORY: CAD COMPARISON: No prior similar study available for comparison. TECHNIQUE: Fluoroscopic guidance was provided during cardiac catheterization FINDINGS: Fluoroscopic guidance was provided during cardiac catheterization. Multiple spot images were submitted. Please refer to the procedure report for more details. IMPRESSION: Fluoroscopic guided is broke provided during cardiac catheterization.
--- NOTE | 2018-06-26 20:09 | CP.PCM.PN ---
Subjective - Date & Time of Evaluation Date of Evaluation: 06/26/18 Time of Evaluation: 13:15 - Subjective Subjective: Patient seen and evaluated Some dizziness Physical Examination - Constitutional Appears: No Acute Distress, Chronically Ill - Eye Exam Eye Exam: PERRL - ENT Exam ENT Exam: Mucous Membranes Moist - Respiratory Exam Respiratory Exam: Clear to Ausculation Bilateral, NORMAL BREATHING PATTERN - Cardiovascular Exam Cardiovascular Exam: REGULAR RHYTHM, +S1, +S2 - GI/Abdominal Exam GI & Abdominal Exam: Soft, Normal Bowel Sounds - Neurological Exam Neurological Exam: Alert, Awake, CN II-XII Intact, Normal Gait, Oriented x3 - Psychiatric Exam Psychiatric exam: Normal Affect, Normal Mood Assessment and Plan - Assessment and Plan (Free Text) Assessment: cva cerebeller. htn. Plan: 77-year-old male with a history of CAD, hypertension, hyperlipidemia, colorectal cancer. Patient admitted with acute CVA, non-ST elevation, involving the cerebellum, associated with symptoms of vertigo. Improving now. Clinically stable. He will be transferred to telemetry Objective - Vital Signs/Intake and Output Vital Signs (last 24 hours): Temp Pulse Resp BP Pulse Ox 97.9 F 75 17 137/60 100 06/26/18 19:00 06/26/18 19:00 06/26/18 19:00 06/26/18 19:00 06/26/18 19:00 Intake and Output: 06/26/18 06/27/18 18:59 06:59 Intake Total 1810 120 Output Total 650 0 Balance 1160 120 - Medications Medications: Current Medications Acetaminophen (Tylenol 325mg Tab) 650 mg PO Q6 PRN PRN Reason: Headache Last Admin: 06/24/18 02:05 Dose: 650 mg Amlodipine Besylate (Norvasc) 10 mg PO DAILY [facility] Last Admin: 06/26/18 09:22 Dose: 10 mg Aspirin (Aspirin Chewable) 81 mg PO DAILY [facility] Last Admin: 06/22/18 09:19 Dose: 81 mg Enoxaparin Sodium (Lovenox) 30 mg SC DAILY [facility] Last Admin: 06/22/18 09:20 Dose: 30 mg Famotidine (Pepcid) 20 mg PO BID [facility] Last Admin: 06/26/18 17:52 Dose: 20 mg Hydralazine HCl (Apresoline) 25 mg PO Q4 PRN PRN Reason: SEE DOSE INSTRUCTIONS Last Admin: 06/25/18 09:36 Dose: 25 mg Metronidazole (Flagyl) 500 mg in 100 mls @ 100 mls/hr IVPB Q8H [facility]; Protocol Last Admin: 06/26/18 19:05 Dose: 100 mls/hr Insulin Aspart (Novolog) 0 unit SC [facility]; Protocol Last Admin: 06/26/18 17:05 Dose: 2 units Labetalol HCl (Trandate) 100 mg PO Q8H [facility] Last Admin: 06/26/18 14:00 Dose: Not Given Losartan Potassium (Cozaar) 100 mg PO DAILY [facility] Last Admin: 06/26/18 09:23 Dose: 100 mg Ondansetron HCl (Zofran Inj) 4 mg IVP Q6H PRN PRN Reason: Nausea/Vomiting Rosuvastatin Calcium (Crestor) 2.5 mg PO HS [facility] Last Admin: 06/25/18 22:22 Dose: 2.5 mg Sitagliptin Phosphate (Januvia) 100 mg PO DAILY [facility] Last Admin: 06/26/18 09:23 Dose: 100 mg - Labs Labs: 06/26/18 06:23 06/26/18 06:24 PT 10.9 SECONDS (9.7-12.2) 06/19/18 14:09 INR 1.0 06/19/18 14:09 APTT 77 SECONDS (21-34) H D 06/20/18 08:23
[2018-06-26] MEDS: Rosuvastatin Calcium 2.5 mg Tab PO SCH (21:44)
[2018-06-27] MEDS: metroNIDAZOLE IV 500 mg/100 ml 500 MG/100 ML BAG IVPB SCH ×2 (02:45→11:43)
[2018-06-27 06:13] LABS: HEMOGLOBIN 12.3 g/dL (12.0-18.0)
[2018-06-27 06:23] LABS: MEAN CELL VOLUME 60.6 fL (80.0-94.0); MEAN CORPUSCULAR HGB CONC 31.4 g/dL (33.0-37.0); MEAN PLATELET VOLUME 9.1 fL (7.2-11.7); PLATELET COUNT 264 K/uL (130-400); RBC 6.48 Mil/uL (4.40-5.90); RED CELL DISTRIBUTION WIDTH 18.9 % (11.5-14.5); WHITE BLOOD COUNT 11.7 K/uL (4.8-10.8)
[2018-06-27 06:47] LABS: ALB/GLOB RATIO 1.4 (1.0-2.1); ALBUMIN 3.7 g/dL (3.5-5.0); ALT/SGPT 17 U/L (21-72); AST/SGOT 22 U/L (17-59); BLOOD UREA NITROGEN 13 mg/dL (9-20); CALCIUM 8.2 mg/dl (8.6-10.4); GFR NON-AFRICAN AMERICAN > 60
[2018-06-27] MEDS: (Novolog) Insulin Aspart, Recombinant 100 u/ml 10 ml vial SC SCH ×4 (07:43→21:24)
[2018-06-27 09:30] LABS: BASO # 0.1 K/uL (0.0-0.2); EOS # 0.5 K/uL (0.0-0.7); LYMPH # 0.8 K/uL (1.0-4.3); MONO # 1.2 K/uL (0.0-0.8); NEUT # 9.1 K/uL (1.8-7.0)
[2018-06-27 09:34] LABS: ANISOCYTOSIS SLIGHT; EOSINOPHIL 2 % (0-4); HYPOCHROMIC SLIGHT; LARGE PLATELETS PRESENT; LYMPHOCYTE 7 % (20-40); MONOCYTE 7 % (0-10); MYELOCYTE 1 % (0-0); NEUTROPHIL 83 % (50-75); OVALOCYTES SLIGHT; PLATELET ESTIMATE NORMAL (NORMAL); POIKILOCYTOSIS SLIGHT; TOTAL CELLS COUNTED 100
[2018-06-27 09:35] LABS: BURR CELLS SLIGHT; TARGET CELLS SLIGHT
[2018-06-27 11:04] LABS: ALDO/PRA RATIO 25.7 Ratio (0.9-28.9)
--- NOTE | 2018-06-27 12:23 | CP.PCM.PN ---
Subjective - Date & Time of Evaluation Date of Evaluation: 06/26/18 Time of Evaluation: 11:00 - Subjective Subjective: CONDITION REMAINS SAME. BP FLUCTUATING. DIZZINESS PRESENT. Objective - Vital Signs/Intake and Output Vital Signs (last 24 hours): Temp Pulse Resp BP Pulse Ox 98.1 F 66 15 102/69 99 06/27/18 08:00 06/27/18 11:00 06/27/18 11:00 06/27/18 09:04 06/27/18 11:00 Intake and Output: 06/27/18 06/27/18 06:59 18:59 Intake Total 320 550 Output Total 1050 150 Balance -730 400 - Medications Medications: Current Medications Acetaminophen (Tylenol 325mg Tab) 650 mg PO Q6 PRN PRN Reason: Headache Last Admin: 06/24/18 02:05 Dose: 650 mg Amlodipine Besylate (Norvasc) 10 mg PO DAILY [facility] Last Admin: 06/27/18 09:06 Dose: Not Given Aspirin (Aspirin Chewable) 81 mg PO DAILY [facility] Last Admin: 06/22/18 09:19 Dose: 81 mg Enoxaparin Sodium (Lovenox) 30 mg SC DAILY [facility] Last Admin: 06/22/18 09:20 Dose: 30 mg Famotidine (Pepcid) 20 mg PO BID [facility] Last Admin: 06/27/18 09:06 Dose: 20 mg Hydralazine HCl (Apresoline) 25 mg PO Q4 PRN PRN Reason: SEE DOSE INSTRUCTIONS Last Admin: 06/25/18 09:36 Dose: 25 mg Insulin Aspart (Novolog) 0 unit SC [facility]; Protocol Last Admin: 06/27/18 11:44 Dose: 8 units Labetalol HCl (Trandate) 100 mg PO Q8H [facility] Last Admin: 06/27/18 06:20 Dose: 100 mg Losartan Potassium (Cozaar) 100 mg PO DAILY [facility] Last Admin: 06/27/18 09:06 Dose: Not Given Ondansetron HCl (Zofran Inj) 4 mg IVP Q6H PRN PRN Reason: Nausea/Vomiting Rosuvastatin Calcium (Crestor) 2.5 mg PO HS [facility] Last Admin: 06/26/18 21:44 Dose: 2.5 mg Sitagliptin Phosphate (Januvia) 100 mg PO DAILY [facility] Last Admin: 06/27/18 09:05 Dose: 100 mg - Labs Labs: 06/27/18 06:07 06/27/18 06:07 PT 10.9 SECONDS (9.7-12.2) 06/19/18 14:09 INR 1.0 06/19/18 14:09 APTT 77 SECONDS (21-34) H D 06/20/18 08:23 - Constitutional Appears: Chronically Ill - Eye Exam Eye Exam: Normal appearance, PERRL - ENT Exam ENT Exam: Mucous Membranes Moist - Respiratory Exam Respiratory Exam: Clear to Ausculation Bilateral, NORMAL BREATHING PATTERN - Cardiovascular Exam Cardiovascular Exam: REGULAR RHYTHM, +S1, +S2 - GI/Abdominal Exam GI & Abdominal Exam: Soft, Normal Bowel Sounds - Extremities Exam Extremities Exam: Full ROM, Normal Capillary Refill, Normal Inspection. absent: Joint Swelling, Pedal Edema - Back Exam Back Exam: NORMAL INSPECTION - Neurological Exam Neurological Exam: Alert, Awake, CN II-XII Intact, Normal Gait, Oriented x3 Assessment and Plan - Assessment and Plan (Free Text) Assessment: CVA HTN. Plan: CT PRESENT MANAGEMENT.
--- NOTE | 2018-06-27 12:26 | CP.PCM.PN ---
Subjective - Date & Time of Evaluation Date of Evaluation: 06/27/18 Time of Evaluation: 12:24 - Subjective Subjective: CHASE. DEBILITY. NO CP. BP CONTROLLED. Objective - Vital Signs/Intake and Output Vital Signs (last 24 hours): Temp Pulse Resp BP Pulse Ox 98.1 F 66 15 102/69 99 06/27/18 08:00 06/27/18 11:00 06/27/18 11:00 06/27/18 09:04 06/27/18 11:00 Intake and Output: 06/27/18 06/27/18 06:59 18:59 Intake Total 320 550 Output Total 1050 150 Balance -730 400 - Medications Medications: Current Medications Acetaminophen (Tylenol 325mg Tab) 650 mg PO Q6 PRN PRN Reason: Headache Last Admin: 06/24/18 02:05 Dose: 650 mg Amlodipine Besylate (Norvasc) 10 mg PO DAILY [facility] Last Admin: 06/27/18 09:06 Dose: Not Given Aspirin (Aspirin Chewable) 81 mg PO DAILY [facility] Last Admin: 06/22/18 09:19 Dose: 81 mg Enoxaparin Sodium (Lovenox) 30 mg SC DAILY [facility] Last Admin: 06/22/18 09:20 Dose: 30 mg Famotidine (Pepcid) 20 mg PO BID [facility] Last Admin: 06/27/18 09:06 Dose: 20 mg Hydralazine HCl (Apresoline) 25 mg PO Q4 PRN PRN Reason: SEE DOSE INSTRUCTIONS Last Admin: 06/25/18 09:36 Dose: 25 mg Insulin Aspart (Novolog) 0 unit SC [facility]; Protocol Last Admin: 06/27/18 11:44 Dose: 8 units Labetalol HCl (Trandate) 100 mg PO Q8H [facility] Last Admin: 06/27/18 06:20 Dose: 100 mg Losartan Potassium (Cozaar) 100 mg PO DAILY [facility] Last Admin: 06/27/18 09:06 Dose: Not Given Ondansetron HCl (Zofran Inj) 4 mg IVP Q6H PRN PRN Reason: Nausea/Vomiting Rosuvastatin Calcium (Crestor) 2.5 mg PO HS [facility] Last Admin: 06/26/18 21:44 Dose: 2.5 mg Sitagliptin Phosphate (Januvia) 100 mg PO DAILY [facility] Last Admin: 06/27/18 09:05 Dose: 100 mg - Labs Labs: 06/27/18 06:07 06/27/18 06:07 PT 10.9 SECONDS (9.7-12.2) 06/19/18 14:09 INR 1.0 06/19/18 14:09 APTT 77 SECONDS (21-34) H D 06/20/18 08:23 - Constitutional Appears: Chronically Ill - Eye Exam Eye Exam: PERRL - ENT Exam ENT Exam: Mucous Membranes Moist - Respiratory Exam Respiratory Exam: Clear to Ausculation Bilateral, NORMAL BREATHING PATTERN - Cardiovascular Exam Cardiovascular Exam: REGULAR RHYTHM, +S1, +S2 - GI/Abdominal Exam GI & Abdominal Exam: Soft, Normal Bowel Sounds - Extremities Exam Extremities Exam: Full ROM, Normal Capillary Refill, Normal Inspection. absent: Joint Swelling, Pedal Edema - Neurological Exam Neurological Exam: Alert, Awake, CN II-XII Intact, Normal Gait, Oriented x3 - Psychiatric Exam Psychiatric exam: Normal Affect, Normal Mood Assessment and Plan - Assessment and Plan (Free Text) Assessment: CVA. Plan: FOR TELEMETRY. PT/OT.
--- NOTE | 2018-06-27 14:07 | CP.PCM.PN ---
Subjective - Date & Time of Evaluation Date of Evaluation: 06/27/18 Time of Evaluation: 14:05 - Subjective Subjective: Nephrology Consultation Note: Assessment: stable Uncontrolled severe HTN with emergency: Improved NSTEMI, acute/sub-acute CVA Diabetic chronic Kidney Disease (E11.22) Hypertensive Chronic Kidney Disease (I12.9) Chronic Kidney Disease (N18.1) Stage 1 with ? mg proteinuria (R80.9) likely due to DM/HTN rectal CA, vitiligo stable b/l simple and complex renal cysts mild to moderate LVH Plan No acute need for renal replacement therapy at this time. Hypertension control with meds as ordered. Maintain hemodynamics stable. Avoid hypotension. Patient on losartan 100 mg/d. norvasc 10 mg/d. labetalol 100 mg tid. BP control acceptable on current regimen with some fluctuations noted will target gradual decrease in BP considering CVA Monitor Input/Output, daily weights and renal function with basic metabolic panel Check urine analysis, spot protein/creatinine, albumin/creatinine ratio Secondary HTN work up with plasma renin/aldosterone, plasma metanephrine and renal artery Doppler: NEGATIVE Dose meds/antibiotics for GFR >60. Glycemic control Further work up/management as per primary team pt stable from renal perspective when planned for d/c Thanks for allowing me to participate in care of your patient. Will follow pat ient with you. Please call if any Qs. had d/w team and family Dr Jonathan Casarez Office: [phone] Chief Complaint; dizziness Reason for consult: HTN management HPI: Pt is a 77 M with hx of diabetes Mellitus (10 years), hypertension (10 years) rectal CA, vitiligo presented with complaints of dizziness and generalized weakness. found to have severe uncontrolled HTN and acute/sub-acute CVA hence renal consulted for HTN management. pt says BP usually high. Denies OTC/herbal meds or NSAIDs No obvious episodes of low BP. ROS: besides dizziness, feels well. no other complaints Cardiovascular: No chest pain. Pulmonary: feels shortness of breath Gastrointestinal: no abdominal pain No nausea. No vomiting. Genitourinary: No pain while urinating. Denies blood in urine. All other negative except as mentioned in HPI Physical Examination: General Appearance: Comfortable, in no acute respiratory distress, co-operative . Vitals reviewed and noted as below Head; Atraumatic, normocephalic ENT: no ulcers no thrush. Tongue is midline/dry. Oropharynx: no rash or ulcers. EYES: Pupils are equal, round and reactive to light accommodation. Eye muscles and extraocular movement intact. Sclera is anicteric. Neck; supple no lymphadenopathy, no thyromegaly or bruit Lungs: Normal respiratory rate/effort. Breath sounds bilateral somewhat reduced at bases Heart: Normal rate. s1s2 normal. No rub or gallop. Extremities: no edema. No varicose veins Neurological: Patient is alert, awake and oriented to person, place and time. Strength bilateral appropriate and equal Skin: Warm and dry. Normal turgor. No rash. Palpitation: Normal elasticity for age. vitiligo changes+ Abdomen: Abdomen is soft. Bowel sounds +. There is no abdominal tenderness, no guarding/rigidity no organomegaly. old scars+ Psych: limited insight and normal affect/mood MSK: no joint tenderness or swelling. Digits and nails normal, no deformity : kidney or bladder not palpable Labs/imaging reviewed. Past medical history, past surgical history, family history, social history, allergy reviewed and noted as below Family hx: no hx of CKD. Rest non-contributory work up: UA 2+ protein mild to moderate LVH on echo renal imaging b/l simple and complex cyst, chronic adrenal wnl Objective - Vital Signs/Intake and Output Vital Signs (last 24 hours): Temp Pulse Resp BP Pulse Ox 98.3 F 70 19 166/71 H 100 06/27/18 12:00 06/27/18 12:04 06/27/18 12:04 06/27/18 12:04 06/27/18 12:04 Intake and Output: 06/27/18 06/27/18 06:59 18:59 Intake Total 320 550 Output Total 1050 150 Balance -730 400 - Medications Medications: Current Medications Acetaminophen (Tylenol 325mg Tab) 650 mg PO Q6 PRN PRN Reason: Headache Last Admin: 06/24/18 02:05 Dose: 650 mg Amlodipine Besylate (Norvasc) 10 mg PO DAILY [facility] Last Admin: 06/27/18 09:06 Dose: Not Given Aspirin (Aspirin Chewable) 81 mg PO DAILY [facility] Last Admin: 06/22/18 09:19 Dose: 81 mg Enoxaparin Sodium (Lovenox) 30 mg SC DAILY [facility] Last Admin: 06/22/18 09:20 Dose: 30 mg Famotidine (Pepcid) 20 mg PO BID [facility] Last Admin: 06/27/18 09:06 Dose: 20 mg Hydralazine HCl (Apresoline) 25 mg PO Q4 PRN PRN Reason: SEE DOSE INSTRUCTIONS Last Admin: 06/25/18 09:36 Dose: 25 mg Insulin Aspart (Novolog) 0 unit SC [facility]; Protocol Last Admin: 06/27/18 11:44 Dose: 8 units Labetalol HCl (Trandate) 100 mg PO Q8H [facility] Last Admin: 06/27/18 06:20 Dose: 100 mg Losartan Potassium (Cozaar) 100 mg PO DAILY [facility] Last Admin: 06/27/18 09:06 Dose: Not Given Ondansetron HCl (Zofran Inj) 4 mg IVP Q6H PRN PRN Reason: Nausea/Vomiting Rosuvastatin Calcium (Crestor) 2.5 mg PO HS [facility] Last Admin: 06/26/18 21:44 Dose: 2.5 mg Sitagliptin Phosphate (Januvia) 100 mg PO DAILY [facility] Last Admin: 06/27/18 09:05 Dose: 100 mg - Labs Labs: 06/27/18 06:07 06/27/18 06:07 PT 10.9 SECONDS (9.7-12.2) 06/19/18 14:09 INR 1.0 06/19/18 14:09 APTT 77 SECONDS (21-34) H D 06/20/18 08:23
--- NOTE | 2018-06-27 21:25 | PN ---
DATE: 06/27/2018 LOCATION: ICU 3. SUBJECTIVE: This is a 77-year-old male seen and examined in rounds early today without any significant clinical changes or reported active bleeding so far, but very poor oral intake. The entire chart is reviewed including but not limited to the most recent lab and radiology study results, current and the previous medication list, current and the previous medical events. The patient appeared to be somewhat cooperative. Today's lab results showed leukocytosis of 11.7 with normal hemoglobin and hematocrit with blood glucose level of 150, calcium 8.2 with normal liver function test. PHYSICAL EXAMINATION: GENERAL: A 77-year-old male. VITAL SIGNS: Afebrile with pulse of 68, respiratory rate 20 to 22, blood pressure 170/70. HEENT: Showed pale dry oral mucous membrane. Nonicteric sclerae. LUNGS: Few scattered crepitation. Decreased air entry at bases. HEART: Positive S1 and S2. ABDOMEN: Soft with mild generalized tenderness. No mass or organomegaly. No rebound tenderness or guarding. NEUROLOGIC: No reported new neurological deficits, sensory or motor. The patient still has periods of dizziness, on and off, less than before. EXTREMITIES: With lower extremities mild edematous changes. IMPRESSION: 1. Recent history of cerebrovascular accident, acute. 2. Hyperlipidemia, hypertension by history with coronary artery disease. 3. Colon cancer, by history. 4. Vertigo, secondary to above. 5. Reported episode of dysphagia, on and off. 6. Drug-induced coagulopathy. SUGGESTIONS: 1. Agree with your plan. 2. Get peripheral hyperalimentation. 3. A swallow evaluation. 4. Calorie counting. 5. Further recommendation to follow. Sarah Fowler MD
[2018-06-27] MEDS: Rosuvastatin Calcium 2.5 mg Tab PO SCH (21:29)
--- NOTE | 2018-06-27 23:54 | CP.PCM.PN ---
Subjective - Date & Time of Evaluation Date of Evaluation: 06/27/18 Time of Evaluation: 17:25 - Subjective Subjective: Patient seen and evaluated No cardiac events noted Physical Examination - Constitutional Appears: No Acute Distress, Chronically Ill - Eye Exam Eye Exam: PERRL - ENT Exam ENT Exam: Mucous Membranes Moist - Respiratory Exam Respiratory Exam: Clear to Ausculation Bilateral, NORMAL BREATHING PATTERN - Cardiovascular Exam Cardiovascular Exam: REGULAR RHYTHM, +S1, +S2 - GI/Abdominal Exam GI & Abdominal Exam: Soft, Normal Bowel Sounds - Neurological Exam Neurological Exam: Alert, Awake, CN II-XII Intact, Normal Gait, Oriented x3 - Psychiatric Exam Psychiatric exam: Normal Affect, Normal Mood Assessment and Plan - Assessment and Plan (Free Text) Assessment: cva cerebeller. htn. Plan: 77-year-old male with a history of CAD, hypertension, hyperlipidemia, colorectal cancer. Patient admitted with acute CVA, non-ST elevation, involving the cerebellum, associated with symptoms of vertigo. Improving now. Clinically stable. Objective - Vital Signs/Intake and Output Vital Signs (last 24 hours): Temp Pulse Resp BP Pulse Ox 97.8 F 67 20 159/74 H 95 06/27/18 22:25 06/27/18 22:25 06/27/18 22:25 06/27/18 22:25 06/27/18 22:25 Intake and Output: 06/27/18 06/28/18 18:59 06:59 Intake Total 650 0 Output Total 400 Balance 250 0 - Medications Medications: Current Medications Acetaminophen (Tylenol 325mg Tab) 650 mg PO Q6 PRN PRN Reason: Headache Last Admin: 06/24/18 02:05 Dose: 650 mg Amlodipine Besylate (Norvasc) 10 mg PO DAILY [facility] Last Admin: 06/27/18 09:06 Dose: Not Given Aspirin (Aspirin Chewable) 81 mg PO DAILY [facility] Last Admin: 06/22/18 09:19 Dose: 81 mg Enoxaparin Sodium (Lovenox) 30 mg SC DAILY [facility] Last Admin: 06/22/18 09:20 Dose: 30 mg Famotidine (Pepcid) 20 mg PO BID [facility] Last Admin: 06/27/18 18:01 Dose: 20 mg Hydralazine HCl (Apresoline) 25 mg PO Q4 PRN PRN Reason: SEE DOSE INSTRUCTIONS Last Admin: 06/25/18 09:36 Dose: 25 mg Insulin Aspart (Novolog) 0 unit SC A[facility]; Protocol Last Admin: 06/27/18 21:24 Dose: Not Given Labetalol HCl (Trandate) 100 mg PO Q8H [facility] Last Admin: 06/27/18 21:30 Dose: 100 mg Losartan Potassium (Cozaar) 100 mg PO DAILY [facility] Last Admin: 06/27/18 09:06 Dose: Not Given Ondansetron HCl (Zofran Inj) 4 mg IVP Q6H PRN PRN Reason: Nausea/Vomiting Rosuvastatin Calcium (Crestor) 2.5 mg PO HS [facility] Last Admin: 06/27/18 21:29 Dose: 2.5 mg Sitagliptin Phosphate (Januvia) 100 mg PO DAILY [facility] Last Admin: 06/27/18 09:05 Dose: 100 mg - Labs Labs: 06/27/18 06:07 06/27/18 06:07 PT 10.9 SECONDS (9.7-12.2) 06/19/18 14:09 INR 1.0 06/19/18 14:09 APTT 77 SECONDS (21-34) H D 06/20/18 08:23
[2018-06-28] MEDS: (Novolog) Insulin Aspart, Recombinant 100 u/ml 10 ml vial SC SCH ×4 (08:15→21:46)
[2018-06-28 08:18] LABS: BASO # 0.1 K/uL (0.0-0.2); BASO % 0.6 % (0.0-2.0); EOS # 0.3 K/uL (0.0-0.7); EOS % 2.9 % (0.0-4.0); HEMOGLOBIN 11.8 g/dL (12.0-18.0); LYMPH # 1.9 K/uL (1.0-4.3); LYMPH % 17.7 % (20.0-40.0); MEAN CELL VOLUME 60.6 fL (80.0-94.0); MEAN CORPUSCULAR HEMOGLOBIN 19.2 pg (27.0-31.0); MEAN CORPUSCULAR HGB CONC 31.6 g/dL (33.0-37.0); MEAN PLATELET VOLUME 9.5 fL (7.2-11.7); MONO # 0.8 K/uL (0.0-0.8); MONO % 7.4 % (0.0-10.0); NEUT # 7.7 K/uL (1.8-7.0); NEUT % 71.4 % (50.0-75.0); NRBC % 0.1 % (0.0-2.0); RBC 6.16 Mil/uL (4.40-5.90); RED CELL DISTRIBUTION WIDTH 19.2 % (11.5-14.5); WHITE BLOOD COUNT 10.8 K/uL (4.8-10.8)
[2018-06-28 08:20] LABS: ALB/GLOB RATIO 1.3 (1.0-2.1); ALBUMIN 3.7 g/dL (3.5-5.0); ALT/SGPT 30 U/L (21-72); AST/SGOT 29 U/L (17-59); BLOOD UREA NITROGEN 14 mg/dL (9-20); CALCIUM 9.1 mg/dl (8.6-10.4); GFR NON-AFRICAN AMERICAN > 60
--- NOTE | 2018-06-28 10:58 | CP.PCM.PN ---
Subjective - Date & Time of Evaluation Date of Evaluation: 06/28/18 Time of Evaluation: 10:57 - Subjective Subjective: Nephrology Consultation Note: Assessment: stable Uncontrolled severe HTN with emergency: Improved NSTEMI, acute/sub-acute CVA Diabetic chronic Kidney Disease (E11.22) Hypertensive Chronic Kidney Disease (I12.9) Chronic Kidney Disease (N18.1) Stage 1 with ? mg proteinuria (R80.9) likely due to DM/HTN rectal CA, vitiligo stable b/l simple and complex renal cysts mild to moderate LVH Plan No acute need for renal replacement therapy at this time. Hypertension control with meds as ordered. Maintain hemodynamics stable. Avoid hypotension. Patient on losartan 100 mg/d. norvasc 10 mg/d. labetalol 100 mg tid. started aldactone 50 mg/d. deferred diuretics due to dizziness at present will target gradual decrease in BP considering CVA Monitor Input/Output, daily weights and renal function with basic metabolic panel Check urine analysis, spot protein/creatinine, albumin/creatinine ratio Secondary HTN work up with plasma renin/aldosterone, plasma metanephrine and renal artery Doppler: NEGATIVE Dose meds/antibiotics for GFR >60. Glycemic control Further work up/management as per primary team Thanks for allowing me to participate in care of your patient. Will follow patient with you. Please call if any Qs. had d/w team and family Dr Jonathan Casarez Office: [phone] Chief Complaint; dizziness Reason for consult: HTN management HPI: Pt is a 77 M with hx of diabetes Mellitus (10 years), hypertension (10 years) rectal CA, vitiligo presented with complaints of dizziness and gene ralized weakness. found to have severe uncontrolled HTN and acute/sub-acute CVA hence renal consulted for HTN management. pt says BP usually high. Denies OTC/herbal meds or NSAIDs No obvious episodes of low BP. ROS: besides dizziness, feels well. no other complaints Cardiovascular: No chest pain. Pulmonary: feels shortness of breath Gastrointestinal: no abdominal pain No nausea. No vomiting. Genitourinary: No pain while urinating. Denies blood in urine. All other negative except as mentioned in HPI Physical Examination: General Appearance: Comfortable, in no acute respiratory distress, co-operative . Vitals reviewed and noted as below Head; Atraumatic, normocephalic ENT: no ulcers no thrush. Tongue is midline/dry. Oropharynx: no rash or ulcers. EYES: Pupils are equal, round and reactive to light accommodation. Eye muscles and extraocular movement intact. Sclera is anicteric. Neck; supple no lymphadenopathy, no thyromegaly or bruit Lungs: Normal respiratory rate/effort. Breath sounds bilateral somewhat reduced at bases Heart: Normal rate. s1s2 normal. No rub or gallop. Extremities: no edema. No varicose veins Neurological: Patient is alert, awake and oriented to person, place and time. Strength bilateral appropriate and equal Skin: Warm and dry. Normal turgor. No rash. Palpitation: Normal elasticity for age. vitiligo changes+ Abdomen: Abdomen is soft. Bowel sounds +. There is no abdominal tenderness, no guarding/rigidity no organomegaly. old scars+ Psych: limited insight and normal affect/mood MSK: no joint tenderness or swelling. Digits and nails normal, no deformity : kidney or bladder not palpable Labs/imaging reviewed. Past medical history, past surgical history, family history, social history, allergy reviewed and noted as below Family hx: no hx of CKD. Rest non-contributory work up: UA 2+ protein mild to moderate LVH on echo renal imaging b/l simple and complex cyst, chronic adrenal wnl Objective - Vital Signs/Intake and Output Vital Signs (last 24 hours): Temp Pulse Resp BP Pulse Ox 98.3 F 64 18 160/72 H 97 06/28/18 07:00 06/28/18 07:00 06/28/18 07:00 06/28/18 07:00 06/28/18 07:00 Intake and Output: 06/28/18 06/28/18 06:59 18:59 Intake Total 0 Balance 0 - Medications Medications: Current Medications Acetaminophen (Tylenol 325mg Tab) 650 mg PO Q6 PRN PRN Reason: Headache Last Admin: 06/24/18 02:05 Dose: 650 mg Amlodipine Besylate (Norvasc) 10 mg PO DAILY [facility] Last Admin: 06/28/18 09:39 Dose: 10 mg Aspirin (Aspirin Chewable) 81 mg PO DAILY [facility] Last Admin: 06/22/18 09:19 Dose: 81 mg Enoxaparin Sodium (Lovenox) 30 mg SC DAILY [facility] Last Admin: 06/22/18 09:20 Dose: 30 mg Famotidine (Pepcid) 20 mg PO BID [facility] Last Admin: 06/28/18 09:39 Dose: 20 mg Hydralazine HCl (Apresoline) 25 mg PO Q4 PRN PRN Reason: SEE DOSE INSTRUCTIONS Last Admin: 06/25/18 09:36 Dose: 25 mg Insulin Aspart (Novolog) 0 unit SC ACHS [facility]; Protocol Last Admin: 06/28/18 08:15 Dose: 3 units Labetalol HCl (Trandate) 100 mg PO Q8H [facility] Last Admin: 06/28/18 05:53 Dose: 100 mg Losartan Potassium (Cozaar) 100 mg PO DAILY [facility] Last Admin: 06/28/18 09:39 Dose: 100 mg Ondansetron HCl (Zofran Inj) 4 mg IVP Q6H PRN PRN Reason: Nausea/Vomiting Rosuvastatin Calcium (Crestor) 2.5 mg PO HS [facility] Last Admin: 06/27/18 21:29 Dose: 2.5 mg Sitagliptin Phosphate (Januvia) 100 mg PO DAILY [facility] Last Admin: 06/28/18 09:39 Dose: 100 mg Spironolactone (Aldactone) 50 mg PO DAILY [facility] - Labs Labs: 06/28/18 07:20 06/28/18 07:20 PT 10.9 SECONDS (9.7-12.2) 06/19/18 14:09 INR 1.0 06/19/18 14:09 APTT 77 SECONDS (21-34) H D 06/20/18 08:23
--- NOTE | 2018-06-28 11:52 | CP.PCM.PN ---
Subjective - Date & Time of Evaluation Date of Evaluation: 06/28/18 Time of Evaluation: 11:50 - Subjective Subjective: FEELS SAME. GENERAL DEBILITY PRESENT. DIZINESS OFF AND ON. Objective - Vital Signs/Intake and Output Vital Signs (last 24 hours): Temp Pulse Resp BP Pulse Ox 98.3 F 67 18 160/72 H 97 06/28/18 07:00 06/28/18 08:00 06/28/18 07:00 06/28/18 07:00 06/28/18 07:00 Intake and Output: 06/28/18 06/28/18 06:59 18:59 Intake Total 0 Balance 0 - Medications Medications: Current Medications Acetaminophen (Tylenol 325mg Tab) 650 mg PO Q6 PRN PRN Reason: Headache Last Admin: 06/24/18 02:05 Dose: 650 mg Amlodipine Besylate (Norvasc) 10 mg PO DAILY [facility] Last Admin: 06/28/18 09:39 Dose: 10 mg Aspirin (Aspirin Chewable) 81 mg PO DAILY [facility] Last Admin: 06/22/18 09:19 Dose: 81 mg Enoxaparin Sodium (Lovenox) 30 mg SC DAILY [facility] Last Admin: 06/22/18 09:20 Dose: 30 mg Famotidine (Pepcid) 20 mg PO BID [facility] Last Admin: 06/28/18 09:39 Dose: 20 mg Hydralazine HCl (Apresoline) 25 mg PO Q4 PRN PRN Reason: SEE DOSE INSTRUCTIONS Last Admin: 06/25/18 09:36 Dose: 25 mg Insulin Aspart (Novolog) 0 unit SC [facility]; Protocol Last Admin: 06/28/18 08:15 Dose: 3 units Labetalol HCl (Trandate) 100 mg PO Q8H [facility] Last Admin: 06/28/18 05:53 Dose: 100 mg Losartan Potassium (Cozaar) 100 mg PO DAILY [facility] Last Admin: 06/28/18 09:39 Dose: 100 mg Ondansetron HCl (Zofran Inj) 4 mg IVP Q6H PRN PRN Reason: Nausea/Vomiting Rosuvastatin Calcium (Crestor) 2.5 mg PO HS [facility] Last Admin: 06/27/18 21:29 Dose: 2.5 mg Sitagliptin Phosphate (Januvia) 100 mg PO DAILY [facility] Last Admin: 06/28/18 09:39 Dose: 100 mg Spironolactone (Aldactone) 50 mg PO DAILY [facility] - Labs Labs: 06/28/18 07:20 06/28/18 07:20 PT 10.9 SECONDS (9.7-12.2) 06/19/18 14:09 INR 1.0 06/19/18 14:09 APTT 77 SECONDS (21-34) H D 06/20/18 08:23 - Constitutional Appears: No Acute Distress, Chronically Ill - Eye Exam Eye Exam: PERRL - ENT Exam ENT Exam: Normal Exam - Respiratory Exam Respiratory Exam: Clear to Ausculation Bilateral, NORMAL BREATHING PATTERN - Cardiovascular Exam Cardiovascular Exam: REGULAR RHYTHM, +S1, +S2 - GI/Abdominal Exam GI & Abdominal Exam: Soft, Normal Bowel Sounds - Extremities Exam Extremities Exam: Full ROM, Normal Capillary Refill, Normal Inspection. absent: Joint Swelling, Pedal Edema - Neurological Exam Neurological Exam: Alert, Awake, CN II-XII Intact, Normal Gait, Oriented x3 Assessment and Plan - Assessment and Plan (Free Text) Assessment: CVA. HTN. Plan: FOR PT/OT. CT PRESENT TREATMENT. FOR IRA.
[2018-06-28] MEDS: Rosuvastatin Calcium 2.5 mg Tab PO SCH (21:42)
--- NOTE | 2018-06-28 23:58 | CP.PCM.PN ---
Subjective - Date & Time of Evaluation Date of Evaluation: 06/28/18 Time of Evaluation: 17:40 - Subjective Subjective: Patient seen and evaluated deneis chest pain and dyspnea BP better Physical Examination - Constitutional Appears: No Acute Distress, Chronically Ill - Eye Exam Eye Exam: PERRL - ENT Exam ENT Exam: Mucous Membranes Moist - Respiratory Exam Respiratory Exam: Clear to Ausculation Bilateral, NORMAL BREATHING PATTERN - Cardiovascular Exam Cardiovascular Exam: REGULAR RHYTHM, +S1, +S2 - GI/Abdominal Exam GI & Abdominal Exam: Soft, Normal Bowel Sounds - Neurological Exam Neurological Exam: Alert, Awake, CN II-XII Intact, Normal Gait, Oriented x3 - Psychiatric Exam Psychiatric exam: Normal Affect, Normal Mood Assessment and Plan - Assessment and Plan (Free Text) Assessment: cva cerebeller. htn. Plan: 77-year-old male with a history of CAD, hypertension, hyperlipidemia, colorectal cancer. Patient admitted with acute CVA, non-ST elevation, involving the cerebellum, associated with symptoms of vertigo. Improving now. Clinically stable. Objective - Vital Signs/Intake and Output Vital Signs (last 24 hours): Temp Pulse Resp BP Pulse Ox 97.9 F 72 20 172/74 H 97 06/28/18 15:20 06/28/18 21:42 06/28/18 15:20 06/28/18 21:42 06/28/18 15:20 Intake and Output: 06/28/18 06/29/18 18:59 06:59 Intake Total 480 320 Output Total 300 Balance 180 320 - Medications Medications: Current Medications Acetaminophen (Tylenol 325mg Tab) 650 mg PO Q6 PRN PRN Reason: Headache Last Admin: 06/24/18 02:05 Dose: 650 mg Amlodipine Besylate (Norvasc) 10 mg PO DAILY [facility] Last Admin: 06/28/18 09:39 Dose: 10 mg Aspirin (Aspirin Chewable) 81 mg PO DAILY [facility] Last Admin: 06/22/18 09:19 Dose: 81 mg Enoxaparin Sodium (Lovenox) 30 mg SC DAILY [facility] Last Admin: 06/22/18 09:20 Dose: 30 mg Famotidine (Pepcid) 20 mg PO BID [facility] Last Admin: 06/28/18 17:41 Dose: 20 mg Hydralazine HCl (Apresoline) 25 mg PO Q4 PRN PRN Reason: SEE DOSE INSTRUCTIONS Last Admin: 06/25/18 09:36 Dose: 25 mg Insulin Aspart (Novolog) 0 unit SC ACHS [facility]; Protocol Last Admin: 06/28/18 21:46 Dose: Not Given Labetalol HCl (Trandate) 100 mg PO Q8H [facility] Last Admin: 06/28/18 21:42 Dose: 100 mg Losartan Potassium (Cozaar) 100 mg PO DAILY [facility] Last Admin: 06/28/18 09:39 Dose: 100 mg Ondansetron HCl (Zofran Inj) 4 mg IVP Q6H PRN PRN Reason: Nausea/Vomiting Rosuvastatin Calcium (Crestor) 2.5 mg PO HS [facility] Last Admin: 06/28/18 21:42 Dose: 2.5 mg Sitagliptin Phosphate (Januvia) 100 mg PO DAILY [facility] Last Admin: 06/28/18 09:39 Dose: 100 mg Spironolactone (Aldactone) 50 mg PO DAILY [facility] Last Admin: 06/28/18 11:30 Dose: 50 mg - Labs Labs: 06/28/18 07:20 06/28/18 07:20 PT 10.9 SECONDS (9.7-12.2) 06/19/18 14:09 INR 1.0 06/19/18 14:09 APTT 77 SECONDS (21-34) H D 06/20/18 08:23
[2018-06-29 07:43] LABS: HEMOGLOBIN 11.9 g/dL (12.0-18.0); MEAN CORPUSCULAR HEMOGLOBIN 19.4 pg (27.0-31.0); MEAN CORPUSCULAR HGB CONC 31.9 g/dL (33.0-37.0); MEAN PLATELET VOLUME 9.3 fL (7.2-11.7); RBC 6.13 Mil/uL (4.40-5.90); RED CELL DISTRIBUTION WIDTH 19.2 % (11.5-14.5)
[2018-06-29 07:54] LABS: ALB/GLOB RATIO 1.3 (1.0-2.1); ALBUMIN 3.7 g/dL (3.5-5.0); ALT/SGPT 21 U/L (21-72); AST/SGOT 25 U/L (17-59); BLOOD UREA NITROGEN 15 mg/dL (9-20); CALCIUM 9.6 mg/dl (8.6-10.4); GFR NON-AFRICAN AMERICAN > 60
[2018-06-29] MEDS: (Novolog) Insulin Aspart, Recombinant 100 u/ml 10 ml vial SC SCH ×4 (08:15→21:07)
[2018-06-29 08:50] LABS: EOS # 0.3 K/uL (0.0-0.7); LYMPH # 1.4 K/uL (1.0-4.3); NEUT # 8.3 K/uL (1.8-7.0)
--- NOTE | 2018-06-29 13:24 | CP.PCM.PN ---
Subjective - Date & Time of Evaluation Date of Evaluation: 06/29/18 Time of Evaluation: 13:22 - Subjective Subjective: CHASE AND DIZZINESS. S/P CVA. HTN. VS STABLE. Objective - Vital Signs/Intake and Output Vital Signs (last 24 hours): Temp Pulse Resp BP Pulse Ox 98.7 F 64 18 170/78 H 99 06/29/18 07:00 06/29/18 07:00 06/29/18 07:00 06/29/18 07:00 06/29/18 07:00 Intake and Output: 06/29/18 06/29/18 06:59 18:59 Intake Total 420 Output Total 500 Balance -80 - Medications Medications: Current Medications Acetaminophen (Tylenol 325mg Tab) 650 mg PO Q6 PRN PRN Reason: Headache Last Admin: 06/24/18 02:05 Dose: 650 mg Amlodipine Besylate (Norvasc) 10 mg PO DAILY [facility] Last Admin: 06/29/18 09:38 Dose: 10 mg Aspirin (Aspirin Chewable) 81 mg PO DAILY [facility] Last Admin: 06/22/18 09:19 Dose: 81 mg Enoxaparin Sodium (Lovenox) 30 mg SC DAILY [facility] Last Admin: 06/22/18 09:20 Dose: 30 mg Famotidine (Pepcid) 20 mg PO BID [facility] Last Admin: 06/29/18 09:38 Dose: 20 mg Hydralazine HCl (Apresoline) 25 mg PO Q4 PRN PRN Reason: SEE DOSE INSTRUCTIONS Last Admin: 06/25/18 09:36 Dose: 25 mg Insulin Aspart (Novolog) 0 unit SC [facility]; Protocol Last Admin: 06/29/18 12:25 Dose: 8 units Labetalol HCl (Trandate) 200 mg PO BID [facility] Last Admin: 06/29/18 09:44 Dose: 200 mg Losartan Potassium (Cozaar) 100 mg PO DAILY [facility] Last Admin: 06/29/18 09:38 Dose: 100 mg Ondansetron HCl (Zofran Inj) 4 mg IVP Q6H PRN PRN Reason: Nausea/Vomiting Last Admin: 06/29/18 08:15 Dose: 4 mg Rosuvastatin Calcium (Crestor) 2.5 mg PO HS [facility] Last Admin: 06/28/18 21:42 Dose: 2.5 mg Sitagliptin Phosphate (Januvia) 100 mg PO DAILY [facility] Last Admin: 06/29/18 09:38 Dose: 100 mg Spironolactone (Aldactone) 50 mg PO DAILY [facility] Last Admin: 06/29/18 09:37 Dose: 50 mg - Labs Labs: 06/29/18 07:24 06/29/18 07:24 PT 10.9 SECONDS (9.7-12.2) 06/19/18 14:09 INR 1.0 06/19/18 14:09 APTT 77 SECONDS (21-34) H D 06/20/18 08:23 - Constitutional Appears: Chronically Ill - Eye Exam Eye Exam: PERRL - ENT Exam ENT Exam: Mucous Membranes Moist - Respiratory Exam Respiratory Exam: Clear to Ausculation Bilateral, NORMAL BREATHING PATTERN - Cardiovascular Exam Cardiovascular Exam: REGULAR RHYTHM, +S1, +S2 - GI/Abdominal Exam GI & Abdominal Exam: Soft, Normal Bowel Sounds - Back Exam Back Exam: NORMAL INSPECTION - Neurological Exam Neurological Exam: Alert, Awake, CN II-XII Intact, Normal Gait, Oriented x3 Assessment and Plan - Assessment and Plan (Free Text) Assessment: SAME. Plan: FOR IRA.
--- NOTE | 2018-06-29 15:46 | CP.PCM.PN ---
Subjective - Date & Time of Evaluation Date of Evaluation: 06/29/18 Time of Evaluation: 15:41 - Subjective Subjective: Nephrology Consultation Note: Assessment: stable Uncontrolled severe HTN with emergency: Improved NSTEMI, acute/sub-acute CVA Diabetic chronic Kidney Disease (E11.22) Hypertensive Chronic Kidney Disease (I12.9) Chronic Kidney Disease (N18.1) Stage 1 with ? mg proteinuria (R80.9) likely due to DM/HTN rectal CA, vitiligo stable b/l simple and complex renal cysts mild to moderate LVH Plan No acute need for renal replacement therapy at this time. Hypertension control with meds as ordered. Maintain hemodynamics stable. Avoid hypotension. Patient on losartan 100 mg/d. norvasc 10 mg/d. labetalol 100 mg tid. started aldactone 50 mg/d. deferred diuretics due to dizziness at present. increased labetalol 200 mg bid. will target gradual decrease in BP considering CVA Monitor Input/Output, daily weights and renal function with basic metabolic panel Check urine analysis, spot protein/creatinine, albumin/creatinine ratio Secondary HTN work up with plasma renin/aldosterone, plasma metanephrine and renal artery Doppler: NEGATIVE Dose meds/antibiotics for GFR >60. Glycemic control Further work up/management as per primary team Thanks for allowing me to participate in care of your patient. Will follow patient with you. Please call if any Qs. had d/w team and family Dr Jonathan Casarez Office: [phone] Chief Complaint; dizziness Reason for consult: HTN management HPI: Pt is a 77 M with hx of diabetes Mellitus (10 years), hypertension (10 years) rectal CA, vitiligo presented with complaints of dizziness and generalized weakness. found to have severe uncontrolled HTN and acute/sub-acute CVA hence renal consulted for HTN management. pt says BP usually high. Denies OTC/herbal meds or NSAIDs No obvious episodes of low BP. ROS: besides dizziness, feels well. no other complaints Cardiovascular: No chest pain. Pulmonary: feels shortness of breath Gastrointestinal: no abdominal pain No nausea. No vomiting. Genitourinary: No pain while urinating. Denies blood in urine. All other negative except as mentioned in HPI Physical Examination: General Appearance: Comfortable, in no acute respiratory distress, co-operative . Vitals reviewed and noted as below Head; Atraumatic, normocephalic ENT: no ulcers no thrush. Tongue is midline/dry. Oropharynx: no rash or ulcers. EYES: Pupils are equal, round and reactive to light accommodation. Eye muscles and extraocular movement intact. Sclera is anicteric. Neck; supple no lymphadenopathy, no thyromegaly or bruit Lungs: Normal respiratory rate/effort. Breath sounds bilateral somewhat reduced at bases Heart: Normal rate. s1s2 normal. No rub or gallop. Extremities: no edema. No varicose veins Neurological: Patient is alert, awake and oriented to person, place and time. Strength bilateral appropriate and equal Skin: Warm and dry. Normal turgor. No rash. Palpitation: Normal elasticity for age. vitiligo changes+ Abdomen: Abdomen is soft. Bowel sounds +. There is no abdominal tenderness, no guarding/rigidity no organomegaly. old scars+ Psych: limited insight and normal affect/mood MSK: no joint tenderness or swelling. Digits and nails normal, no deformity : kidney or bladder not palpable Labs/imaging reviewed. Past medical history, past surgical history, family history, social history, allergy reviewed and noted as below Family hx: no hx of CKD. Rest non-contributory work up: UA 2+ protein mild to moderate LVH on echo renal imaging b/l simple and complex cyst, chronic adrenal wnl Objective - Vital Signs/Intake and Output Vital Signs (last 24 hours): Temp Pulse Resp BP Pulse Ox 98.7 F 64 18 170/78 H 99 06/29/18 07:00 06/29/18 07:00 06/29/18 07:00 06/29/18 07:00 06/29/18 07:00 Intake and Output: 06/29/18 06/29/18 06:59 18:59 Intake Total 420 600 Output Total 500 300 Balance -80 300 - Medications Medications: Current Medications Acetaminophen (Tylenol 325mg Tab) 650 mg PO Q6 PRN PRN Reason: Headache Last Admin: 06/24/18 02:05 Dose: 650 mg Amlodipine Besylate (Norvasc) 10 mg PO DAILY [facility] Last Admin: 06/29/18 09:38 Dose: 10 mg Aspirin (Aspirin Chewable) 81 mg PO DAILY [facility] Last Admin: 06/22/18 09:19 Dose: 81 mg Enoxaparin Sodium (Lovenox) 30 mg SC DAILY [facility] Last Admin: 06/22/18 09:20 Dose: 30 mg Famotidine (Pepcid) 20 mg PO BID [facility] Last Admin: 06/29/18 09:38 Dose: 20 mg Hydralazine HCl (Apresoline) 25 mg PO Q4 PRN PRN Reason: SEE DOSE INSTRUCTIONS Last Admin: 06/25/18 09:36 Dose: 25 mg Insulin Aspart (Novolog) 0 unit SC [facility]; Protocol Last Admin: 06/29/18 12:25 Dose: 8 units Labetalol HCl (Trandate) 200 mg PO BID [facility] Last Admin: 06/29/18 09:44 Dose: 200 mg Losartan Potassium (Cozaar) 100 mg PO DAILY [facility] Last Admin: 06/29/18 09:38 Dose: 100 mg Ondansetron HCl (Zofran Inj) 4 mg IVP Q6H PRN PRN Reason: Nausea/Vomiting Last Admin: 06/29/18 08:15 Dose: 4 mg Rosuvastatin Calcium (Crestor) 2.5 mg PO HS [facility] Last Admin: 06/28/18 21:42 Dose: 2.5 mg Sitagliptin Phosphate (Januvia) 100 mg PO DAILY [facility] Last Admin: 06/29/18 09:38 Dose: 100 mg Spironolactone (Aldactone) 50 mg PO DAILY [facility] Last Admin: 06/29/18 09:37 Dose: 50 mg - Labs Labs: 06/29/18 07:24 06/29/18 07:24 PT 10.9 SECONDS (9.7-12.2) 06/19/18 14:09 INR 1.0 06/19/18 14:09 APTT 77 SECONDS (21-34) H D 06/20/18 08:23
[2018-06-29 17:08] VITALS: RESP 20
[2018-06-29] MEDS: Rosuvastatin Calcium 2.5 mg Tab PO SCH (21:07)
--- NOTE | 2018-06-29 22:40 | CP.PCM.PN ---
Subjective - Date & Time of Evaluation Date of Evaluation: 06/29/18 Time of Evaluation: 16:15 - Subjective Subjective: Patient seen and evaluated Deneis chest pain and dyspnea Physical Examination - Constitutional Appears: No Acute Distress, Chronically Ill - Eye Exam Eye Exam: PERRL - ENT Exam ENT Exam: Mucous Membranes Moist - Respiratory Exam Respiratory Exam: Clear to Ausculation Bilateral, NORMAL BREATHING PATTERN - Cardiovascular Exam Cardiovascular Exam: REGULAR RHYTHM, +S1, +S2 - GI/Abdominal Exam GI & Abdominal Exam: Soft, Normal Bowel Sounds - Neurological Exam Neurological Exam: Alert, Awake, CN II-XII Intact, Normal Gait, Oriented x3 - Psychiatric Exam Psychiatric exam: Normal Affect, Normal Mood Assessment and Plan - Assessment and Plan (Free Text) Assessment: cva cerebeller. htn. Plan: 77-year-old male with a history of CAD, hypertension, hyperlipidemia, colorectal cancer. Patient admitted with acute CVA, non-ST elevation, involving the cerebellum, associated with symptoms of vertigo. Improving now. Clinically stable. Objective - Vital Signs/Intake and Output Vital Signs (last 24 hours): Temp Pulse Resp BP Pulse Ox 97.8 F 67 20 148/75 98 06/29/18 16:00 06/29/18 17:48 06/29/18 16:00 06/29/18 17:48 06/29/18 16:00 Intake and Output: 06/29/18 06/30/18 18:59 06:59 Intake Total 600 Output Total 300 Balance 300 - Medications Medications: Current Medications Acetaminophen (Tylenol 325mg Tab) 650 mg PO Q6 PRN PRN Reason: Headache Last Admin: 06/24/18 02:05 Dose: 650 mg Amlodipine Besylate (Norvasc) 10 mg PO DAILY [facility] Last Admin: 06/29/18 09:38 Dose: 10 mg Aspirin (Aspirin Chewable) 81 mg PO DAILY [facility] Last Admin: 06/22/18 09:19 Dose: 81 mg Enoxaparin Sodium (Lovenox) 30 mg SC DAILY [facility] Last Admin: 06/22/18 09:20 Dose: 30 mg Famotidine (Pepcid) 20 mg PO BID [facility] Last Admin: 06/29/18 17:45 Dose: 20 mg Hydralazine HCl (Apresoline) 25 mg PO Q4 PRN PRN Reason: SEE DOSE INSTRUCTIONS Last Admin: 06/25/18 09:36 Dose: 25 mg Insulin Aspart (Novolog) 0 unit SC [facility]; Protocol Last Admin: 06/29/18 21:07 Dose: Not Given Labetalol HCl (Trandate) 200 mg PO BID [facility] Last Admin: 06/29/18 17:48 Dose: 200 mg Losartan Potassium (Cozaar) 100 mg PO DAILY [facility] Last Admin: 06/29/18 09:38 Dose: 100 mg Ondansetron HCl (Zofran Inj) 4 mg IVP Q6H PRN PRN Reason: Nausea/Vomiting Last Admin: 06/29/18 08:15 Dose: 4 mg Rosuvastatin Calcium (Crestor) 2.5 mg PO HS [facility] Last Admin: 06/29/18 21:07 Dose: 2.5 mg Sitagliptin Phosphate (Januvia) 100 mg PO DAILY [facility] Last Admin: 06/29/18 09:38 Dose: 100 mg Spironolactone (Aldactone) 50 mg PO DAILY [facility] Last Admin: 06/29/18 09:37 Dose: 50 mg - Labs Labs: 06/29/18 07:24 06/29/18 07:24 PT 10.9 SECONDS (9.7-12.2) 06/19/18 14:09 INR 1.0 06/19/18 14:09 APTT 77 SECONDS (21-34) H D 06/20/18 08:23
--- NOTE | 2018-06-30 00:19 | PN ---
DATE: 06/29/2018 LOCATION: 650, bed B. SUBJECTIVE: This is a 77-year-old male seen out of the intensive care unit in the floor without significant reported clinical changes or reported active bleeding. The entire chart is reviewed including but not limited to the most recent lab and radiology study results, current and the previous medication lists, current and the previous medical events. The patient is still having intermittent period of dizziness with less oral intake. No reported active GI bleeding. The entire chart is reviewed including the most recent lab results and today his white blood cells 11, hemoglobin 11.9 with low indices, highly suggestive of hypochromic microcytic anemia. Blood glucose level 382 with normal liver function tests. PHYSICAL EXAMINATION: GENERAL: A 77-year-old male. VITAL SIGNS: Afebrile with pulse of 70, respiratory rate 20 to 22, blood pressure of 144/70. HEENT: Showed pale, dry oral mucous membrane. Nonicteric sclerae. LUNGS: Few scattered crepitation. Decreased air entry at bases. HEART: Positive S1 and S2. ABDOMEN: Soft with mild generalized tenderness. No mass or organomegaly. No rebound tenderness or guarding. EXTREMITIES: Mild lower extremity edematous changes. No clubbing or cyanosis. NEUROLOGIC: No reported new neurological deficits, sensory or motor. IMPRESSION: 1. 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 2. Recent history of cerebrovascular accident. 3. Known history of hypertension, hyperlipidemia, coronary artery disease. 4. Poorly controlled diabetes mellitus. 5. Known history of colon carcinoma. 6. Vertigo secondary to above. 7. History of dysphagia, mildly improving. 8. Drug-induced coagulopathy. SUGGESTIONS: 1. Continue current management. 2. Peripheral versus central hyperalimentation. 3. Antireflux measure. 4. Due to the patient's clinical presentation, no aggressive GI workup in the meantime until the patient is more stable clinically. Sarah Fowler MD
[2018-06-30] MEDS: (Novolog) Insulin Aspart, Recombinant 100 u/ml 10 ml vial SC SCH ×2 (08:30→12:29)
[2018-06-30 08:37] VITALS: BP 135/76; PULSE 64; TEMP 97.9; O2SAT 96
--- NOTE | 2018-06-30 13:06 | CP.PCM.PN ---
Subjective - Date & Time of Evaluation Date of Evaluation: 06/30/18 Time of Evaluation: 13:03 - Subjective Subjective: condition same. general debility. cva. lt cerebellar. htn. Objective - Vital Signs/Intake and Output Vital Signs (last 24 hours): Temp Pulse Resp BP Pulse Ox 97.9 F 64 20 135/76 96 06/30/18 07:00 06/30/18 07:00 06/30/18 07:00 06/30/18 07:00 06/30/18 07:00 Intake and Output: 06/30/18 06/30/18 06:59 18:59 Intake Total 240 Output Total 550 Balance -310 - Medications Medications: Current Medications Acetaminophen (Tylenol 325mg Tab) 650 mg PO Q6 PRN PRN Reason: Headache Last Admin: 06/24/18 02:05 Dose: 650 mg Amlodipine Besylate (Norvasc) 10 mg PO DAILY [facility] Last Admin: 06/30/18 09:34 Dose: 10 mg Aspirin (Aspirin Chewable) 81 mg PO DAILY [facility] Last Admin: 06/22/18 09:19 Dose: 81 mg Enoxaparin Sodium (Lovenox) 30 mg SC DAILY [facility] Last Admin: 06/22/18 09:20 Dose: 30 mg Famotidine (Pepcid) 20 mg PO BID [facility] Last Admin: 06/30/18 09:34 Dose: 20 mg Hydralazine HCl (Apresoline) 25 mg PO Q4 PRN PRN Reason: SEE DOSE INSTRUCTIONS Last Admin: 06/25/18 09:36 Dose: 25 mg Insulin Aspart (Novolog) 0 unit SC [facility]; Protocol Last Admin: 06/30/18 12:29 Dose: 3 units Labetalol HCl (Trandate) 200 mg PO BID [facility] Last Admin: 06/29/18 17:48 Dose: 200 mg Losartan Potassium (Cozaar) 100 mg PO DAILY [facility] Last Admin: 06/30/18 09:34 Dose: 100 mg Ondansetron HCl (Zofran Inj) 4 mg IVP Q6H PRN PRN Reason: Nausea/Vomiting Last Admin: 06/29/18 08:15 Dose: 4 mg Pneumococcal Polyvalent Vaccine (Pneumovax 23 Vaccine) 0.5 ml IM .ONCE ONE Stop: 06/30/18 14:01 Rosuvastatin Calcium (Crestor) 2.5 mg PO [facility] Last Admin: 06/29/18 21:07 Dose: 2.5 mg Sitagliptin Phosphate (Januvia) 100 mg PO DAILY [facility] Last Admin: 06/30/18 09:40 Dose: 100 mg Spironolactone (Aldactone) 50 mg PO DAILY [facility] Last Admin: 06/30/18 09:34 Dose: 50 mg - Labs Labs: 06/29/18 07:24 06/29/18 07:24 PT 10.9 SECONDS (9.7-12.2) 06/19/18 14:09 INR 1.0 06/19/18 14:09 APTT 77 SECONDS (21-34) H D 06/20/18 08:23 - Constitutional Appears: Chronically Ill - Eye Exam Eye Exam: PERRL - ENT Exam ENT Exam: Normal Exam - Respiratory Exam Respiratory Exam: Clear to Ausculation Bilateral, NORMAL BREATHING PATTERN - Cardiovascular Exam Cardiovascular Exam: REGULAR RHYTHM, +S1, +S2 - GI/Abdominal Exam GI & Abdominal Exam: Soft, Normal Bowel Sounds - Extremities Exam Extremities Exam: Full ROM, Normal Capillary Refill, Normal Inspection. absent: Joint Swelling, Pedal Edema - Neurological Exam Neurological Exam: Alert, Awake, CN II-XII Intact, Normal Gait, Oriented x3 - Psychiatric Exam Psychiatric exam: Normal Affect, Normal Mood Assessment and Plan - Assessment and Plan (Free Text) Assessment: s/p cva, lt cerebeller stable with arnold and dizziness. Plan: ok for subacute rehab.
[2018-06-30] MEDS ORDERED: Pneumococcal 23-Valent Vaccine IM ONE (14:00)
--- NOTE | 2018-06-30 15:10 | CP.PCM.PN ---
Subjective - Date & Time of Evaluation Date of Evaluation: 06/30/18 Time of Evaluation: 11:00 - Subjective Subjective: Nephrology Consultation Note: Assessment: stable Uncontrolled severe HTN with emergency: Improved NSTEMI, acute/sub-acute CVA Diabetic chronic Kidney Disease (E11.22) Hypertensive Chronic Kidney Disease (I12.9) Chronic Kidney Disease (N18.1) Stage 1 with ? mg proteinuria (R80.9) likely due to DM/HTN rectal CA, vitiligo stable b/l simple and complex renal cysts mild to moderate LVH Plan No acute need for renal replacement therapy at this time. Hypertension control with meds as ordered. Maintain hemodynamics stable. Avoid hypotension. Patient on losartan 100 mg/d. norvasc 10 mg/d. labetalol 100 mg tid. started aldactone 50 mg/d. deferred diuretics due to dizziness at present. increased labetalol 200 mg bid. Monitor Input/Output, daily weights and renal function with basic metabolic panel Check urine analysis, spot protein/creatinine, albumin/creatinine ratio Secondary HTN work up with plasma renin/aldosterone, plasma metanephrine and renal artery Doppler: NEGATIVE Dose meds/antibiotics for GFR >60. Glycemic control Further work up/management as per primary team pt stable for d/c from renal perspective when planned Thanks for allowing me to participate in care of your patient. Will follow patient with you. Please call if any Qs. had d/w team and family Dr Jonathan Casarez Office: [phone] Chief Complaint; dizziness Reason for consult: HTN management HPI: Pt is a 77 M with hx of diabetes Mellitus (10 years), hypertension (10 years) rectal CA, vitiligo presented with complaints of dizziness and generalized weakness. found to have severe uncontrolled HTN and acute/sub-acute CVA hence renal consulted for HTN management. pt says BP usually high. Denies OTC/herbal meds or NSAIDs No obvious episodes of low BP. ROS: besides dizziness, feels well. no other complaints Cardiovascular: No chest pain. Pulmonary: feels shortness of breath Gastrointestinal: no abdominal pain No nausea. No vomiting. Genitourinary: No pain while urinating. Denies blood in urine. All other negative except as mentioned in HPI Physical Examination: General Appearance: Comfortable, in no acute respiratory distress, co-operative . Vitals reviewed and noted as below Head; Atraumatic, normocephalic ENT: no ulcers no thrush. Tongue is midline/dry. Oropharynx: no rash or ulcers. EYES: Pupils are equal, round and reactive to light accommodation. Eye muscles and extraocular movement intact. Sclera is anicteric. Neck; supple no lymphadenopathy, no thyromegaly or bruit Lungs: Normal respiratory rate/effort. Breath sounds bilateral somewhat reduced at bases Heart: Normal rate. s1s2 normal. No rub or gallop. Extremities: no edema. No varicose veins Neurological: Patient is alert, awake and oriented to person, place and time. Strength bilateral appropriate and equal Skin: Warm and dry. Normal turgor. No rash. Palpitation: Normal elasticity for age. vitiligo changes+ Abdomen: Abdomen is soft. Bowel sounds +. There is no abdominal tenderness, no guarding/rigidity no organomegaly. old scars+ Psych: limited insight and normal affect/mood MSK: no joint tenderness or swelling. Digits and nails normal, no deformity : kidney or bladder not palpable Labs/imaging reviewed. Past medical history, past surgical history, family history, social history, allergy reviewed and noted as below Family hx: no hx of CKD. Rest non-contributory work up: UA 2+ protein mild to moderate LVH on echo renal imaging b/l simple and complex cyst, chronic adrenal wnl Objective - Vital Signs/Intake and Output Vital Signs (last 24 hours): Temp Pulse Resp BP Pulse Ox 97.9 F 64 20 135/76 96 06/30/18 07:00 06/30/18 07:00 06/30/18 07:00 06/30/18 07:00 06/30/18 07:00 Intake and Output: 06/30/18 06/30/18 06:59 18:59 Intake Total 240 Output Total 550 Balance -310 - Medications Medications: Current Medications Acetaminophen (Tylenol 325mg Tab) 650 mg PO Q6 PRN PRN Reason: Headache Last Admin: 06/24/18 02:05 Dose: 650 mg Amlodipine Besylate (Norvasc) 10 mg PO DAILY [facility] Last Admin: 06/30/18 09:34 Dose: 10 mg Aspirin (Aspirin Chewable) 81 mg PO DAILY [facility] Last Admin: 06/22/18 09:19 Dose: 81 mg Enoxaparin Sodium (Lovenox) 30 mg SC DAILY [facility] Last Admin: 06/22/18 09:20 Dose: 30 mg Famotidine (Pepcid) 20 mg PO BID [facility] Last Admin: 06/30/18 09:34 Dose: 20 mg Hydralazine HCl (Apresoline) 25 mg PO Q4 PRN PRN Reason: SEE DOSE INSTRUCTIONS Last Admin: 06/25/18 09:36 Dose: 25 mg Insulin Aspart (Novolog) 0 unit SC [facility]; Protocol Last Admin: 06/30/18 12:29 Dose: 3 units Labetalol HCl (Trandate) 200 mg PO BID [facility] Last Admin: 06/29/18 17:48 Dose: 200 mg Losartan Potassium (Cozaar) 100 mg PO DAILY [facility] Last Admin: 06/30/18 09:34 Dose: 100 mg Ondansetron HCl (Zofran Inj) 4 mg IVP Q6H PRN PRN Reason: Nausea/Vomiting Last Admin: 06/29/18 08:15 Dose: 4 mg Rosuvastatin Calcium (Crestor) 2.5 mg PO HS [facility] Last Admin: 06/29/18 21:07 Dose: 2.5 mg Sitagliptin Phosphate (Januvia) 100 mg PO DAILY [facility] Last Admin: 06/30/18 09:40 Dose: 100 mg Spironolactone (Aldactone) 50 mg PO DAILY [facility] Last Admin: 06/30/18 09:34 Dose: 50 mg - Labs Labs: 06/29/18 07:24 06/29/18 07:24 PT 10.9 SECONDS (9.7-12.2) 06/19/18 14:09 INR 1.0 06/19/18 14:09 APTT 77 SECONDS (21-34) H D 06/20/18 08:23
--- NOTE | 2018-06-30 17:05 | PN ---
DATE: 06/30/2018 LOCATION: 650, bed B. SUBJECTIVE: This 77-year-old male seen and examined in rounds without significant clinical changes or reported active bleeding, but mild abdominal discomfort and slow response to verbal stimuli. No reported actual chest pain, palpitation or significant increased shortness of breath. No reported evidence of active GI bleeding. The entire chart is reviewed including but not limited to the most recent lab and radiology study results, current and the previous medication list, current and the previous medical events. Today's lab results however, still pending and the patient still has leukocytosis with low hemoglobin and hematocrit with elevated blood glucose level. PHYSICAL EXAMINATION: GENERAL: A 77-year-old male. VITAL SIGNS: Afebrile with pulse of 60, respiratory 20-22, blood pressure 130/72. HEENT: Showed pale dry oral mucoid membrane. Nonicteric sclerae. LUNGS: Few scattered crepitation. Decreased air entry at bases. HEART: Positive S1 and S2. ABDOMEN: Soft with mild generalized tenderness. No mass or organomegaly. No rebound tenderness or guarding. EXTREMITIES: Without significant clubbing, cyanosis or edema. NEUROLOGIC: No reported new neurological deficits, sensory or motor. IMPRESSION: 1. 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 2. Reported history of recent history of cardiovascular accident. 3. Known history of hyperlipidemia, hypertension, coronary artery disease. 4. Poorly controlled diabetes mellitus with periods of hypoglycemia before. 5. Known history of colon cancer. 6. Reported recent history of dysphagia, subsiding. 7. Vertigo secondary to above. SUGGESTIONS: 1. Continue current management. 2. Repeat stool for occult blood. 3. Due to the patient's clinical presentation, no aggressive GI workup to be arranged for now until the patient is more stable clinically. 4. Further recommendation to follow. Sarah Fowler MD
--- NOTE | 2018-06-30 17:30 | IP.NPCORE ---
Stroke Core Measure - CQM - Stroke Antithrombotic Prescribed: Yes Anticoagulation Prescribed for Atrial Flutter, Atrial Fibrillation and History of:: Not Applicable Statin prescribed: Yes
== END 2018-06-30 15:09 | DRG 64 ==
LOC: C.ER 12:48 → C.9E 18:50 → C.5S 21:07 → C.6T 06-20 20:11 → C.9I 06-22 13:44 → C.6T 06-27 22:05
PROVIDERS: ADMIT Internal Medicine; ATTEND Internal Medicine
PROC: 4A023N7 Measurement of Cardiac Sampling and Pressure, Left Heart, Percutaneous Approach (ICD-10-PCS; principal; 2018-06-20)
PROC: B2151ZZ Fluoroscopy of Left Heart using Low Osmolar Contrast (ICD-10-PCS; 2018-06-20)
PROC: B2111ZZ Fluoroscopy of Multiple Coronary Arteries using Low Osmolar Contrast (ICD-10-PCS; 2018-06-20)
DX: I63.9 Cerebral infarction, unspecified (principal); I21.4 Non-ST elevation (NSTEMI) myocardial infarction; I61.9 Nontraumatic intracerebral hemorrhage, unspecified; I16.1 Hypertensive emergency; I25.10 Atherosclerotic heart disease of native coronary artery without angina pectoris; I13.0 Hypertensive heart and chronic kidney disease with heart failure and stage 1 through stage 4 chronic kidney disease, or unspecified chronic kidney disease; N28.0 Ischemia and infarction of kidney; D68.9 Coagulation defect, unspecified; E87.2 Acidosis; E46 Unspecified protein-calorie malnutrition; I50.9 Heart failure, unspecified; L80 Vitiligo; G62.9 Polyneuropathy, unspecified; R47.02 Dysphasia; G91.4 Hydrocephalus in diseases classified elsewhere; E11.43 Type 2 diabetes mellitus with diabetic autonomic (poly)neuropathy; K31.84 Gastroparesis; D72.829 Elevated white blood cell count, unspecified; E11.22 Type 2 diabetes mellitus with diabetic chronic kidney disease; E11.65 Type 2 diabetes mellitus with hyperglycemia; N28.1 Cyst of kidney, acquired; N18.1 Chronic kidney disease, stage 1; K27.9 Peptic ulcer, site unspecified, unspecified as acute or chronic, without hemorrhage or perforation; E78.5 Hyperlipidemia, unspecified; R13.10 Dysphagia, unspecified; E77.8 Other disorders of glycoprotein metabolism; D63.8 Anemia in other chronic diseases classified elsewhere; I77.819 Aortic ectasia, unspecified site; K80.20 Calculus of gallbladder without cholecystitis without obstruction; E78.00 Pure hypercholesterolemia, unspecified; Z85.048 Personal history of other malignant neoplasm of rectum, rectosigmoid junction, and anus; Z85.46 Personal history of malignant neoplasm of prostate; Z86.73 Personal history of transient ischemic attack (TIA), and cerebral infarction without residual deficits; Z90.49 Acquired absence of other specified parts of digestive tract